=== PATIENT | male | born 1980 | race Caucasian/White ===

== ENCOUNTER → 2023-07-23 12:14 | Outpatient (REF) | payer OTHER, SELFPAY ==
[2023-07-23 12:35] VITALS: BP 117/71; BP_SYST 60
[2023-07-23 13:25] VITALS: BP 114/70
== END ==
LOC: RADI 12:14
PROVIDERS: ATTENDING PHYSICIAN Internal Medicine Hematology & Oncology; FAMILY PHYSICIAN Family Medicine
DX: Z45.2 Encounter for adjustment and management of vascular access device (principal); Z92.21 Personal history of antineoplastic chemotherapy; Z85.028 Personal history of other malignant neoplasm of stomach
CPT/HCPCS: 36590; 77001

== ENCOUNTER 2023-09-29 03:03 | Observation (INO) | payer SELFPAY ==
[2023-09-28 19:54] VITALS: BP 143/70
[2023-09-28 20:46] LABS: % Basophils 0.4 % (0-2); % Eosinophils 1.6 % (0-6); % Immature Granulocytes 0.3 % (0-0.5); % Lymphocytes 14.5 % (20.5-51.1); % Monocytes 6.6 % (1.7-9.3); % Neutrophils 76.6 % (42.2-75.2); Absolute Eosinophils 0.1 10^3/uL (0-0.7); Absolute Lymphocytes 1.1 10^3/uL (1.2-3.4); Absolute Monocytes 0.5 10^3/uL (0.1-0.6); Absolute Neutrophils 5.6 10^3/uL (1.4-6.5); Hematocrit 37.1 % (39.0-52.0); Hemoglobin 12.6 g/dL (13.0-18.0); Mean Corpuscular Hgb 29.2 pg (27.0-31.0); Mean Corpuscular Volume 85.9 fL (80.0-94.0); Mean Platelet Volume 9.5 fL (7.4-10.4); Nucleated Red Blood Cells % 0 % (-); Platelet Count 247 10^3/uL (130-400); Red Blood Cell Count 4.32 10^6/uL (4.70-6.10); Red Cell Dist. Width 14.4 % (11.5-14.5); White Blood Cell Count 7.3 10^3/uL (4.8-10.8)
[2023-09-28] MEDS: ZOFRAN 4 MG IV (20:46)
[2023-09-28 20:51] VITALS: BP 143/78
[2023-09-28 20:52] LABS: ALT (SGPT) 51 U/L (0-50); AST (SGOT) 46 U/L (17-59); Albumin 4.4 g/dl (3.5-5.0); Alkaline Phosphatase 144 U/L (38-126); Blood Urea Nitrogen 28 mg/dl (9-20); Calcium 9.7 mg/dl (8.4-10.2); Carbon Dioxide 24 mmol/L (22-30); Chloride 104 mmol/L (98-107); Glucose 115 mg/dl (70-99); Potassium 4.1 mmol/L (3.5-5.1); Sodium 138 mmol/L (135-145); Total Bilirubin 0.5 mg/dl (0.2-1.3); eGFR > 60.00
[2023-09-28 21:00] VITALS: BP 124/51
[2023-09-28 21:00] LABS: INR 1.01; PT 13.1 Sec (11.4-14.6)
[2023-09-28 21:01] LABS: APTT 26.8 Sec (23.4-35.0)
[2023-09-28 21:02] LABS: Alcohol None Detected; Lactic Acid 1.5 mmol/L (0.7-2.0); Lipase 67 U/L (23-300)
[2023-09-28] MEDS: NSS 1000 IV (21:12)
--- NOTE | 2023-09-28 21:50 | ED.GENMED ---
History of Present Illness
General
Chief Complaint: Abdominal Symptoms
Source: patient
Exam Limitations: none
Time Seen by Provider: 09/28/23 20:23
Nursing documentation reviewed up to this point in time: agreed with
History of Present Illness
History of Present Illness:
Pleasant 43-year-old male who presents with epigastric abdominal pain. Patient has had a history of esophageal cancer and had a gastrectomy 2 years ago. Patient states that he has had this pain intermittently, especially after drinking. He states
that tonight he had the pain without drinking. Symptoms began approximate 1 hour prior to arrival. Patient does have a history of gastroenteritis and GI bleed. He has had a port in his right upper chest which she states was removed recently.
Past History
Past History
ED Past Medical History: Cancer (Distal esophagus and gastric with partial esophagectomy and gastrectomy in March 2021) and Other (gastritis)
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
Social History
Tobacco: Former smoker
Alcohol: Occasional
Personal: Single
Living: with family
Employment: Employed
Review of Systems
Review of Systems
Allergies reviewed?: Yes
All Other Systems: ROS reviewed and negative except as documented in HPI and ROS
Constitutional: Reports no symptoms
EENT: Reports no symptoms
Respiratory: Reports no symptoms
Cardiac: Reports no symptoms
ABD/GI: Reports abdominal pain and nausea
: Reports no symptoms
Musculoskeletal: Reports no symptoms
Skin: Reports no symptoms
Neurological: Reports no symptoms
Endocrine: Reports no symptoms
Hematologic/Lymphatic: Reports no symptoms
Psychiatric: Reports no symptoms
Phy Exam
General Physical Exam
General Presentation: well appearing and no apparent distress
General Skin: warm and dry
General Habitus: normal
General Mental: alert
General Hydration: appears well hydrated
ENT Exam
ENT Exam: EOMI, pharynx normal, neck supple and normocephalic
Eye Exam
Eye Exam: PERRL, cornea clear and conjunctiva normal
Cardiovascular Exam
Cardiovascular Exam: regular rate/rhythm, no edema, no murmur and normal peripheral pulses
Pulmonary Exam
Pulmonary Exam: lungs clear, no respiratory distress, no rales, no crackles, no rhonchi, no stridor, no wheezing and no cough
Gastrointestinal Exam
Gastrointestinal Exam: normal bowel sounds, soft, non distended and guarding
Palpation: generalized: Mild tenderness
Neurological Exam
Neurological Exam: alert, oriented x3, no motor deficits and speech normal
Musculoskeletal Exam
Musculoskeletal Exam: full ROM and no edema
Skin Exam
Skin Exam: normal color, warm/dry, no rash and no petechia
Psychiatric Exam
Psychiatric Exam: normal mood/affect
Course
Orders/Labs/Results
Orders:
Orders
09/28/23 20:32
Electrocardiogram (*1) Urgent
Reason for Study: Bradycardia / Tachycardia
09/28/23 20:33
EKG- Treatment ONCE
09/28/23 20:34
Complete Blood Count/With Diff Urgent
Comprehensive Metabolic Panel Urgent
09/28/23 20:37
Urinalysis Reflex To Culture Urgent
Date Specimen was Collected: 09/29/23
Time Specimen was Collected: 00:06
09/28/23 20:40
Alcohol Urgent
Lactic Acid Urgent
Lipase Urgent
PTT Urgent
Prothrombin Time Urgent
09/28/23 20:44
Ondansetron Injectable [Zofran] 4 mg .ROUTE .[facility]
09/28/23 20:45
Ondansetron Injectable [Zofran] 4 mg IV NOW STA
09/28/23 21:11
0.9% Sodium Chloride 1000 ml [Nss] 1,000 ml IV BOLUS
09/28/23 21:36
Iohexol [Omnipaque] See Protocol PO NOW STA
09/28/23 21:55
Pantoprazole [Protonix IV] 80 mg IV NOW STA
09/28/23 23:25
CT Abd/Pel (IV only)-DH only Urgent
Comment:
Reason For Exam: abd pain, unable to tolerate po
09/29/23 00:04
HYDROmorphone [Dilaudid] 0.5 mg .ROUTE .[facility]
09/29/23 00:07
HYDROmorphone [Dilaudid] 0.5 mg IV NOW STA
09/29/23 00:43
US Abdomen Complete/Upper Urgent
Comment:
Reason For Exam: epigastric and RUQ pain
09/29/23 02:47
Admit/Transfer Patient As Directed
Co-Sign Provider:
Level of Care: Observation services
Assign to:: Medical/Surgical
Physician / Group: Derik
Diagnosis: Abd Pain / Hemangioma
Code Status As Directed
Resuscitation Status: Full Code
09/29/23 03:53
Acetaminophen [Tylenol] 650 mg PO Q4HPRN PRN
HYDROmorphone [Dilaudid] 0.5 mg IV Q4HPRN PRN
Ketorolac [Toradol] 15 mg IV Q6HPRN PRN
Lactated Ringers [Lr] 1,000 ml IV 100 mls/hr
Ondansetron Injectable [Zofran] 4 mg IV Q6HPRN PRN
Polyethylene Glycol Powder [Miralax] 17 grams PO DAILYPRN PRN
09/29/23 03:53
Consult Notification Routine
Specialty to Notify: Surgical
SURGICAL CONSULT Routine
Consulting Provider: Aldair Estrada
Was physician already notified: No
Reason for consult: RUQ Pain
Activity As Directed
Activity Level: Ambulate
Bladder Scan As Directed
Follow Bladder Retention/Intermittent Cath Algorithm?: Yes
PRN if no void in __ hours: 6
Frequency: Per Retention Algorithm
If Bladder Scan Result >: 400
then:: Straight cath
I/O [Intake/ Output] As Directed
Frequency: Per unit guidelines
Pneumatic Compression Sleeves As Directed
Type: Knee high
Straight Cath As Directed
Frequency: Per Retention Algorithm
Additional Instructions: straight cath as needed per acute urinary retention algorithm for 24 hrs
Additional Instructions: for bladder scan greater than 400 mL
Vital Signs As Directed
Frequency: Per unit guidelines
Oxygen Therapy [O2 Therapy] [RESP] Routine
Titrate/Wean O2 to maintain O2 sat greater than (%): 94
DX Deep Vein Thrombosis Video Routine
09/29/23 05:42
Complete Blood Count/No Diff IN AM
09/29/23 Breakfast
NPO
Allow oral meds: Yes
Allow clear liquids: Sips of Clears
Hida Scan [NM Hepatobiliary (hida)] IN AM
Comment:
Reason For Exam: Cholecystitis
09/29/23 08:00
Pantoprazole [Protonix IV] 40 mg IV DAILY
Abnormal Lab Results
09/28/23 09/29/23
20:34 00:07
RBC 4.32 L 10^6/uL
(4.70-6.10)
Hgb 12.6 L g/dL
(13.0-18.0)
Hct 37.1 L %
(39.0-52.0)
Absolute Lymphs (auto) 1.1 L 10^3/uL
(1.2-3.4)
Neutrophils % 76.6 H %
(42.2-75.2)
Lymphocytes % 14.5 L %
(20.5-51.1)
BUN 28 H mg/dl
(9-20)
Glucose 115 H mg/dl
(70-99)
ALT 51 H U/L
(0-50)
Alkaline Phosphatase 144 H U/L
(38-126)
Urine Ketones 1+ A
(Negative)
09/28/23 20:34
09/28/23 20:34
Vital Signs
Initial and Last Documented VS:
Initial Vital Signs
Temp Pulse Resp BP Pulse Ox
98.1 F 50 18 143/70 99
09/28/23 19:54 09/28/23 19:54 09/28/23 19:54 09/28/23 19:54 09/28/23 19:54
Last Documented Vital Signs
Temp Pulse Resp BP Pulse Ox
99.5 F 59 16 121/55 94
09/29/23 18:12 09/29/23 15:58 09/29/23 15:58 09/29/23 15:58 09/29/23 15:58
*Pulse Oximetry
Patient hypoxic: no
*Critical Care Note
Total Time (30-74mins, 75-104mins- exclusive of procedures): Not Applicable
Update Note
Update Note:
09/28/2023 2232 PM: Patient attempted to drink oral contrast but he cannot keep it down. Despite Zofran he is still unable to drink the oral contrast. CT scan will be switched to IV only.
IMPRESSION:
No acute intra-abdominal pathology
No bowel obstruction, inflammatory process, or perforation
Stable postsurgical changes post esophagectomy with colonic interposition
Massive hiatal hernia containing fat, small and large bowel loops, and portion of pancreas
No signs of acute complication
3.8 x 3.7 cm heterogeneous low-attenuation lesion in the segment VIII
Suggestive of metastasis
2 cm low attenuation lesion with peripheral enhancement in the posterior right lobe of liver(segment VII)
Indeterminate
No radiodense gallstones
Gallbladder wall is thickened measuring 4-5 mm
No appreciable pericholecystic inflammatory changes
Correlate for any right upper quadrant pain/tenderness. If concern for acute gallbladder disease, consider right upper quadrant ultrasound for further evaluation
Colonic diverticulosis without signs of diverticulitis
ED Attending Note
-
Portions of this chart may have been created with voice recognition software.� Occasional wrong word or��sound alike� substitutions may have occurred due to the inherent limitations of voice recognition software.
Discharge Plan
Departure
Patient Disposition: Admit
Date of Disposition: 09/29/23
Time of Disposition: 01:21
Admit to: Med/Surg
Presentation/result/management discussed w/ accepting MD/DO: Hospitalist
Discharge Problem:
Intractable abdominal pain, History of gastrectomy
Interventions
Interventions:
*Risk Screen - Suicide Last Done: 09/28/23 19:55
*General Assessment Last Done: 09/28/23 19:55
*Neglect/Abuse Screening Last Done: 09/28/23 19:55
ED- Fall Risk Assessment Last Done: 09/28/23 23:00
*ED COVID-19 Vaccine History Last Done: 09/28/23 20:50
*Nursing Disposition Last Done: 09/29/23 03:45
MS-Tjgbmn-Nkbvnyifqv Assessment Last Done: 09/28/23 20:15
Discharge Date and Time
Discharge Date/Time: 09/29/23 03:45
[2023-09-28] MEDS: OMNIPAQUE 50 ML PO (21:54)
[2023-09-28] MEDS: PROTONIX IV 80 MG IV (22:21)
[2023-09-28 22:23] VITALS: BP 119/59
[2023-09-28 23:00] VITALS: BP 127/78
[2023-09-29] VITALS (8 sets, daily range): BP systolic 103–143; BP diastolic 53–79; BMI 28.2; BMI 28.1
[2023-09-29] MEDS: DILAUDID 0.5 MG IV ×2 (00:07→17:07)
[2023-09-29 00:26] LABS: Urine Albumin Negative (Neg - Trace); Urine Bilirubin Negative (Negative); Urine Character Clear (Clear); Urine Color Yellow; Urine Glucose Negative (Negative); Urine Ketone 1+ (Negative); Urine Leukocyte Negative (Negative); Urine Nitrite Negative (Negative); Urine Occult Blood Negative (Negative); Urine Urobilinogen Negative (Neg - 1+)
--- NOTE | 2023-09-29 02:53 | HPS.HSE ---
Family Physician
-
Family Physician: Kane Casper
Chief Complaint
-
Abd Pain
History of Present Illness
Patient is a 43y M with PMH significant for esophageal cancer s/p esophagectomy / gastrectomy and chemotherapy who presents to ED complaining of abdominal pain. Patient states that he was feeling well until sudden onset of epigastric / RUQ
abdominal pain this evening. Pain was associated with nausea and several episodes of 'dry heaves'. He denies any fevers / chills. Had a normal appearing BM this AM. No other recent complaints / concerns.
Patient underwent surgery for his esophageal cancer in March 2021. He is no longer on any active therapy and - in fact - had his port removed in June 2023.
Patient has had similar symptoms in the past which have been attributed to gallbladder disease. He has been seen by Surgery who recommended avoiding fatty / fried meals.
Patient denies any recent high fat foods. He drinks socially, but had no alcohol at all this past weekend.
Medical History
Past Medical History
Past Medical History: Reports Other
Additional Past Medical History:
Esophageal Cancer
Hiatal Hernia
Hepatic Hemangiomas
Past Surgical History: Reports Other
Additional Past Surgical History:
Distal Esophagectomy
Gastrectomy
Social History
Tobacco: Former Smoker (Quit smoking in 2021.)
Alcohol: Occasional (Social alcohol use. )
Drug: None
Family History
Family History: Other (Grandmother: Breast Cancer)
Allergies / Home Medications
Allergies reflects when Allergies were last updated in [facility],.
Home Medications with original date entered in [facility],
Allergy/Medication List:
Allergies
Allergy/AdvReac Type Severity Reaction Status Date / Time
No Known Allergies Allergy Verified 09/29/23 02:14
Home Medications
No Meds [No Current Medications] 03/08/23
Review of Systems
-
History Source: Patient
A 12 point ROS was completed and negative except as noted: Yes
Constitutional: Denies Fever or Chills
Respiratory: Denies Cough or Trouble Breathing
Cardiac: Denies Chest Pain or Palpitations
Abdomen/GI: Reports Abdominal Pain, Nausea and Vomiting; Denies Diarrhea, Constipated, Bloody Stools or Black Stools
: Denies Dysuria, Frequency or Flank Pain
Neurological: Denies Dizzy or Headache
Psych: Denies Depression or Anxiety
Physical Exam
Vital Signs
Vital Signs
Temp Pulse Resp BP Pulse Ox
98.1 F 49 19 121/63 94
09/28/23 19:54 09/29/23 02:30 09/29/23 02:30 09/29/23 02:12 09/29/23 02:30
Physical Exam
General: Other (43y M in moderate distress due to pain.)
HEENT: Moist mucous membranes and PERRLA
Respiratory: Clear; No Wheezes, Rales or Rhonchi
Cardiac: S1/S2, Regular Rhythm and Bradycardia; No Murmur
GI: Soft, Non Distended, Normal Bowel Sounds and Other (Pos marked epigastric and RUQ tenderness. Pos guarding. No evident rebound. No skin changes / ecchymoses.)
Musculoskeletal: No Clubbing, No Cyanosis and No Edema
Neuro: AO x 3
Laboratory Results
-
09/28/23 20:34
09/28/23 20:34
Laboratory Results
PT 13.1 Sec (11.4-14.6) 09/28/23 20:40
INR 1.01 09/28/23 20:40
APTT 26.8 Sec (23.4-35.0) 09/28/23 20:40
Lactic Acid 1.5 mmol/L (0.7-2.0) 09/28/23 20:40
Total Bilirubin 0.5 mg/dl (0.2-1.3) 09/28/23 20:34
AST 46 U/L (17-59) 09/28/23 20:34
ALT 51 U/L (0-50) H 09/28/23 20:34
Alkaline Phosphatase 144 U/L (38-126) H 09/28/23 20:34
Lipase 67 U/L (23-300) 09/28/23 20:40
Impression/Plan
-
A/P: Patient is a 43y M with PMH significant for esophageal cancer s/p major surgery who presents to ED complaining of abdominal pain, N/V that started this evening.
N/V
Abdominal Pain
Liver Lesion
History of Esophageal Cancer s/p Esophagectomy / Gastrectomy
Large Hiatal Hernia secondary to the above
- Observe overnight for further evaluation and treatment.
- CT and US done in the ED this evening.
- Both show hepatic lesion measuring 3.7cm in size that is suspicious for new metastatic lesion.
- On CT, it appears that this lesion is separate from the known 2cm hemangioma that patient is aware of.
- Inflammatory changes are also appreciated in / around the gallbladder wall. No stones.
- NPO, IVF support, pain control.
- Surgery evaluation.
- HIDA in the AM to further evaluate for possible cholecystectomy.
- ? biopsy of this apparent new liver lesion to exclude metastasis / recurrent malignancy.
- Will ask Oncology to evaluate / comment.
- Follow for any new / worsening symptoms.
DVT Prophylaxis: SCDs
Code Status: Full
[2023-09-29] MEDS: TORADOL 15 MG IV (04:17)
[2023-09-29] MEDS: LR 1000 IV ×2 (04:18→17:06)
--- NOTE | 2023-09-29 04:42 | PTCARENOTE ---
Pt walked from stretcher to bed w/ steady gait. Pt c/o 5/10 pain in RUQ. PRN IV toradol given as ordered (see MAR). Pt stated he has been drinking socially the last 4 weekends and last drink was a week ago. Pt states he smokes cigarettes when
drinking. Pt states he has not been following his recommended high protein/low fat diet. Pt oriented to room, call nye within reach, and plan of care ongoing.
[2023-09-29 06:16] LABS: Hematocrit 35.4 % (39.0-52.0); Hemoglobin 11.7 g/dL (13.0-18.0); Mean Corp Hgb Conc. 33.1 g/dL (33.0-37.0); Mean Corpuscular Hgb 28.5 pg (27.0-31.0); Mean Corpuscular Volume 86.1 fL (80.0-94.0); Mean Platelet Volume 9.7 fL (7.4-10.4); Platelet Count 228 10^3/uL (130-400); Red Blood Cell Count 4.11 10^6/uL (4.70-6.10); Red Cell Dist. Width 14.4 % (11.5-14.5); White Blood Cell Count 8.6 10^3/uL (4.8-10.8)
[2023-09-29 06:37] LABS: ALT (SGPT) 44 U/L (0-50); AST (SGOT) 43 U/L (17-59); Albumin 3.9 g/dl (3.5-5.0); Alkaline Phosphatase 124 U/L (38-126); Blood Urea Nitrogen 22 mg/dl (9-20); Calcium 9.4 mg/dl (8.4-10.2); Carbon Dioxide 25 mmol/L (22-30); Chloride 103 mmol/L (98-107); Direct Bilirubin 0.2 mg/dl (0.0-0.4); Estimated Creatinine Clearance > 125 ml/min; Glucose 122 mg/dl (70-99); Potassium 4.4 mmol/L (3.5-5.1); Sodium 137 mmol/L (135-145); Total Bilirubin 0.6 mg/dl (0.2-1.3); Total Protein 6.3 g/dl (6.3-8.2); eGFR > 60.00
[2023-09-29] MEDS: NSS (PRESERVATIVE FREE) 10 ML IV (08:47)
[2023-09-29] MEDS: PROTONIX IV 40 MG IV (08:48)
--- NOTE | 2023-09-29 10:43 | CON.GS ---
Addendum entered and electronically signed by Aldair Estrada MD 09/29/23 15:55:
HIDA scan with nonvisualization of the gallbladder. Concerning for possible cholecystitis; differential includes hepatic metastasis with liver stretch. Increased size of hepatic mass which was previously concerning for metastatic cancer. Awaiting
input from Oncology. If any concern for a metastatic hepatic mass, then would consider transfer to a tertiary care center ([facility]) where he has had all his prior care.
Original Note:
Medical History
-
Chief Complaint: Abdominal pain
History of Present Illness:
Patient is a 43 yo M with a PMH notable for distal esophageal cancer s/p neoadjuvant radiation, open distal esophagectomy and total gastrectomy with EJ reconstruction and adjuvant chemotherapy at [facility]. Mr. Calvo presents with RUQ abdominal
discomfort. He states that he has had persistent discomfort over the past 2 weeks with waxing and waning episodes. No clear association with oral intake. No fevers or chills. Nausea, but no episodes of vomiting (only dry heaves). He denies any
jaundice, pale stools, or tea colored urine.
Past Medical History
Past Medical History: Cancer (Distal esophageal cancer, neoadjuvant radiation, adjuvant chemotherapy)
Past Surgical History: Other (Open distal esophagectomy, total gastrectomy, EJ recon)
Social History
Tobacco: Smoker (Social when drinking)
Alcohol: Binge Drinker
Drug: None
Personal:
Living: With Family
Employment: Employed
Family History
Family History: Reviewed & Noncontributory
Allergies / Home Medications
Allergy/AdvReac Type Severity Reaction Status Date / Time
No Known Allergies Allergy Verified 09/29/23 02:14
�Medication �Instructions �Recorded �Confirmed �Type
No Meds [No Current Medications] 03/08/23 09/29/23 History
Review of Systems
-
A 10 point review of systems was completed, and was negative except as per HPI.
Physical Exam
Vital Signs
Temp Pulse Resp BP Pulse Ox
98.5 F 59 16 110/53 96
09/29/23 08:00 09/29/23 08:00 09/29/23 08:00 09/29/23 08:00 09/29/23 08:00
09/28/23 09/29/23 09/30/23
06:59 06:59 06:59
Actual Weight 88.961 kg
Body Mass Index (BMI) 28.1
Lab Results
09/29/23 05:42
09/29/23 05:42
WBC 8.6 10^3/uL (4.8-10.8) 09/29/23 05:42
Hgb 11.7 g/dL (13.0-18.0) L 09/29/23 05:42
Hct 35.4 % (39.0-52.0) L 09/29/23 05:42
Plt Count 228 10^3/uL (130-400) 09/29/23 05:42
Abs Immat Gran (auto) 0.0 10^3/uL (0-0.05) 09/28/23 20:34
Neutrophils % 76.6 % (42.2-75.2) H 09/28/23 20:34
Physical Exam
General: Well Developed, Well Nourished and No Apparent Distress
HEENT: Normocephalic and Anicteric
Respiratory: Non Labored Respirations
Cardiac: Regular Rhythm
GI: Soft, Non Distended, Tender (RUQ), Incisions (LEFT subcostal well healed) and Other (Non-peritoneal)
Musculoskeletal: No Edema
Skin: Warm and Dry
Neuro: Nonfocal/Grossly Intact
Data Reviewed
-
CT Scan: Image Personally Visualized and interpreted and Report Reviewed by me
Ultrasound: Image Personally Visualized and interpreted and Report Reviewed by me
Labs: Labs Reviewed by me
Assessment / Plan
-
Patient is a 43 yo M p/w RUQ abdominal pain
Difficult to tell the exact cause of his symptoms. Cholecystitis is certainly in the differential especially given the location of his pain as well as CT scan and ultrasound findings. Interestingly he has no stones demonstrated on repeat
ultrasounds, which leads I to question a diagnosis of cholecystitis. Normal WBC, bilirubin, LFTs, ALP, and lipase. Differential also includes gastritis, or ulcerative disease, and underlying liver dysfunction; especially given that his episodes of
pain seem to be exacerbated by episodes of binge drinking. The natural history and pathophysiology of biliary and stone disease was briefly discussed. Order for HIDA scan has already been placed, will follow-up on results of imaging and next
steps. All questions answered.
-- HIDA scan
-- NPO, IVF
--- NOTE | 2023-09-29 13:10 | PTCARENOTE ---
IRAD note: Nuclear med requested Morphine IV during HIDA scan. patient AAO x3, pt identified. Allergy confirmed. RAC PIV flushed and patent. pre med VS: BP 121/70 HR 51 RR 18 SPO2 94%RA. Morphine 2 mg IV given per order. tolerated well. post med VS:
BP 130/70 HR 52 RR 20 SPO2 94% RA.
--- NOTE | 2023-09-29 15:47 | CON.ONC ---
Impression
Impression
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 Completed preoperative FOLFOX 2018 and was variable with postoperative Xeloda compliance and discontinued,
however, had continued trastuzumab since 2021 with last dose June 2022.
Liver lesion of unclear etiology
Acute cholecystitis
abdominal pain related to acute bob
Plan
Plan
acute bob -management per surgery
MRI abdomen to further evaluate liver lesion
Patient History
History of Present Illness
43yo M with PMH locally advanced GE junction adenocarcinoma s/p left thoracoabdominal esophagogastrectomy with Alber-en-Y esophagojejunostomy 04/18/2021. He completed preoperative FOLFOX 2018 and was variable with postoperative Xeloda compliance and
discontinued, however, had continued trastuzumab since 2021 with last dose June 2022. He now presents with acute onset abdominal pain. He reports that abdominal pain onset was approximately 5pm yesterday. He did not like side effects of
dilaudid. He reports that his abdominal pain is tolerable with Toradol. Denies fever, nausea, vomiting, changes in bowels, changes in appetite, or weight loss. He reports intermittent chills over the past month and a swollen/painful right knee x [address] ab/pelvis showed gallbladder is mildly dilated, with adjacent inflammatory change. No radiopaque stones are seen. Findings may be related to acute cholecystitis and a 4.4 cm mass within the superior portion of the liver, new/increased in size
compared to prior study, possible hepatic metastasis. His HIDA scan showed Nonvisualization of the gallbladder suggesting cystic duct obstruction and possible acute cholecystitis.
Past-Medical/Surgical History
PMH: [place], locally advanced GE junction adenocarcinoma, H.pylori
PSH:distal�esophagectomy/gastrectomy 2021
Social: smokes 1 pack/month, drinks several beers and shots of ETOH/week, denies recreational drugs. Lives alone. Employed as [employer]
family: grandmother breast cancer, father brain cancer
Patient Medication
�Medication �Instructions �Recorded �Confirmed �Last Taken �Type
No Meds [No Current Medications] 03/08/23 09/29/23 Unknown History
Active Medications
Generic Name Dose Route Start Last Admin
Trade Name Freq PRN Reason Stop Dose Admin
Acetaminophen 650 mg 09/29/23 03:53
Acetaminophen 325 Mg Tablet PO 10/27/23 03:52
Q4HPRN PRN
Mild Pain / Temp > 101
Hydromorphone HCl 0.5 mg 09/29/23 03:53
Hydromorphone 0.5 Mg/0.5 Ml Syringe IV 10/13/23 03:52
Q4HPRN PRN
Severe Pain
Lactated Ringer's 1,000 mls @ 100 mls/hr 09/29/23 03:53 09/29/23 04:18
Lr IV 1,000 mls
.Q10H EFRAÍN Administration
Ketorolac Tromethamine 15 mg 09/29/23 03:53 09/29/23 04:17
Ketorolac 15 Mg/Ml Injection IV 10/04/23 03:52 15 mg
Q6HPRN PRN Administration
Moderate Pain
Ondansetron HCl 4 mg 09/29/23 03:53
Ondansetron 4 Mg/2 Ml Vial IV 10/27/23 03:52
Q6HPRN PRN
nausea and vomiting
Pantoprazole Sodium 40 mg 09/29/23 08:00 09/29/23 08:48
Pantoprazole Sodium 40 Mg/10 Ml Vial IV 10/27/23 07:59 40 mg
DAILY EFRAÍN Administration
Polyethylene Glycol 17 grams 09/29/23 03:53
Polyethylene Glycol Powder 17 Grams Packet PO 10/27/23 03:52
DAILYPRN PRN
Constipation
Sodium Chloride 0 flush 09/29/23 05:00
Sodium Chloride 0.9% (Flush) Syringe IV 10/27/23 04:59
PER PROTOCOL EFRAÍN
Sodium Chloride 10 ml 09/29/23 08:00 09/29/23 08:47
Sodium Chloride 0.9% (Preservative Free) 10 Ml Vial IV 10/27/23 07:59 10 ml
DAILY EFRAÍN Administration
Review of Systems
-
Review of systems notable for HPI, otherwise negative
Physical Exam
-
General: Well Developed and Well Nourished
HEENT: Negative Jaundice
Cardiology: Normal Sinus Rhythm
Pulmonary: Clear
GI: Soft and Other (TTP)
Musculoskeletal: Other (right knee with edema)
Extremities: Pulses Present; Negative Phlebitic Signs or Edema
Neurology: Non Focal and Other (speech clear)
Skin: Warm and Dry
Psych: Calm
Labs
Lab Results
WBC 8.6 10^3/uL (4.8-10.8) 09/29/23 05:42
RBC 4.11 10^6/uL (4.70-6.10) L 09/29/23 05:42
Hgb 11.7 g/dL (13.0-18.0) L 09/29/23 05:42
Hct 35.4 % (39.0-52.0) L 09/29/23 05:42
MCV 86.1 fL (80.0-94.0) 09/29/23 05:42
MCH 28.5 pg (27.0-31.0) 09/29/23 05:42
MCHC 33.1 g/dL (33.0-37.0) 09/29/23 05:42
RDW 14.4 % (11.5-14.5) 09/29/23 05:42
Plt Count 228 10^3/uL (130-400) 09/29/23 05:42
MPV 9.7 fL (7.4-10.4) 09/29/23 05:42
Abs Immat Gran (auto) 0.0 10^3/uL (0-0.05) 09/28/23 20:34
Absolute Neuts (auto) 5.6 10^3/uL (1.4-6.5) 09/28/23 20:34
Absolute Lymphs (auto) 1.1 10^3/uL (1.2-3.4) L 09/28/23 20:34
Absolute Monos (auto) 0.5 10^3/uL (0.1-0.6) 09/28/23 20:34
Absolute Eos (auto) 0.1 10^3/uL (0-0.7) 09/28/23 20:34
Absolute Basos (auto) 0.0 10^3/uL (0-0.2) 09/28/23 20:34
Immature Gran % 0.3 % (0-0.5) 09/28/23 20:34
Neutrophils % 76.6 % (42.2-75.2) H 09/28/23 20:34
Lymphocytes % 14.5 % (20.5-51.1) L 09/28/23 20:34
Monocytes % 6.6 % (1.7-9.3) 09/28/23 20:34
Eosinophils % 1.6 % (0-6) 09/28/23 20:34
Basophils % 0.4 % (0-2) 09/28/23 20:34
Creatinine 0.7 mg/dL (0.7-1.3) 09/29/23 05:42
Vital Signs
Vital Signs
Temp Pulse Resp BP Pulse Ox
98.5 F 59 16 110/53 96
09/29/23 08:00 09/29/23 08:00 09/29/23 08:00 09/29/23 08:00 09/29/23 08:00
--- NOTE | 2023-09-29 15:51 | W.PN.HOSP.TC ---
Today's Communication/Plan
-
See plan
Assessment / Plan
Assessment / Plan
Impression:
Patient is a 43y M with PMH significant for esophageal cancer s/p major surgery who presents to ED complaining of abdominal pain, N/V that started this evening.
Right upper quadrant abdominal pain
Concern for acalculous cholecystitis
Liver lesion with concern for metastatic disease
History of esophageal carcinoma status post esophagectomy/gastrectomy
Large hiatal hernia secondary to above
Plan:
Persistent right upper quadrant pain
Exam with right upper quadrant tenderness
Normal LFTs and lipase.
Afebrile with normal WBC
Imaging:
CT scan of the abdomen
1. Gallbladder is mildly dilated, with adjacent inflammatory change. No radiopaque stones are seen. Findings may be related to acute cholecystitis, consider abdominal ultrasound and/or HIDA scan.
2. 4.4 cm mass within the superior portion of the liver, new/increased in size compared to prior study, consistent with hepatic metastasis.
Ultrasound of the abdomen
1. Gallbladder is distended, with gallbladder wall thickening and pericholecystic fluid. Positive Grullon's sign. No stones were demonstrated. Findings are suggestive of acute acalculus cholecystitis in the correct clinical setting.
2. No biliary ductal dilation.
3. Isoechoic lesion with near the hepatic dome, likely corresponding to hepatic metastasis is seen on recent prior CT.
HIDA scan
Patent common bile duct.\\
Nonvisualization of the gallbladder suggesting cystic duct obstruction and possible acute cholecystitis.
With concern for acute acalculous cholecystitis as well as liver lesion traced back on prior imaging including PET scan need oncology evaluation.
Given above, clinical concern for metastatic disease
Discussed with surgery
Keep n.p.o. with
IV fluids
Monitor LFTs
Analgesia
PPI
Anticipated Discharge: > 48 hours
Subjective/Interval History
-
Date of Service: September 29, 2023
Objective Data
-
Labs:
Laboratory Results
09/29/23
05:42
WBC 8.6
Hgb 11.7 L
Hct 35.4 L
Plt Count 228
Sodium 137
Potassium 4.4
Chloride 103
Carbon Dioxide 25
BUN 22 H
Creatinine 0.7
Glucose 122 H
Calcium 9.4
Total Bilirubin 0.6
AST 43
ALT 44
Alkaline Phosphatase 124
Vital Signs:
Vital Signs
Temp Pulse Resp BP Pulse Ox
98.5 F 59 16 110/53 96
09/29/23 08:00 09/29/23 08:00 09/29/23 08:00 09/29/23 08:00 09/29/23 08:00
Physical Exam
-
General: Well Developed and No Apparent Distress
HEENT: Normocephalic, Atraumatic and Moist Mucous Membranes
Respiratory: Clear to Auscultation
Cardiac: Regular Rhythm and S1/S2; Negative Murmur, Rub or Gallop
GI: Soft, Nondistended, Normal Bowel Sounds and Tender (Right upper quadrant tenderness); Negative Organomegaly
Rectal: Deferred by Provider
Musculoskeletal: No Clubbing, No Cyanosis and No Edema
Skin: Negative Rash
Neuro: Awake, Alert, Oriented and Nonfocal/Grossly Intact
--- NOTE | 2023-09-29 16:03 | CM ---
Addendum entered by Jesusita Smith 09/29/23 16:08:
Question regarding insurance eligibility - spoke with Adrian[facility] in [facility] - she reports she will check into insurance and meet with pt if needed
Original Note:
Met with pt at bedside
Pt reports he lives alone in an apartment. 2 steps to enter
Independent, reports he works FT doing [employer] work, drives, does own meal prep
Has ride at d/c
DME - none
SNF - denies past hx
HH - had VN in past, unsure of agency
PCP - Dr Theodore Casper
Pharm - [facility]
CM will follow for d/c needs
Plan - anticipate home no needs
[2023-09-29] MEDS: ZOSYN 50 IV ×2 (18:20→23:12)
[2023-09-29] MEDS: ZOFRAN 4 MG IV (23:20)
[2023-09-30] VITALS (12 sets, daily range): BP systolic 101–133; BP diastolic 49–78
[2023-09-30] MEDS: LR 1000 IV ×2 (04:47→12:24)
[2023-09-30] MEDS: TYLENOL 650 MG PO (04:55)
[2023-09-30] MEDS: ZOSYN 50 IV ×3 (05:42→18:37)
[2023-09-30 06:28] LABS: Hematocrit 34.6 % (39.0-52.0); Hemoglobin 11.7 g/dL (13.0-18.0); Mean Corp Hgb Conc. 33.8 g/dL (33.0-37.0); Mean Corpuscular Hgb 28.7 pg (27.0-31.0); Mean Corpuscular Volume 84.8 fL (80.0-94.0); Mean Platelet Volume 10.4 fL (7.4-10.4); Platelet Count 192 10^3/uL (130-400); Red Blood Cell Count 4.08 10^6/uL (4.70-6.10); Red Cell Dist. Width 14.6 % (11.5-14.5); White Blood Cell Count 7.9 10^3/uL (4.8-10.8)
[2023-09-30 06:54] LABS: ALT (SGPT) 525 U/L (0-50); AST (SGOT) 605 U/L (17-59); Albumin 3.4 g/dl (3.5-5.0); Alkaline Phosphatase 232 U/L (38-126); Blood Urea Nitrogen 14 mg/dl (9-20); Calcium 8.7 mg/dl (8.4-10.2); Carbon Dioxide 23 mmol/L (22-30); Chloride 103 mmol/L (98-107); Estimated Creatinine Clearance > 125 ml/min; Glucose 122 mg/dl (70-99); Potassium 3.8 mmol/L (3.5-5.1); Sodium 134 mmol/L (135-145); Total Bilirubin 3.1 mg/dl (0.2-1.3); Total Protein 5.7 g/dl (6.3-8.2); eGFR > 60.00
[2023-09-30 08:14] LABS: Absolute Neutrophils -Man Diff 7.4 10^3/uL (1.4-6.5); Band Neutrophils 22 % (0-3); Lymphocytes 3 % (20-51); Metamyelocytes 2 % (-); Monocytes 1 % (2-9); Platelets Checked Yes; Segmented Neutrophils 72 % (42-75)
[2023-09-30 08:15] LABS: Normal RBC Morphology Yes; Total Cells Counted 100
[2023-09-30] MEDS: NSS (PRESERVATIVE FREE) 10 ML IV (09:00)
[2023-09-30] MEDS: PROTONIX IV 40 MG IV (09:00)
--- NOTE | 2023-09-30 10:10 | W.PN.GS2 ---
Today's Communication / Plan
-
Plan for laparoscopic cholecystectomy and intraoperative cholangiogram this afternoon.
Assessment / Plan
-
Mr. Calvo is a 43M with a past medical history of esophageal cancer and is s/p distal esophagectomy, total gastrectomy, neoadjuvant radiation therapy, and adjuvant chemotherapy 2 years ago, c/o RUQ discomfort for 2 weeks. HIDA Scan yesterday showed
nonvisualization of the gallbladder suggesting possible cystic duct obstruction and acute cholecystitis. In addition, the patients liver chemistries are markedly elevated today when compared to yesterday. It is possible that the patient has a stone
or biliary sludge that was in the cystic duct and has now entered the CBD. Plan is to perform a laparoscopic cholecystectomy today with intraoperative cholangiogram to visualize any stones. Had a lengthy discussion with the patient regarding the
procedure and the possibility of cancer metastasis in the area, which would necessitate a different therapeutic modality.
1. Acute Cholecystitis
a. Continue NPO and IVF
b. Continue Zosyn
c. Continue pain control, antiemetic, and Miralax as needed.
d. Patient will be scheduled for laparoscopic cholecystectomy with intraoperative cholangiogram this afternoon.
2. Potential Metastasis of Previous Cancer
a. Follow up with Oncology
Time Spent
Total Time Spent with Patient (in minutes): 15
Subjective Data
-
Date of Service: September 30, 2023
Mr Calvo is a 43 M with a PMHx of alcohol use disorder and esophageal cancer s/p neoadjuvant radiation, distal esophagectomy and total gastrectomy with EJ reconstruction admitted 2 days ago for RUQ discomfort. Today, the patient notes mild discomfort
improving from yesterday after pain medication administration.
Objective Data
-
Intake and Output
09/29/23 09/30/23 10/01/23
06:59 06:59 06:59
Intake Total 1200 / 1200
Balance 1200 / 1200
Intake:
IV fluids (Total) 1200 / 1200
Other:
Number of approximated MODERATE 10
amounts of urine
Number of approximated LARGE 1
amounts of urine
Vital Signs
Temp Pulse Resp BP Pulse Ox
98.6 F 52 16 121/67 96
09/30/23 07:00 09/30/23 07:00 09/30/23 07:00 09/30/23 07:00 09/30/23 07:00
Lab Results
09/30/23 05:37
09/30/23 05:37
Calcium 8.7 mg/dl (8.4-10.2) 09/30/23 05:37
Total Bilirubin 3.1 mg/dl (0.2-1.3) H D 09/30/23 05:37
Direct Bilirubin 0.2 mg/dl (0.0-0.4) 09/29/23 05:42
AST 605 U/L (17-59) H* 09/30/23 05:37
ALT 525 U/L (0-50) H* 09/30/23 05:37
Alkaline Phosphatase 232 U/L (38-126) H 09/30/23 05:37
Total Protein 5.7 g/dl (6.3-8.2) L 09/30/23 05:37
Albumin 3.4 g/dl (3.5-5.0) L 09/30/23 05:37
HIDA Scan
Impression: Patent common bile duct.
Nonvisualization of the gallbladder suggesting cystic duct obstruction and possible acute cholecystitis.
Physical Exam
-
Constitutional: Well developed and well nourished male in no acute distress.
HEENT: Normocephalic and anicteric.
Respiratory: Normal work of breathing.
GI: Soft, nondistended abdomen with mild to moderate tenderness in the RUQ. There are old incisions which are intact, well healed, non-erythematous and nontender.
Skin: Warm and dry.
--- NOTE | 2023-09-30 10:29 | W.SUR.PREOP ---
Pre-Operative Surgical Note
-
I have examined this patient prior to the performance of the scheduled procedure.
The patient's condition is unchanged from the time of the current History and
Physical and the patient is able to undergo the scheduled procedure.
--- NOTE | 2023-09-30 12:26 | W.PN.ONC ---
Today's Communication / Plan
-
Apparent cholecystectomy today. Hopefully that is what is responsible for the dramatic bump in his liver enzymes compared to yesterday. Unable to tolerate MRI. We can always do a PET scan as an outpatient to further evaluate.
Impression
Impression
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 Completed preoperative FOLFOX 2018 and was variable with postoperative Xeloda compliance and discontinued,
however, had continued trastuzumab since 2021 with last dose June 2022.
Liver lesion of unclear etiology
Acute cholecystitis
abdominal pain related to acute bob
Plan
Plan
acute bob -management per surgery
MRI abdomen to further evaluate liver lesion
Subjective/Objective
Subjective/Objective
He had a panic attack as the MRI began. He is otherwise feeling well. He has minimal pain. Examination is unchanged.
Vital Signs:
Vital Signs
Temp Pulse Resp BP Pulse Ox
98.6 F 52 16 121/67 96
09/30/23 07:00 09/30/23 07:00 09/30/23 07:00 09/30/23 07:00 09/30/23 07:00
Lab Results:
Laboratory Data
WBC 7.9 10^3/uL (4.8-10.8) 09/30/23 05:37
Hgb 11.7 g/dL (13.0-18.0) L 09/30/23 05:37
Plt Count 192 10^3/uL (130-400) 09/30/23 05:37
PT 13.1 Sec (11.4-14.6) 09/28/23 20:40
INR 1.01 09/28/23 20:40
APTT 26.8 Sec (23.4-35.0) 09/28/23 20:40
eGFR > 60.00 09/30/23 05:37
--- NOTE | 2023-09-30 13:03 | W.PN.GS2 ---
Today's Communication / Plan
-
-- Laparoscopic cholecystectomy with possible cholangiogram
Assessment / Plan
-
Patient is a 43 yo M p/w RUQ abdominal pain
Symptoms most likely biliary in origin. His bump in bilirubin and LFT's further supports this. Less likely to be liver stretch related to his liver lesion and possible metastatic cancer. Patient unable to tolerate MRI. Endoscopic interventions
of his biliary tree are limited given his surgical anatomy. Given his persistence and symptoms recommend cholecystectomy. He is at increased risk for operative complications given his prior surgical history, radiation, active alcohol use,
potential cancer within his liver, and a delayed presentation. Limited other options. Patient medical acknowledges understanding and wishes to proceed.
Plan for a laparoscopic, possible open, cholecystectomy with intraoperative cholangiogram. The procedure itself, as well as the risks, benefits, and alternatives was discussed. Specifically, we discussed the risks of bleeding, infection, injury to
surrounding structures (bowel, bile ducts), CBD injury, need for open procedure. As noted above he is at increased risk for operative complications. Typical post procedure recovery including pain management and the 10 to 20% risk of fluctuations
in GI function was discussed. All questions answered. Consents
-- Laparoscopic cholecystectomy with possible cholangiogram
-- NPO, IVF
-- Antibiotics: Zosyn
Subjective Data
-
Date of Service: September 30, 2023
Improved though persistent RUQ abdominal pain. No nausea or vomiting. Low-grade fever to 100.1.
Objective Data
-
Intake and Output
09/29/23 09/30/23 10/01/23
06:59 06:59 06:59
Intake Total 1200 / 1200
Balance 1200 / 1200
Intake:
IV fluids (Total) 1200 / 1200
Other:
Number of approximated MODERATE 10
amounts of urine
Number of approximated LARGE 1
amounts of urine
Vital Signs
Temp Pulse Resp BP Pulse Ox
98.6 F 52 16 121/67 96
09/30/23 07:00 09/30/23 07:00 09/30/23 07:00 09/30/23 07:00 09/30/23 07:00
Lab Results
09/30/23 05:37
09/30/23 05:37
Calcium 8.7 mg/dl (8.4-10.2) 09/30/23 05:37
Total Bilirubin 3.1 mg/dl (0.2-1.3) H D 09/30/23 05:37
Direct Bilirubin 0.2 mg/dl (0.0-0.4) 09/29/23 05:42
AST 605 U/L (17-59) H* 09/30/23 05:37
ALT 525 U/L (0-50) H* 09/30/23 05:37
Alkaline Phosphatase 232 U/L (38-126) H 09/30/23 05:37
Total Protein 5.7 g/dl (6.3-8.2) L 09/30/23 05:37
Albumin 3.4 g/dl (3.5-5.0) L 09/30/23 05:37
Physical Exam
-
Gen: NAD
Abd: soft, tender in RUQ, ND, non-peritoneal, prior incision well healed
--- NOTE | 2023-09-30 16:50 | W.IMMPOSTOP ---
Addendum entered and electronically signed by Aldair Estrada MD 10/08/23 14:23:
Dic# [id number]
Original Note:
Surgical Immed Post Op Note
-
Primary Surgeon: Natalie
Assisting Surgeon: CHANDRIKA Sood
Pre-op Diagnosis: Cholecystitis
Post-op Diagnosis: Choledocholithiasis
Procedure Performed: Laparoscopic cholecystectomy with IOC and LCBDE
Anesthesia Type: General
Specimen / Cultures:
1. Gallbladder
Estimated Blood Loss: 11 cc
Complications: None
Operative Findings:
1. Severely inflamed and gangrenous GB, patchy necrosis, decompression needle used
2. Critical view of safety
3. IOC with distal filling defect, Glucagon admin, wire passed, catheter passes, eventual sphincteroplasty dilation using 8 mm [employer] Rolling [employer] Operator balloon, final cholangiogram with passage of contrast into duodenum
4. Artery taken with clip, duct with stapler
5. 19 Fr Arie drain into operative field
Plan:
-- Repeat CMP and lipase in AM
-- Continue abx for 4 days post-op
-- Can remove AIDA drain if clear in POD#2
[2023-09-30] MEDS: INDOCIN 100 MG RECTAL (17:48)
[2023-09-30] MEDS: NORMOSOL-R 1000 IV (17:50)
--- NOTE | 2023-09-30 17:57 | W.PN.HOSP.TC ---
Today's Communication/Plan
-
IV antibiotics
OR for laparoscopic cholecystectomy.
Assessment / Plan
Assessment / Plan
Impression:
Patient is a 43y M with PMH significant for esophageal cancer s/p major surgery who presents to ED complaining of abdominal pain, N/V that started this evening.
Right upper quadrant abdominal pain
Concern for acalculous cholecystitis
Liver lesion with concern for metastatic disease
History of esophageal carcinoma status post esophagectomy/gastrectomy
Large hiatal hernia secondary to above
Plan:
Persistent right upper quadrant pain
Exam with right upper quadrant tenderness
Normal LFTs and lipase.
Afebrile with normal WBC
Imaging:
CT scan of the abdomen
1. Gallbladder is mildly dilated, with adjacent inflammatory change. No radiopaque stones are seen. Findings may be related to acute cholecystitis, consider abdominal ultrasound and/or HIDA scan.
2. 4.4 cm mass within the superior portion of the liver, new/increased in size compared to prior study, consistent with hepatic metastasis.
Ultrasound of the abdomen
1. Gallbladder is distended, with gallbladder wall thickening and pericholecystic fluid. Positive Grullon's sign. No stones were demonstrated. Findings are suggestive of acute acalculus cholecystitis in the correct clinical setting.
2. No biliary ductal dilation.
3. Isoechoic lesion with near the hepatic dome, likely corresponding to hepatic metastasis is seen on recent prior CT.
HIDA scan
Patent common bile duct.\\
Nonvisualization of the gallbladder suggesting cystic duct obstruction and possible acute cholecystitis.
Noted bump in LFTs and most likely consistent with acute cholecystitis.
Plan is for laparoscopic cholecystectomy with possible intraoperative cholangiogram.
Liver mass with concern for metastatic disease.
Patient was not able to tolerate MRI.
Plan is for outpatient follow-up including PET scan.
Anticipated Discharge: 24 - 48 hours
Subjective/Interval History
-
Date of Service: September 30, 2023
Objective Data
-
Labs:
Laboratory Results
09/30/23
05:37
WBC 7.9
Hgb 11.7 L
Hct 34.6 L
Plt Count 192
Sodium 134 L
Potassium 3.8
Chloride 103
Carbon Dioxide 23
BUN 14
Creatinine 0.7
Glucose 122 H
Calcium 8.7
Total Bilirubin 3.1 H D
AST 605 H*
ALT 525 H*
Alkaline Phosphatase 232 H
Vital Signs:
Vital Signs
Temp Pulse Resp BP Pulse Ox
97.7 F 68 16 105/54 91
09/30/23 17:06 09/30/23 17:45 09/30/23 17:45 09/30/23 17:45 09/30/23 17:45
I&O
09/29/23 09/30/23 10/01/23
06:59 06:59 06:59
Intake Total 1200 / 1200
Balance 1200 / 1200
Physical Exam
-
General: Well Developed and No Apparent Distress
HEENT: Normocephalic, Atraumatic and Moist Mucous Membranes
Respiratory: Clear to Auscultation
Cardiac: Regular Rhythm and S1/S2; Negative Murmur, Rub or Gallop
GI: Soft, Nontender, Nondistended and Normal Bowel Sounds; Negative Organomegaly
Rectal: Deferred by Provider
Musculoskeletal: No Clubbing, No Cyanosis and No Edema
Skin: Negative Rash
Neuro: Nonfocal/Grossly Intact
[2023-09-30] MEDS: ROXICODONE 5 MG PO (21:31)
[2023-10-01] MEDS: ZOSYN 50 IV ×4 (00:54→18:30)
[2023-10-01 02:50] VITALS: BP 112/63
[2023-10-01] MEDS: NORMOSOL-R 1000 IV ×3 (02:52→22:18)
[2023-10-01] MEDS: TYLENOL 650 MG PO (05:14)
[2023-10-01 06:18] LABS: Hematocrit 33.1 % (39.0-52.0); Mean Corp Hgb Conc. 33.2 g/dL (33.0-37.0); Mean Corpuscular Hgb 28.9 pg (27.0-31.0); Mean Corpuscular Volume 87.1 fL (80.0-94.0); Mean Platelet Volume 10.1 fL (7.4-10.4); Platelet Count 152 10^3/uL (130-400); Red Cell Dist. Width 14.6 % (11.5-14.5); White Blood Cell Count 6.2 10^3/uL (4.8-10.8)
[2023-10-01 06:56] LABS: ALT (SGPT) 590 U/L (0-50); AST (SGOT) 571 U/L (17-59); Albumin 3.1 g/dl (3.5-5.0); Alkaline Phosphatase 211 U/L (38-126); Blood Urea Nitrogen 12 mg/dl (9-20); Calcium 8.6 mg/dl (8.4-10.2); Carbon Dioxide 27 mmol/L (22-30); Chloride 101 mmol/L (98-107); Estimated Creatinine Clearance > 125 ml/min; Glucose 120 mg/dl (70-99); Lipase 32 U/L (23-300); Potassium 4.1 mmol/L (3.5-5.1); Sodium 135 mmol/L (135-145); Total Protein 5.5 g/dl (6.3-8.2); eGFR > 60.00
[2023-10-01 07:00] VITALS: BP 114/65
--- NOTE | 2023-10-01 07:26 | PTCARENOTE ---
notified Dr Villarreal of critical AST and ALT
[2023-10-01] MEDS: PROTONIX IV 40 MG IV (08:06)
[2023-10-01] MEDS: NSS (PRESERVATIVE FREE) 10 ML IV (08:07)
[2023-10-01 11:00] VITALS: BP 121/66
--- NOTE | 2023-10-01 13:01 | W.PN.GS2 ---
Today's Communication / Plan
-
IV abx
Adv diet
Monitor drain
Trend Tbili
Assessment / Plan
-
Patient is a 43 yo M p/w RUQ abdominal pain POD1 s/p lap CCY with IOC and LCBDE with sphincter dilation
Clinically improving
Drain output likely represents washout material and reactive fluid
Tbili trended up today
-- Cont IV abx
-- ADAT to LFD
-- Monitor drain outputs through tomorrow, OK to DC if non bilious
-- Trend CMP
-- PRN pain meds/antiemetics
-- Ambulate
-- DVT ppx
Subjective Data
-
Date of Service: October 01, 2023
Clnically improving, pain improved, erick PO, no complaints
Objective Data
-
Intake and Output
09/30/23 10/01/23 10/02/23
06:59 06:59 06:59
Intake Total 1200 / 1200 960 / 960
Output Total 100 / 100
Balance 1200 / 1200 860 / 860
Intake:
Oral fluids 960 / 960
IV fluids (Total) 1200 / 1200 0 / 0
IV piggybacks 0 / 0
Output:
Drain Output (Total) 100 / 100
Right Lower Abdomen Abilio- 100 / 100
[place]
Other:
Number of approximated MODERATE 10 3
amounts of urine
Number of approximated LARGE 1
amounts of urine
Vital Signs
Temp Pulse Resp BP Pulse Ox
98.4 F 51 18 114/65 100
10/01/23 07:00 10/01/23 07:00 10/01/23 07:00 10/01/23 07:00 10/01/23 07:00
Lab Results
10/01/23 05:42
07/03/24 05:42
Calcium 8.6 mg/dl (8.4-10.2) 10/01/23 05:42
Total Bilirubin 4.0 mg/dl (0.2-1.3) H 10/01/23 05:42
Direct Bilirubin 0.2 mg/dl (0.0-0.4) 09/29/23 05:42
AST 571 U/L (17-59) H* 10/01/23 05:42
ALT 590 U/L (0-50) H* 10/01/23 05:42
Alkaline Phosphatase 211 U/L (38-126) H 10/01/23 05:42
Total Protein 5.5 g/dl (6.3-8.2) L 10/01/23 05:42
Albumin 3.1 g/dl (3.5-5.0) L 10/01/23 05:42
Physical Exam
-
Gen: NAD
Abd: soft, approp ttp, incisions cdi, drain with turbid tomlinson fluid
[2023-10-01] MEDS: ROXICODONE 5 MG PO (15:09)
--- NOTE | 2023-10-01 15:10 | CM ---
Case management following for d/c planning
Chart reviewed
s/p laparoscopic cholecystomy - POD 1
Remains on antibiotics
Monitor drain output
CM will follow for d/c needs
Plan - anticipate home no needs vs with VN
[2023-10-01] MEDS: LOVENOX 40 MG SC (18:28)
--- NOTE | 2023-10-01 18:50 | W.PN.HOSP.TC ---
Today's Communication/Plan
-
Status post laparoscopic cholecystectomy with intraoperative cholangiogram on 09/29
Gangrenous cholecystitis
AIDA drain in place
IV antibiotics
Regular diet.
Trend LFTs
Assessment / Plan
Assessment / Plan
Impression:
Patient is a 43y M with PMH significant for esophageal cancer s/p major surgery who presents to ED complaining of abdominal pain, N/V that started this evening.
Right upper quadrant abdominal pain
Concern for acalculous cholecystitis
Liver lesion with concern for metastatic disease
History of esophageal carcinoma status post esophagectomy/gastrectomy
Large hiatal hernia secondary to above
Plan:
Persistent right upper quadrant pain
Exam with right upper quadrant tenderness
Normal LFTs and lipase.
Afebrile with normal WBC
Imaging:
CT scan of the abdomen
1. Gallbladder is mildly dilated, with adjacent inflammatory change. No radiopaque stones are seen. Findings may be related to acute cholecystitis, consider abdominal ultrasound and/or HIDA scan.
2. 4.4 cm mass within the superior portion of the liver, new/increased in size compared to prior study, consistent with hepatic metastasis.
Ultrasound of the abdomen
1. Gallbladder is distended, with gallbladder wall thickening and pericholecystic fluid. Positive Grullon's sign. No stones were demonstrated. Findings are suggestive of acute acalculus cholecystitis in the correct clinical setting.
2. No biliary ductal dilation.
3. Isoechoic lesion with near the hepatic dome, likely corresponding to hepatic metastasis is seen on recent prior CT.
HIDA scan
Patent common bile duct.\\
Nonvisualization of the gallbladder suggesting cystic duct obstruction and possible acute cholecystitis.
Noted bump in LFTs and most likely consistent with acute cholecystitis.
Status post laparoscopic cholecystectomy with intraoperative cholangiogram on 09/[address]
Given findings of gangrene was cholecystitis will continue IV antibiotics
Diet has been advanced to regular
Liver mass with concern for metastatic disease.
Patient was not able to tolerate MRI.
Plan is for outpatient follow-up including PET scan.
Anticipated Discharge: 24 - 48 hours
Subjective/Interval History
-
Date of Service: October 01, 2023
Objective Data
-
Labs:
Laboratory Results
10/01/23
05:42
Sodium 135
Potassium 4.1
Chloride 101
Carbon Dioxide 27
BUN 12
Creatinine 0.7
Glucose 120 H
Calcium 8.6
Total Bilirubin 4.0 H
AST 571 H*
ALT 590 H*
Alkaline Phosphatase 211 H
Vital Signs:
Vital Signs
Temp Pulse Resp BP Pulse Ox
98.5 F 70 16 121/66 93
10/01/23 11:00 10/01/23 11:00 10/01/23 11:00 10/01/23 11:00 10/01/23 11:00
I&O
09/30/23 10/01/23 10/02/23
06:59 06:59 06:59
Intake Total 1200 / 1200 960 / 960 600 / 600
Output Total 100 / 100
Balance 1200 / 1200 860 / 860 600 / 600
Physical Exam
-
General: Well Developed and No Apparent Distress
HEENT: Normocephalic, Atraumatic and Moist Mucous Membranes
Respiratory: Clear to Auscultation
Cardiac: Regular Rhythm and S1/S2; Negative Murmur, Rub or Gallop
GI: Soft, Nontender, Nondistended, Normal Bowel Sounds and Other (Right upper quadrant drain in place); Negative Organomegaly
Rectal: Deferred by Provider
Musculoskeletal: No Clubbing, No Cyanosis and No Edema
Skin: Negative Rash
Neuro: Nonfocal/Grossly Intact
[2023-10-01 23:24] VITALS: BP 121/74
[2023-10-02] MEDS: ZOSYN 50 IV ×2 (00:14→05:55)
[2023-10-02] MEDS: DILAUDID 0.5 MG IV (00:42)
[2023-10-02 05:57] LABS: % Basophils 0.4 % (0-2); % Eosinophils 2.1 % (0-6); % Immature Granulocytes 0.6 % (0-0.5); % Lymphocytes 12.2 % (20.5-51.1); % Neutrophils 75.7 % (42.2-75.2); Absolute Eosinophils 0.1 10^3/uL (0-0.7); Absolute Lymphocytes 0.6 10^3/uL (1.2-3.4); Absolute Monocytes 0.5 10^3/uL (0.1-0.6); Hemoglobin 11.1 g/dL (13.0-18.0); Mean Corp Hgb Conc. 34.7 g/dL (33.0-37.0); Mean Corpuscular Volume 83.6 fL (80.0-94.0); Mean Platelet Volume 10.2 fL (7.4-10.4); Nucleated Red Blood Cells % 0 % (-); Platelet Count 168 10^3/uL (130-400); Red Blood Cell Count 3.83 10^6/uL (4.70-6.10); Red Cell Dist. Width 14.7 % (11.5-14.5); White Blood Cell Count 5.2 10^3/uL (4.8-10.8)
[2023-10-02 06:06] LABS: ALT (SGPT) 464 U/L (0-50); AST (SGOT) 281 U/L (17-59); Alkaline Phosphatase 219 U/L (38-126); Blood Urea Nitrogen 13 mg/dl (9-20); Calcium 8.4 mg/dl (8.4-10.2); Carbon Dioxide 28 mmol/L (22-30); Chloride 100 mmol/L (98-107); Estimated Creatinine Clearance > 125 ml/min; Glucose 96 mg/dl (70-99); Potassium 3.8 mmol/L (3.5-5.1); Sodium 132 mmol/L (135-145); Total Bilirubin 2.8 mg/dl (0.2-1.3); Total Protein 5.5 g/dl (6.3-8.2); eGFR > 60.00
[2023-10-02 07:00] VITALS: BP 127/85
[2023-10-02] MEDS: PROTONIX IV 40 MG IV (08:14)
[2023-10-02] MEDS: NSS (PRESERVATIVE FREE) 10 ML IV (08:15)
--- NOTE | 2023-10-02 10:54 | W.PN.GS2 ---
Addendum entered and electronically signed by Xiang Foley MD 10/02/23 11:27:
pt seen and examined with resident
agree with documented progress note
pt erick low fat diet
post op pain controlled, no nausea
+flatus
AFVSS
ABD: soft, mild incisional tenderness, AIDA with nonbilious light SSF
post op LFTs improving
A/P: POD#2
stable for d/c home
AIDA removed and dressing applied
d/c home on 4 day additional course of Augmentin given severity of cholecystitis
outpt follow up with dr high
Original Note:
Today's Communication / Plan
-
Patient is clinically improving, liver chemistries are trending in the right direction, and AIDA drain was removed.
Assessment / Plan
-
Patient is a 43M who presented with RUQ abdominal pain and is POD2 s/p laparospcopic cholecystectomy with IOC and LCBDE with sphincter dilation.
1. Postoperative Day 2 s/p Lap Adrienne with IOC and LCBDE
-Clinically improving
-AIDA drain was removed.
-Total Bilirubin, AST, ALT all trending down today.
-Patient is okay to be discharged from a surgical standpoint.
Time Spent
Total Time Spent with Patient (in minutes): 15
Subjective Data
-
Date of Service: October 02, 2023
Mr Calvo is a 43M with a PMHx of esophageal cancer s/p distal esophagectomy, total gastrectomy and radiation/chemotherapy who presented 3 days ago for RUQ pain. He is post-op day 2 for cholecystectomy with IOC.
Today the patient reports feeling better from a pain standpoint, only experiencing pain with movement and lying on his right side. He reports the pain is well managed with medications. He denies nausea, vomiting and fevers. He is passing flatus and
voiding urine without difficulty. He states that he has been ambulatory 3x around the unit. In addition, after diet advancement to solid foods, he was able to eat grilled chicken last night without issue.
Objective Data
-
Intake and Output
10/01/23 10/02/23 10/03/23
06:59 06:59 06:59
Intake Total 960 / 960 600 / 600
Output Total 100 / 100 20 / 20
Balance 860 / 860 580 / 580
Intake:
Oral fluids 960 / 960 600 / 600
IV fluids (Total) 0 / 0
IV piggybacks 0 / 0
Output:
Drain Output (Total) 100 / 100 20 /
Right Lower Abdomen Abilio- 100 / 100
[place]
Other:
Number of approximated MODERATE 3 1
amounts of urine
Vital Signs
Temp Pulse Resp BP Pulse Ox
98.0 F 60 16 127/85 95
10/02/23 07:00 10/02/23 07:00 10/02/23 07:00 10/02/23 07:00 10/02/23 07:00
Lab Results
10/02/23 05:23
10/02/23 05:23
Calcium 8.4 mg/dl (8.4-10.2) 10/02/23 05:23
Total Bilirubin 2.8 mg/dl (0.2-1.3) H 10/02/23 05:23
Direct Bilirubin 2.0 mg/dl (0.0-0.4) H 10/02/23 05:23
AST 281 U/L (17-59) H 10/02/23 05:23
ALT 464 U/L (0-50) H 10/02/23 05:23
Alkaline Phosphatase 219 U/L (38-126) H 10/02/23 05:23
Total Protein 5.5 g/dl (6.3-8.2) L 10/02/23 05:23
Albumin 3.0 g/dl (3.5-5.0) L 10/02/23 05:23
Physical Exam
-
Vital signs reviewed.
Constitutional: Patient appears comfortable, speaks full sentences without difficulty. Afebrile.
Respiratory: No increased work of breathing.
CV: Regular rate and rhythm.
Abdomen: Mild tenderness in the RUQ. AIDA drain is in place and draining small amount of serous fluid.
Skin: Skin is warm. Surgical incisions are clean and intact.
--- NOTE | 2023-10-02 11:20 | W.PN.HOSP.TC ---
Today's Communication/Plan
-
dc home
OP PET scan/ONC input
po abx on dc
Assessment / Plan
Assessment / Plan
Impression:
Patient is a 43y M with PMH significant for esophageal cancer s/p major surgery who presents to ED complaining of abdominal pain, N/V that started this evening.
Right upper quadrant abdominal pain
Concern for acalculous cholecystitis
Liver lesion with concern for metastatic disease
History of esophageal carcinoma status post esophagectomy/gastrectomy
Large hiatal hernia secondary to above
Plan:
Persistent right upper quadrant pain
Exam with right upper quadrant tenderness
Normal LFTs and lipase.
Afebrile with normal WBC
Imaging:
CT scan of the abdomen
1. Gallbladder is mildly dilated, with adjacent inflammatory change. No radiopaque stones are seen. Findings may be related to acute cholecystitis, consider abdominal ultrasound and/or HIDA scan.
2. 4.4 cm mass within the superior portion of the liver, new/increased in size compared to prior study, consistent with hepatic metastasis.
Ultrasound of the abdomen
1. Gallbladder is distended, with gallbladder wall thickening and pericholecystic fluid. Positive Grullon's sign. No stones were demonstrated. Findings are suggestive of acute acalculus cholecystitis in the correct clinical setting.
2. No biliary ductal dilation.
3. Isoechoic lesion with near the hepatic dome, likely corresponding to hepatic metastasis is seen on recent prior CT.
HIDA scan
Patent common bile duct.\\
Nonvisualization of the gallbladder suggesting cystic duct obstruction and possible acute cholecystitis.
Noted bump in LFTs and most likely consistent with acute cholecystitis.
Status post laparoscopic cholecystectomy with intraoperative cholangiogram on 09/29
[address] drain in place status post removal earlier today
Given findings of gangrene was cholecystitis will continue IV antibiotics. Transition to p.o. antibiotics on discharge.
Diet has been advanced to regular
Liver mass with concern for metastatic disease.
Patient was not able to tolerate MRI.
Plan is for outpatient follow-up including PET scan.
Outpatient evaluation with PET scan and LFTs
More than 30 minutes spent in discharge including
Final examination of the patient
Summarizing hospital stay
Instructions for continuing care to all relevant caregivers
Preparation of discharge records, prescriptions, and referral forms
Total time spent (in minutes): 52
Anticipated Discharge: Today
Subjective/Interval History
-
Date of Service: October 02, 2023
Denies abdominal pain nausea or vomiting
Tolerating diet
AIDA drain removed
Remains afebrile
Objective Data
-
Labs:
Laboratory Results
10/02/23
05:23
WBC 5.2
Hgb 11.1 L
Hct 32.0 L
Plt Count 168
Sodium 132 L
Potassium 3.8
Chloride 100
Carbon Dioxide 28
BUN 13
Creatinine 0.6 L
Glucose 96
Calcium 8.4
Total Bilirubin 2.8 H
AST 281 H
ALT 464 H
Alkaline Phosphatase 219 H
Vital Signs:
Vital Signs
Temp Pulse Resp BP Pulse Ox
98.0 F 60 16 127/85 95
10/02/23 07:00 10/02/23 07:00 10/02/23 07:00 10/02/23 07:00 10/02/23 07:00
I&O
10/01/23 10/02/23 10/03/23
06:59 06:59 06:59
Intake Total 960 / 960 600 / 600
Output Total 100 / 100 20 / 20
Balance 860 / 860 580 / 580
Physical Exam
-
General: Well Developed and No Apparent Distress
HEENT: Normocephalic, Atraumatic and Moist Mucous Membranes
Respiratory: Clear to Auscultation
Cardiac: Regular Rhythm and S1/S2; Negative Murmur, Rub or Gallop
GI: Soft, Nontender, Nondistended, Normal Bowel Sounds and Other (Surgical incision without any erythema or drainage. AIDA drain removed and at bedside noted); Negative Organomegaly
Rectal: Deferred by Provider
Musculoskeletal: No Clubbing, No Cyanosis and No Edema
Skin: Negative Rash
Neuro: Awake, AO x 3, No Motor Deficits and Nonfocal/Grossly Intact
Psych: Calm
--- NOTE | 2023-10-02 11:24 | W.DCSUMMARY ---
Discharge Summary
Discharge Data
Date of Admission: 09/29/23
Date of Discharge: 10/02/23
-
Pending Results: No
Hospital Course
42 male past medical history of esophageal cancer status post surgery who was presented with nausea vomiting and abdominal pain. Patient underwent ultrasound of the abdomen showed gallbladder is distended with gallbladder wall thickening and
pericholecystic fluid. Positive Grullon sign. No stones were demonstrated. Findings are suggestive of acute acalculous cholecystitis. No biliary ductal dilatation. Patient underwent CT abdomen pelvis which showed Gallbladder is mildly dilated,
with adjacent inflammatory change. No radiopaque stones are seen. Findings may be related to acute cholecystitis, consider abdominal ultrasound and/or HIDA scan.4.4 cm mass within the superior portion of the liver, new/increased in size compared to
prior study, consistent with hepatic metastasis. HIDA scan with Nonvisualization of the gallbladder suggesting cystic duct obstruction and possible acute cholecystitis. Noted bump in LFTs and most likely consistent with acute cholecystitis. General
surgery evaluated patient and patient underwent laparoscopic cholecystectomy with intraoperative cholangiogram on 09/29. Operative finding of gangrenous cholecystitis. IV Zosyn was continued and transition to p.o. Augmentin on discharge. IADA drain
was placed and subsequently was removed on day of discharge. Patient was tolerating diet. LFTs down trended. Liver mass was noted and recommended outpatient evaluation with oncology with PET/CT scan. Patient agreed and verbalized understanding.
Patient will follow-up outpatient with oncology and general surgery.
Discharge Plan
-
Patient Disposition: Home (Routine Discharge)
Discharge Diagnosis/Procedures: Acalculus cholecystitis status post laparoscopic cholecystectomy status post intraoperative cholangiogram and laparoscopic common bile duct exploration
Liver lesion
Transaminitis
Condition: Fair
Diet: Regular
Additional Diets: If issues with bloating and diarrhea follow a low fat diet
Activity: No strenuous activity
Additional Activity: No heavy lifting (>20 lbs) for 2 weeks post-operatively
Driving Restrictions: No driving if too sore or taking narcotics
Bathing Restrictions: OK to Shower
Wound Care: Keep incisions clean and dry. Glue will flake off in 2-3 weeks. Stitches will dissolve. Use ice to the abdomen for 48-72 hrs post-op.
Activity Restrictions/Additional Instructions:
Call for fevers (>100.5), nausea or vomiting, worsening abdominal pain
CT abdomen/pelvis with 4.4 cm mass within the superior portion of the liver, new/increased in size compared to prior study, consistent with hepatic metastasis. Recommend follow up with your oncologist for PET/CT or MRI abdomen.
Referrals:
Aldair Estrada MD [Active] - in two to four weeks
Kane Casper MD [Family Provider] - in less than 1 week
Prescriptions:
New
amoxicillin-pot clavulanate 875-125 mg tablet
1 tab PO Q12 Qty: 8 0RF
acetaminophen 325 mg Tablet
650 mg PO Q4HPRN PRN (Reason: Mild Pain / Temp > 101) 7 Days Qty: 15 0RF
Discharge Orders:
Discharge Patient (As Directed); Ordered 10/02/23
Ordered By: German Schwarz
Discharge Date and Time
Discharge Date/Time: 10/02/23 12:20
Print Language: TURKISH
== END 2023-10-02 12:20 | disposition home or self-care (01) ==
LOC: 3 WEST ACU 03:03
PROVIDERS: Internal Medicine; ADMITTING PHYSICIAN Hospitalist; ATTENDING PHYSICIAN Hospitalist; CONSULT PHYSICIAN Internal Medicine Hematology & Oncology; CONSULT PHYSICIAN Surgery; EMERGENCY PHYSICIAN Student in an Organized Health Care Education/Training Program; FAMILY PHYSICIAN Family Medicine
DX: K80.00 Calculus of gallbladder with acute cholecystitis without obstruction (principal); K82.A1 Gangrene of gallbladder in cholecystitis; R11.2 Nausea with vomiting, unspecified; R10.9 Unspecified abdominal pain; K76.9 Liver disease, unspecified; K44.9 Diaphragmatic hernia without obstruction or gangrene; F17.200 Nicotine dependence, unspecified, uncomplicated; Z92.3 Personal history of irradiation; K82.8 Other specified diseases of gallbladder; Z80.3 Family history of malignant neoplasm of breast; Z80.8 Family history of malignant neoplasm of other organs or systems; Z85.01 Personal history of malignant neoplasm of esophagus; Z90.49 Acquired absence of other specified parts of digestive tract
CPT/HCPCS: 47564; 74300; 88304; 74177; 76000; 76700; 78226; 80053; 81003; 82077; 82248; 83605; 83690; 85025; 85027; 85610; 85730; 88341; 88342; 93005; 96374; 96375; 99285; A9537; J1610; Q9967

== ENCOUNTER 2024-02-02 09:24 | Emergency (ER) | payer SELFPAY ==
[2024-02-02 09:29] VITALS: BP 127/84
--- NOTE | 2024-02-02 09:41 | ED.GENMED ---
History of Present Illness
General
Chief Complaint: Musculo-Skeletal Complaint
Time Seen by Provider: 02/02/24 09:38
History of Present Illness
History of Present Illness:
TIME OF INITIAL ENCOUNTER: 9:40 AM
HPI: Patient presents with abrupt onset right sided pain along the mid axillary line of the lower chest. The pain worsens with a deep breath. He has a history of stomach cancer and states he has had a gastrectomy. In September 2023, he had a
gangrenous gallbladder/cholecystectomy.
EXAM:
GENERAL: Well appearing but in mild to moderate intermittent distress
HEENT: Moist oral mucosa
CARDIOVASCULAR: No murmurs, normal heart rate, regular rhythm, point chest wall tenderness in the lower right mid axillary line
PULMONARY: No respiratory distress, breath sounds are clear and equal
ABDOMEN: Soft with no peritoneal signs, no tenderness
NEUROLOGIC: Excellent strength all extremities, no coordination deficits
PSYCHIATRIC: Appropriate mental status, normal insight and judgement
EXTREMITIES: Nontender, no edema, moves all extremities equally
SKIN: No rash, no lesions
NUMBER AND COMPLEXITY OF PROBLEMS ADDRESSED AT THE ENCOUNTER
� Chronic conditions affecting care: Cancer of stomach/esophagus status post gastrectomy and partial esophagectomy
� Acute Exacerbation and/or Progression of Chronic Illness: This is an acute problem
� Differential Diagnosis includes: Musculoskeletal chest wall pain, pleurisy, chest wall strain, postop complication less likely as there is no significant right upper quadrant tenderness, PE, pneumothorax
AMOUNT AND/OR COMPLEXITY OF DATA TO BE REVIEWED AND ANALYZED
� I performed an independent evaluation of and my interpretation is:
EKG:
CT: Although there is no evidence for PE, large lesions are noted in the liver that appear worse compared to prior study of August 2023
X-rays:
Laboratory Studies: White blood cell count and hemoglobin are normal, transaminases continue to improve, chronic elevation of alk phos
Other:
� Review of other/old records: I reviewed operative report by Dr. Estrada from this past September
� Clinical information was obtained by an independent historian: I spoke to his guardian at bedside
� Prescriptions/Medications Considered but not given:
� Further testing considered but not performed:
RISK OF COMPLICATIONS AND/OR MORBIDITY OR MORTALITY OF PATIENT MANAGEMENT
� Social determinants of health affecting care: Lives at home, guardian is at place
� Discussion with other providers: Discussed case with radiologist as CT is abnormal
� Escalation of care including admission/observation vs risk of discharge considered: Patient has abrupt onset pleuritic pain. He does have somewhat of a complex medical history. Will try Toradol.
ANY OTHER UPDATES:
12 PM: The patient was given Toradol earlier. D-dimer is elevated. Will CTA chest. The pain appears to be more into the chest as opposed abdomen. Alk phos is chronically elevated.
2:30 PM: I reassessed the patient. There has been some improvement after Toradol was given.
2:45 PM: Given the abnormality seen on the liver, I sent message to oncology, Dr. Weiss to help arrange close outpatient follow-up.
Past History
Past History
ED Past Medical History: Cancer (Distal esophagus and gastric with partial esophagectomy and gastrectomy in March 2021) and Other (gastritis)
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
Social History
Tobacco: Former smoker
Alcohol: Occasional
Personal: Single
Living: with family
Employment: Employed
Phy Exam
Physical Exam
Physical Exam:
See HPI
Course
Orders/Labs/Results
Orders:
Orders
02/02/24 09:50
Ketorolac [Toradol] 15 mg IV NOW STA
CR Chest - 2 Views Urgent
Comment:
Reason For Exam: pleuritic R CP
02/02/24 09:58
Complete Blood Count/With Diff Urgent
Comprehensive Metabolic Panel Urgent
D-Dimer Urgent
02/02/24 12:03
CT Chest Pe Study Urgent
Comment:
Reason For Exam: R pleuritic pain; high ddimer
Abnormal Lab Results
02/02/24
09:58
RBC 4.31 L 10^6/uL
(4.70-6.10)
Hgb 12.3 L g/dL
(13.0-18.0)
Hct 36.6 L %
(39.0-52.0)
RDW 14.7 H %
(11.5-14.5)
Absolute Lymphs (auto) 0.8 L 10^3/uL
(1.2-3.4)
Immature Gran % 0.6 H %
(0-0.5)
Neutrophils % 79.4 H %
(42.2-75.2)
Lymphocytes % 11.7 L %
(20.5-51.1)
D-Dimer 1.12 H ug/mlFEU
(0.00-0.50)
Chloride 96 L mmol/L
(98-107)
Creatinine 0.6 L mg/dL
(0.7-1.3)
Glucose 123 H mg/dl
(70-99)
AST 115 H U/L
(17-59)
ALT 67 H U/L
(0-50)
Alkaline Phosphatase 237 H U/L
(38-126)
02/02/24 09:58
02/02/24 09:58
Vital Signs
Initial and Last Documented VS:
Initial Vital Signs
Temp Pulse Resp BP Pulse Ox
97.6 F 77 16 127/84 100
02/02/24 09:29 02/02/24 09:29 02/02/24 09:29 02/02/24 09:29 02/02/24 09:29
Last Documented Vital Signs
Temp Pulse Resp BP Pulse Ox
97.6 F 50 18 129/83 99
02/02/24 09:29 02/02/24 12:51 02/02/24 12:51 02/02/24 11:00 02/02/24 12:51
*Critical Care Note
Total Time (30-74mins, 75-104mins- exclusive of procedures): Not Applicable
ED Attending Note
-
Portions of this chart may have been created with voice recognition software.� Occasional wrong word or��sound alike� substitutions may have occurred due to the inherent limitations of voice recognition software.
Discharge Plan
Departure
Prescriptions:
No Action
amoxicillin-pot clavulanate 875-125 mg tablet
1 tab PO Q12 Qty: 8 0RF
acetaminophen 325 mg Tablet
650 mg PO Q4HPRN PRN (Reason: Mild Pain / Temp > 101) 7 Days Qty: 15 0RF
Referrals:
Kane Casper MD [Family Provider] -
Interventions
Interventions:
*Risk Screen - Suicide Last Done: 02/02/24 09:33
*General Assessment Last Done: 02/02/24 10:01
*Neglect/Abuse Screening Last Done: 02/02/24 09:33
ED- Fall Risk Assessment Last Done: 02/02/24 10:01
*ED COVID-19 Vaccine History Last Done: 02/02/24 10:01
ED-Musculoskeletal Assessment Last Done: 02/02/24 10:01
Discharge Date and Time
Print Language: BOTSWANAN
[2024-02-02 09:54] VITALS: BMI 27.1
[2024-02-02] MEDS: TORADOL 15 MG IV (09:58)
[2024-02-02 10:08] LABS: % Basophils 0.4 % (0-2); % Eosinophils 1.3 % (0-6); % Immature Granulocytes 0.6 % (0-0.5); % Lymphocytes 11.7 % (20.5-51.1); % Monocytes 6.6 % (1.7-9.3); % Neutrophils 79.4 % (42.2-75.2); Absolute Eosinophils 0.1 10^3/uL (0-0.7); Absolute Lymphocytes 0.8 10^3/uL (1.2-3.4); Absolute Monocytes 0.5 10^3/uL (0.1-0.6); Absolute Neutrophils 5.6 10^3/uL (1.4-6.5); Hematocrit 36.6 % (39.0-52.0); Hemoglobin 12.3 g/dL (13.0-18.0); Mean Corp Hgb Conc. 33.6 g/dL (33.0-37.0); Mean Corpuscular Hgb 28.5 pg (27.0-31.0); Mean Corpuscular Volume 84.9 fL (80.0-94.0); Mean Platelet Volume 9.5 fL (7.4-10.4); Nucleated Red Blood Cells % 0 % (-); Platelet Count 314 10^3/uL (130-400); Red Blood Cell Count 4.31 10^6/uL (4.70-6.10); Red Cell Dist. Width 14.7 % (11.5-14.5)
[2024-02-02 10:20] LABS: ALT (SGPT) 67 U/L (0-50); AST (SGOT) 115 U/L (17-59); Albumin 3.9 g/dl (3.5-5.0); Alkaline Phosphatase 237 U/L (38-126); Blood Urea Nitrogen 12 mg/dl (9-20); Calcium 9.5 mg/dl (8.4-10.2); Carbon Dioxide 30 mmol/L (22-30); Chloride 96 mmol/L (98-107); Estimated Creatinine Clearance > 125 ml/min; Glucose 123 mg/dl (70-99); Potassium 4.3 mmol/L (3.5-5.1); Sodium 137 mmol/L (135-145); Total Bilirubin 0.6 mg/dl (0.2-1.3); Total Protein 6.5 g/dl (6.3-8.2); eGFR > 60.00
[2024-02-02 10:27] LABS: D-Dimer 1.12 ug/mlFEU (0.00-0.50)
[2024-02-02 11:00] VITALS: BP 129/83
[2024-02-02 12:50] VITALS: BP 110/75
[2024-02-02 13:00] VITALS: BP 113/79
[2024-02-02 15:01] VITALS: BP 118/78
== END 2024-02-02 15:02 | disposition home or self-care (01) ==
LOC: EMR 09:24
PROVIDERS: EMERGENCY PHYSICIAN Emergency Medicine; FAMILY PHYSICIAN Family Medicine
DX: R07.89 Other chest pain (principal); R79.1 Abnormal coagulation profile; Z85.028 Personal history of other malignant neoplasm of stomach; Z87.19 Personal history of other diseases of the digestive system; Z90.3 Acquired absence of stomach [part of]; Z87.891 Personal history of nicotine dependence
CPT/HCPCS: 96374; 99284; 71046; 71275; 80053; 85025; 85379; Q9967

== ENCOUNTER 2024-02-23 09:14 | Emergency (ER) | payer OTHER, SELFPAY ==
[2024-02-23 09:16] VITALS: BP 113/80
--- NOTE | 2024-02-23 10:30 | ED.GENMED ---
History of Present Illness
General
Chief Complaint: Weakness
Source: patient
Exam Limitations: none
Time Seen by Provider: 02/23/24 10:13
History of Present Illness
History of Present Illness:
44-year-old male with history of esophageal cancer requiring partial esophagectomy with total gastrectomy and reanastomosis presents with complaints of general fatigue shortness of breath and now loss of voice. He was here 3 weeks ago for shortness
of breath. He had a CT angio of his at that time which was negative for PE but did demonstrate enlarging lesions of the liver. He has been touch with his oncologist, Dr. Reeder. He has a plan for an MRI PET scan and potential port placement if it
warrants chemotherapy. He is waiting for these items to happen as an outpatient but notes worsening fatigue and dysphagia. He is having trouble swallowing foods because of this.
Past History
Past History
ED Past Medical History: Cancer (Distal esophagus and gastric with partial esophagectomy and gastrectomy in March 2021) and Other (gastritis)
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
Social History
Tobacco: Former smoker
Alcohol: Occasional
Personal: Single
Living: with family
Employment: Employed
Phy Exam
Physical Exam
Physical Exam:
General: Well-appearing male no acute respiratory distress
HEENT: Normocephalic atraumatic posterior pharynx without erythema neck is supple no stridor trismus or drooling
Heart: Regular rate and rhythm
Lungs: Clear no wheeze
Abdomen is soft nontender nondistended no guarding rebound normal bowel sounds
Extremities: No cyanosis
Course
Orders/Labs/Results
Orders:
Orders
02/23/24 10:27
CT Neck With Iv Contrast Urgent
Comment:
Reason For Exam: dyspagia, loss of voice, history of CA
0.9% Sodium Chloride 1000 ml [Nss] 1,000 ml IV BOLUS
02/23/24 10:33
Complete Blood Count/With Diff Urgent
Comprehensive Metabolic Panel Urgent
Lipase Urgent
Abnormal Lab Results
02/23/24
10:33
RBC 4.38 L 10^6/uL
(4.70-6.10)
Hgb 12.0 L g/dL
(13.0-18.0)
Hct 37.3 L %
(39.0-52.0)
MCHC 32.2 L g/dL
(33.0-37.0)
RDW 14.6 H %
(11.5-14.5)
Absolute Lymphs (auto) 0.8 L 10^3/uL
(1.2-3.4)
Neutrophils % 78.7 H %
(42.2-75.2)
Lymphocytes % 12.5 L %
(20.5-51.1)
Chloride 95 L mmol/L
(98-107)
AST 112 H U/L
(17-59)
ALT 93 H U/L
(0-50)
Alkaline Phosphatase 509 H U/L
(38-126)
02/23/24 10:33
02/23/24 10:33
Vital Signs
Initial and Last Documented VS:
Initial Vital Signs
Temp Pulse Resp BP Pulse Ox
97.9 F 92 16 113/80 98
02/23/24 09:16 02/23/24 09:16 02/23/24 09:16 02/23/24 09:16 02/23/24 09:16
Last Documented Vital Signs
Temp Pulse Resp BP Pulse Ox
97.9 F 92 16 118/82 97
02/23/24 09:16 02/23/24 09:16 02/23/24 09:16 02/23/24 13:00 02/23/24 13:31
MDM/Problems Addressed
Differential Diagnosis Includes:
Difficulty swallowing and breathing with fatigue and known history of esophageal cancer. Reviewed records from 3 weeks ago which demonstrated a PE study was negative for PE but demonstrated enlarging liver lesions. Concern for involvement of the
pharynx. Patient does have a loss of voice on exam. Will check labs hydrate and do CT of the neck with IV contrast.
*Critical Care Note
Total Time (30-74mins, 75-104mins- exclusive of procedures): Not Applicable
Update Note
Update Note:
CT of neck demonstrates 16 mm soft tissue lesion within the superior mediastinum which abuts and is inseparable from the proximal esophagus likely ilana metastasis. It may exert some mass effect on the esophagus. I suspect patient's symptoms may
be related to this and worsening neoplastic process. He is tolerating oral fluids. He is able to eat soft foods. No electrolyte abnormalities on workup. Vital signs are stable. No indication for admission but will recommend close follow-up with
his oncologist.
ED Attending Note
-
Portions of this chart may have been created with voice recognition software.� Occasional wrong word or��sound alike� substitutions may have occurred due to the inherent limitations of voice recognition software.
Discharge Plan
Departure
Patient Disposition: Home (Routine Discharge)
Date of Disposition: 02/23/24
Time of Disposition: 13:47
Patient with high blood pressure during this ER visit?: No
Discharge Problem:
Dysphagia
Instructions: Generalized Weakness (DC)
Prescriptions:
No Action
amoxicillin-pot clavulanate 875-125 mg tablet
1 tab PO Q12 Qty: 8 0RF
acetaminophen 325 mg Tablet
650 mg PO Q4HPRN PRN (Reason: Mild Pain / Temp > 101) 7 Days Qty: 15 0RF
Referrals:
Kane Casper MD [Family Provider] -
Activity Restrictions/Additional Instructions:
Please follow-up as soon as possible with your oncology team. Continue drinking plenty clear liquids and soft foods. Return if needed otherwise
Interventions
Interventions:
*Risk Screen - Suicide Last Done: 02/23/24 09:16
*Neglect/Abuse Screening Last Done: 02/23/24 09:16
ED- Fall Risk Assessment Last Done: 02/23/24 10:35
*ED COVID-19 Vaccine History Last Done: 02/23/24 10:35
ED- Cardiac Assessment Last Done: 02/23/24 10:35
ED- Neurological Assessment Last Done: 02/23/24 10:35
ED- Pulmonary Assessment Last Done: 02/23/24 10:35
Discharge Date and Time
Print Language: SWISS
[2024-02-23] MEDS: NSS 1000 IV (10:38)
[2024-02-23 10:39] LABS: % Basophils 0.3 % (0-2); % Eosinophils 0.6 % (0-6); % Immature Granulocytes 0.5 % (0-0.5); % Lymphocytes 12.5 % (20.5-51.1); % Monocytes 7.4 % (1.7-9.3); % Neutrophils 78.7 % (42.2-75.2); Absolute Lymphocytes 0.8 10^3/uL (1.2-3.4); Absolute Monocytes 0.5 10^3/uL (0.1-0.6); Absolute Neutrophils 5.1 10^3/uL (1.4-6.5); Hematocrit 37.3 % (39.0-52.0); Mean Corp Hgb Conc. 32.2 g/dL (33.0-37.0); Mean Corpuscular Hgb 27.4 pg (27.0-31.0); Mean Corpuscular Volume 85.2 fL (80.0-94.0); Mean Platelet Volume 9.4 fL (7.4-10.4); Nucleated Red Blood Cells % 0 % (-); Platelet Count 346 10^3/uL (130-400); Red Blood Cell Count 4.38 10^6/uL (4.70-6.10); Red Cell Dist. Width 14.6 % (11.5-14.5); White Blood Cell Count 6.5 10^3/uL (4.8-10.8)
[2024-02-23 10:54] VITALS: BP 112/72
[2024-02-23 11:00] VITALS: BP 120/76
[2024-02-23 11:02] LABS: ALT (SGPT) 93 U/L (0-50); AST (SGOT) 112 U/L (17-59); Albumin 4.2 g/dl (3.5-5.0); Alkaline Phosphatase 509 U/L (38-126); Blood Urea Nitrogen 18 mg/dl (9-20); Calcium 9.7 mg/dl (8.4-10.2); Carbon Dioxide 24 mmol/L (22-30); Chloride 95 mmol/L (98-107); Glucose 88 mg/dl (70-99); Lipase 34 U/L (23-300); Potassium 4.6 mmol/L (3.5-5.1); Sodium 135 mmol/L (135-145); Total Bilirubin 1.1 mg/dl (0.2-1.3); Total Protein 6.9 g/dl (6.3-8.2); eGFR > 60.00
[2024-02-23 12:31] VITALS: BP 123/79
[2024-02-23 13:00] VITALS: BP 118/82
== END 2024-02-23 14:17 | disposition home or self-care (01) ==
LOC: EMR 09:14
PROVIDERS: Physician Assistant; EMERGENCY PHYSICIAN Emergency Medicine; FAMILY PHYSICIAN Family Medicine
DX: R13.10 Dysphagia, unspecified (principal); Z87.891 Personal history of nicotine dependence; Z85.01 Personal history of malignant neoplasm of esophagus
CPT/HCPCS: 99285; 96360; 70491; 80053; 83690; 85025; Q9967

== ENCOUNTER → 2024-03-05 09:44 | Outpatient (REF) | payer MEDICAID, SELFPAY | LOC: RCS 09:44 | PROVIDERS: ATTENDING PHYSICIAN Internal Medicine Hematology & Oncology; FAMILY PHYSICIAN Family Medicine | DX: C15.5 Malignant neoplasm of lower third of esophagus (principal); C78.7 Secondary malignant neoplasm of liver and intrahepatic bile duct; D50.9 Iron deficiency anemia, unspecified | CPT/HCPCS: 93306; 93356 ==

== ENCOUNTER → 2024-03-09 15:59 | Outpatient (REF) | payer MEDICAID, SELFPAY ==
[2024-03-09 11:29] LABS: % Basophils 0.3 % (0-2); % Eosinophils 1.9 % (0-6); % Immature Granulocytes 0.3 % (0-0.5); % Lymphocytes 13.2 % (20.5-51.1); % Monocytes 6.9 % (1.7-9.3); % Neutrophils 77.4 % (42.2-75.2); Absolute Eosinophils 0.1 10^3/uL (0-0.7); Absolute Lymphocytes 0.8 10^3/uL (1.2-3.4); Absolute Monocytes 0.4 10^3/uL (0.1-0.6); Absolute Neutrophils 4.5 10^3/uL (1.4-6.5); Hematocrit 36.9 % (39.0-52.0); Hemoglobin 11.9 g/dL (13.0-18.0); Mean Corp Hgb Conc. 32.2 g/dL (33.0-37.0); Mean Corpuscular Hgb 28.3 pg (27.0-31.0); Mean Corpuscular Volume 87.9 fL (80.0-94.0); Mean Platelet Volume 9.4 fL (7.4-10.4); Platelet Count 421 10^3/uL (130-400); White Blood Cell Count 5.8 10^3/uL (4.8-10.8)
[2024-03-09 13:26] LABS: ALT (SGPT) 72 U/L (0-50); AST (SGOT) 115 U/L (17-59); Alkaline Phosphatase 518 U/L (38-126); Blood Urea Nitrogen 16 mg/dl (9-20); Calcium 9.7 mg/dl (8.4-10.2); Carbon Dioxide 23 mmol/L (22-30); Chloride 101 mmol/L (98-107); Glucose 240 mg/dl (70-99); Sodium 139 mmol/L (135-145); Total Bilirubin 0.7 mg/dl (0.2-1.3); Total Protein 6.6 g/dl (6.3-8.2); eGFR > 60.00
== END ==
LOC: OIDL 15:59
PROVIDERS: ATTENDING PHYSICIAN Internal Medicine Hematology & Oncology
DX: C15.5 Malignant neoplasm of lower third of esophagus (principal)
CPT/HCPCS: 80053; 85025

== ENCOUNTER → 2024-03-25 15:06 | Outpatient (REF) | payer OTHER, SELFPAY ==
[2024-03-25 16:02] LABS: ALT (SGPT) 49 U/L (0-50); AST (SGOT) 85 U/L (17-59); Albumin 4.1 g/dl (3.5-5.0); Alkaline Phosphatase 313 U/L (38-126); Blood Urea Nitrogen 12 mg/dl (9-20); Calcium 9.5 mg/dl (8.4-10.2); Carbon Dioxide 24 mmol/L (22-30); Chloride 98 mmol/L (98-107); Glucose 302 mg/dl (70-99); Potassium 4.9 mmol/L (3.5-5.1); Sodium 134 mmol/L (135-145); Total Bilirubin 0.5 mg/dl (0.2-1.3); Total Protein 6.8 g/dl (6.3-8.2); eGFR > 60.00
[2024-03-25 16:18] LABS: Absolute Neutrophils -Man Diff 0.3 10^3/uL (1.4-6.5); Band Neutrophils 1 % (0-3); Hematocrit 36.3 % (39.0-52.0); Hemoglobin 11.6 g/dL (13.0-18.0); Mean Corpuscular Hgb 28.4 pg (27.0-31.0); Mean Corpuscular Volume 88.8 fL (80.0-94.0); Platelet Count 584 10^3/uL (130-400); Red Blood Cell Count 4.09 10^6/uL (4.70-6.10); Red Cell Dist. Width 16.4 % (11.5-14.5); Segmented Neutrophils 19 % (42-75); White Blood Cell Count 1.7 10^3/uL (4.8-10.8)
[2024-03-25 16:19] LABS: Eosinophils 8 % (0-6); Lymphocytes 48 % (20-51); Monocytes 24 % (2-9); Normal RBC Morphology Yes; Platelets Checked Yes; Total Cells Counted 100
== END ==
LOC: REG 15:06
PROVIDERS: ATTENDING PHYSICIAN Internal Medicine Hematology & Oncology; FAMILY PHYSICIAN Family Medicine
DX: C15.5 Malignant neoplasm of lower third of esophagus (principal); C78.7 Secondary malignant neoplasm of liver and intrahepatic bile duct; D50.9 Iron deficiency anemia, unspecified
CPT/HCPCS: 36415; 80053; 85025

== ENCOUNTER → 2024-03-29 13:26 | Outpatient (REF) | payer OTHER, SELFPAY ==
[2024-03-29 09:15] LABS: % Basophils 0.2 % (0-2); % Eosinophils 1.2 % (0-6); % Immature Granulocytes 0.6 % (0-0.5); % Lymphocytes 12.7 % (20.5-51.1); % Monocytes 11.9 % (1.7-9.3); % Neutrophils 73.4 % (42.2-75.2); Absolute Eosinophils 0.1 10^3/uL (0-0.7); Absolute Lymphocytes 0.6 10^3/uL (1.2-3.4); Absolute Monocytes 0.6 10^3/uL (0.1-0.6); Absolute Neutrophils 3.7 10^3/uL (1.4-6.5); Hematocrit 31.3 % (39.0-52.0); Hemoglobin 10.3 g/dL (13.0-18.0); Mean Corp Hgb Conc. 32.9 g/dL (33.0-37.0); Mean Corpuscular Hgb 28.5 pg (27.0-31.0); Mean Corpuscular Volume 86.5 fL (80.0-94.0); Platelet Count 619 10^3/uL (130-400); Red Blood Cell Count 3.62 10^6/uL (4.70-6.10); Red Cell Dist. Width 16.1 % (11.5-14.5)
[2024-03-29 10:13] LABS: ALT (SGPT) 41 U/L (0-50); AST (SGOT) 71 U/L (17-59); Albumin 3.7 g/dl (3.5-5.0); Alkaline Phosphatase 277 U/L (38-126); Blood Urea Nitrogen 16 mg/dl (9-20); Calcium 9.2 mg/dl (8.4-10.2); Carbon Dioxide 23 mmol/L (22-30); Chloride 94 mmol/L (98-107); Glucose 358 mg/dl (70-99); Potassium 4.9 mmol/L (3.5-5.1); Sodium 132 mmol/L (135-145); Total Bilirubin 0.6 mg/dl (0.2-1.3); Total Protein 6.5 g/dl (6.3-8.2); eGFR > 60.00
== END ==
LOC: OIDL 13:26
PROVIDERS: ATTENDING PHYSICIAN Internal Medicine Hematology & Oncology
DX: C15.5 Malignant neoplasm of lower third of esophagus (principal)
CPT/HCPCS: 80053; 85025

== ENCOUNTER → 2024-04-16 09:04 | Outpatient (REF) | payer MEDICAID, SELFPAY ==
[2024-04-16 09:41] LABS: % Basophils 1.2 % (0-2); % Eosinophils 3.6 % (0-6); % Lymphocytes 10.3 % (20.5-51.1); % Monocytes 7.9 % (1.7-9.3); Absolute Basophils 0.1 10^3/uL (0-0.2); Absolute Eosinophils 0.4 10^3/uL (0-0.7); Absolute Immature Granulocytes 0.4 10^3/uL (0-0.05); Absolute Monocytes 0.8 10^3/uL (0.1-0.6); Absolute Neutrophils 7.4 10^3/uL (1.4-6.5); Hematocrit 32.1 % (39.0-52.0); Hemoglobin 10.2 g/dL (13.0-18.0); Mean Corp Hgb Conc. 31.8 g/dL (33.0-37.0); Mean Corpuscular Hgb 28.7 pg (27.0-31.0); Mean Corpuscular Volume 90.4 fL (80.0-94.0); Mean Platelet Volume 9.3 fL (7.4-10.4); Nucleated Red Blood Cells % 0 % (-); Platelet Count 533 10^3/uL (130-400); Red Blood Cell Count 3.55 10^6/uL (4.70-6.10); Red Cell Dist. Width 19.3 % (11.5-14.5); White Blood Cell Count 10.1 10^3/uL (4.8-10.8)
[2024-04-16 10:04] LABS: ALT (SGPT) 32 U/L (0-50); AST (SGOT) 48 U/L (17-59); Albumin 3.8 g/dl (3.5-5.0); Alkaline Phosphatase 245 U/L (38-126); Blood Urea Nitrogen 16 mg/dl (9-20); Calcium 9.6 mg/dl (8.4-10.2); Carbon Dioxide 31 mmol/L (22-30); Chloride 97 mmol/L (98-107); Glucose 85 mg/dl (70-99); Potassium 5.1 mmol/L (3.5-5.1); Sodium 135 mmol/L (135-145); Total Bilirubin 0.4 mg/dl (0.2-1.3); Total Protein 6.4 g/dl (6.3-8.2); eGFR > 60.00
[2024-04-16 10:10] VITALS: BP 104/67; BP_SYST 66
== END ==
LOC: RADI 09:04
PROVIDERS: ATTENDING PHYSICIAN Internal Medicine Hematology & Oncology; FAMILY PHYSICIAN Family Medicine
DX: C15.5 Malignant neoplasm of lower third of esophagus (principal)
CPT/HCPCS: 36415; 36561; 76937; 77001; 80053; 85025; 99152; 99153; C1788

== ENCOUNTER → 2024-04-23 16:01 | Outpatient (REF) | payer OTHER, SELFPAY | LOC: RAD 16:01 | PROVIDERS: ATTENDING PHYSICIAN Nurse Practitioner Adult Health; PRIMARYCARE PHYSICIAN Family Medicine | DX: C15.5 Malignant neoplasm of lower third of esophagus (principal) | CPT/HCPCS: 71260; 74177; Q9967 ==

== ENCOUNTER → 2024-04-26 08:31 | Outpatient (REF) | payer OTHER, SELFPAY | LOC: RAD 08:31 | PROVIDERS: ATTENDING PHYSICIAN Nurse Practitioner Adult Health; FAMILY PHYSICIAN Family Medicine; OTHER PHYSICIAN Internal Medicine Hematology & Oncology | DX: C15.5 Malignant neoplasm of lower third of esophagus (principal); C78.7 Secondary malignant neoplasm of liver and intrahepatic bile duct; D50.9 Iron deficiency anemia, unspecified; D70.1 Agranulocytosis secondary to cancer chemotherapy | CPT/HCPCS: 78306; A9503 ==

== ENCOUNTER → 2024-05-04 08:52 | Outpatient (REF) | payer OTHER, SELFPAY ==
[2024-05-04 09:25] LABS: % Basophils 1.2 % (0-2); % Eosinophils 4.6 % (0-6); % Lymphocytes 10.2 % (20.5-51.1); % Monocytes 6.5 % (1.7-9.3); % Neutrophils 75.5 % (42.2-75.2); Absolute Basophils 0.1 10^3/uL (0-0.2); Absolute Eosinophils 0.4 10^3/uL (0-0.7); Absolute Immature Granulocytes 0.2 10^3/uL (0-0.05); Absolute Monocytes 0.6 10^3/uL (0.1-0.6); Absolute Neutrophils 7.3 10^3/uL (1.4-6.5); Hematocrit 29.8 % (39.0-52.0); Hemoglobin 9.7 g/dL (13.0-18.0); Mean Corp Hgb Conc. 32.6 g/dL (33.0-37.0); Mean Corpuscular Hgb 29.1 pg (27.0-31.0); Mean Corpuscular Volume 89.5 fL (80.0-94.0); Mean Platelet Volume 9.7 fL (7.4-10.4); Nucleated Red Blood Cells % 0.3 % (-); Platelet Count 434 10^3/uL (130-400); Red Blood Cell Count 3.33 10^6/uL (4.70-6.10); Red Cell Dist. Width 21.1 % (11.5-14.5); White Blood Cell Count 9.6 10^3/uL (4.8-10.8)
[2024-05-04 10:26] LABS: ALT (SGPT) 28 U/L (0-50); AST (SGOT) 34 U/L (17-59); Albumin 4.3 g/dl (3.5-5.0); Alkaline Phosphatase 192 U/L (38-126); Blood Urea Nitrogen 10 mg/dl (9-20); Calcium 9.1 mg/dl (8.4-10.2); Carbon Dioxide 24 mmol/L (22-30); Chloride 103 mmol/L (98-107); Glucose 70 mg/dl (70-99); Potassium 5.3 mmol/L (3.5-5.1); Sodium 139 mmol/L (135-145); Total Bilirubin 0.4 mg/dl (0.2-1.3); Total Protein 6.8 g/dl (6.3-8.2); eGFR > 60.00
[2024-05-04 10:53] LABS: TSH 2.51 uIU/ml (0.47-4.68)
== END ==
LOC: REG 08:52
PROVIDERS: ATTENDING PHYSICIAN Internal Medicine Hematology & Oncology; FAMILY PHYSICIAN Family Medicine
DX: C15.5 Malignant neoplasm of lower third of esophagus (principal); C78.7 Secondary malignant neoplasm of liver and intrahepatic bile duct; D50.9 Iron deficiency anemia, unspecified; D70.1 Agranulocytosis secondary to cancer chemotherapy
CPT/HCPCS: 36415; 80053; 82533; 84443; 85025

== ENCOUNTER 2024-05-06 06:18 | Day surgery (SDC) | payer OTHER, SELFPAY | END 2024-05-06 15:14 | disposition home or self-care (01) | LOC: GI 06:18 | PROVIDERS: ATTENDING PHYSICIAN Internal Medicine Gastroenterology; FAMILY PHYSICIAN Family Medicine | DX: R13.10 Dysphagia, unspecified (principal); C15.5 Malignant neoplasm of lower third of esophagus; R63.4 Abnormal weight loss; K63.89 Other specified diseases of intestine; Z98.890 Other specified postprocedural states; D49.0 Neoplasm of unspecified behavior of digestive system; Z90.49 Acquired absence of other specified parts of digestive tract | CPT/HCPCS: 43239; 88305; 88341; 88342; 88360 ==

== ENCOUNTER → 2024-05-10 13:18 | Outpatient (REF) | payer OTHER, SELFPAY ==
[2024-05-10 13:23] LABS: % Basophils 0.4 % (0-2); % Eosinophils 2.3 % (0-6); % Immature Granulocytes 0.5 % (0-0.5); % Lymphocytes 7.6 % (20.5-51.1); % Monocytes 6.5 % (1.7-9.3); % Neutrophils 82.7 % (42.2-75.2); Absolute Basophils 0.1 10^3/uL (0-0.2); Absolute Eosinophils 0.3 10^3/uL (0-0.7); Absolute Immature Granulocytes 0.1 10^3/uL (0-0.05); Absolute Monocytes 0.8 10^3/uL (0.1-0.6); Absolute Neutrophils 10.8 10^3/uL (1.4-6.5); Hematocrit 32.3 % (39.0-52.0); Hemoglobin 10.2 g/dL (13.0-18.0); Mean Corp Hgb Conc. 31.6 g/dL (33.0-37.0); Mean Corpuscular Hgb 29.1 pg (27.0-31.0); Mean Corpuscular Volume 92.3 fL (80.0-94.0); Mean Platelet Volume 8.8 fL (7.4-10.4); Platelet Count 399 10^3/uL (130-400); Red Cell Dist. Width 20.2 % (11.5-14.5)
[2024-05-10 13:51] LABS: ALT (SGPT) 25 U/L (0-50); AST (SGOT) 43 U/L (17-59); Albumin 4.2 g/dl (3.5-5.0); Alkaline Phosphatase 180 U/L (38-126); Blood Urea Nitrogen 20 mg/dl (9-20); Carbon Dioxide 25 mmol/L (22-30); Chloride 100 mmol/L (98-107); Glucose 150 mg/dl (70-99); Potassium 4.5 mmol/L (3.5-5.1); Sodium 135 mmol/L (135-145); Total Bilirubin 0.8 mg/dl (0.2-1.3); Total Protein 6.5 g/dl (6.3-8.2); eGFR > 60.00
[2024-05-11 12:43] LABS: Magnesium 1.8 mg/dl (1.6-2.3)
== END ==
LOC: OIDL 13:18
PROVIDERS: ATTENDING PHYSICIAN Internal Medicine Hematology & Oncology
DX: C15.5 Malignant neoplasm of lower third of esophagus (principal); C78.7 Secondary malignant neoplasm of liver and intrahepatic bile duct; D50.9 Iron deficiency anemia, unspecified
CPT/HCPCS: 80053; 83735; 85025

== ENCOUNTER → 2024-05-27 08:11 | Outpatient (REF) | payer OTHER, SELFPAY ==
[2024-05-27 09:33] LABS: % Basophils 0.6 % (0-2); % Eosinophils 3.1 % (0-6); % Immature Granulocytes 0.9 % (0-0.5); % Lymphocytes 9.8 % (20.5-51.1); % Monocytes 6.9 % (1.7-9.3); % Neutrophils 78.7 % (42.2-75.2); Absolute Basophils 0.1 10^3/uL (0-0.2); Absolute Eosinophils 0.3 10^3/uL (0-0.7); Absolute Immature Granulocytes 0.1 10^3/uL (0-0.05); Absolute Lymphocytes 0.8 10^3/uL (1.2-3.4); Absolute Monocytes 0.6 10^3/uL (0.1-0.6); Absolute Neutrophils 6.3 10^3/uL (1.4-6.5); Hematocrit 30.8 % (39.0-52.0); Hemoglobin 9.7 g/dL (13.0-18.0); Mean Corp Hgb Conc. 31.5 g/dL (33.0-37.0); Mean Corpuscular Hgb 29.9 pg (27.0-31.0); Mean Corpuscular Volume 95.1 fL (80.0-94.0); Mean Platelet Volume 9.6 fL (7.4-10.4); Nucleated Red Blood Cells % 0 % (-); Platelet Count 433 10^3/uL (130-400); Red Blood Cell Count 3.24 10^6/uL (4.70-6.10); Red Cell Dist. Width 20.8 % (11.5-14.5)
[2024-05-27 10:59] LABS: ALT (SGPT) 41 U/L (0-50); AST (SGOT) 35 U/L (17-59); Albumin 3.5 g/dl (3.5-5.0); Alkaline Phosphatase 161 U/L (38-126); Blood Urea Nitrogen 10 mg/dl (9-20); Calcium 8.9 mg/dl (8.4-10.2); Carbon Dioxide 23 mmol/L (22-30); Chloride 106 mmol/L (98-107); Glucose 74 mg/dl (70-99); Potassium 4.1 mmol/L (3.5-5.1); Sodium 136 mmol/L (135-145); Total Bilirubin 0.6 mg/dl (0.2-1.3); Total Protein 5.8 g/dl (6.3-8.2); eGFR > 60.00
== END ==
LOC: REG 08:11
PROVIDERS: ATTENDING PHYSICIAN Internal Medicine Hematology & Oncology; FAMILY PHYSICIAN Family Medicine
DX: C15.5 Malignant neoplasm of lower third of esophagus (principal); C78.7 Secondary malignant neoplasm of liver and intrahepatic bile duct; D50.9 Iron deficiency anemia, unspecified
CPT/HCPCS: 36415; 80053; 85025

== ENCOUNTER → 2024-06-16 15:55 | Outpatient (REF) | payer OTHER, SELFPAY | LOC: RCS 15:55 | PROVIDERS: ATTENDING PHYSICIAN Nurse Practitioner Adult Health; FAMILY PHYSICIAN Family Medicine | DX: C15.5 Malignant neoplasm of lower third of esophagus (principal); C78.7 Secondary malignant neoplasm of liver and intrahepatic bile duct; D50.9 Iron deficiency anemia, unspecified; D70.1 Agranulocytosis secondary to cancer chemotherapy | CPT/HCPCS: 93306 ==

== ENCOUNTER → 2024-06-18 16:35 | Outpatient (REF) | payer OTHER, SELFPAY ==
[2024-06-18 18:07] LABS: ALT (SGPT) 40 U/L (0-50); AST (SGOT) 36 U/L (17-59); Albumin 3.8 g/dl (3.5-5.0); Alkaline Phosphatase 154 U/L (38-126); Blood Urea Nitrogen 9 mg/dl (9-20); Calcium 8.8 mg/dl (8.4-10.2); Carbon Dioxide 26 mmol/L (22-30); Chloride 103 mmol/L (98-107); Glucose 70 mg/dl (70-99); Potassium 4.3 mmol/L (3.5-5.1); Sodium 135 mmol/L (135-145); Total Bilirubin 0.4 mg/dl (0.2-1.3); Total Protein 5.8 g/dl (6.3-8.2); eGFR > 60.00
[2024-06-18 18:08] LABS: % Basophils 0.8 % (0-2); % Eosinophils 3.8 % (0-6); % Immature Granulocytes 0.6 % (0-0.5); % Monocytes 6.4 % (1.7-9.3); % Neutrophils 74.4 % (42.2-75.2); Absolute Basophils 0.1 10^3/uL (0-0.2); Absolute Eosinophils 0.3 10^3/uL (0-0.7); Absolute Immature Granulocytes 0.1 10^3/uL (0-0.05); Absolute Lymphocytes 1.2 10^3/uL (1.2-3.4); Absolute Monocytes 0.5 10^3/uL (0.1-0.6); Absolute Neutrophils 6.1 10^3/uL (1.4-6.5); Hematocrit 28.3 % (39.0-52.0); Hemoglobin 9.2 g/dL (13.0-18.0); Mean Corp Hgb Conc. 32.5 g/dL (33.0-37.0); Mean Corpuscular Hgb 30.6 pg (27.0-31.0); Mean Platelet Volume 9.8 fL (7.4-10.4); Nucleated Red Blood Cells % 0 % (-); Platelet Count 372 10^3/uL (130-400); Red Blood Cell Count 3.01 10^6/uL (4.70-6.10); Red Cell Dist. Width 18.2 % (11.5-14.5); White Blood Cell Count 8.3 10^3/uL (4.8-10.8)
== END ==
LOC: REG 16:35
PROVIDERS: ATTENDING PHYSICIAN Internal Medicine Hematology & Oncology; FAMILY PHYSICIAN Family Medicine
DX: C15.5 Malignant neoplasm of lower third of esophagus (principal); C78.7 Secondary malignant neoplasm of liver and intrahepatic bile duct; D50.9 Iron deficiency anemia, unspecified
CPT/HCPCS: 36415; 80053; 85025

== ENCOUNTER 2024-06-22 22:56 | Emergency (ER) | payer OTHER, SELFPAY ==
[2024-06-22 23:11] VITALS: BP 122/82
[2024-06-23] MEDS: ADACEL 0.5 ML IM (01:34)
--- NOTE | 2024-06-23 13:54 | ED.GENMED ---
History of Present Illness
General
Chief Complaint: Skin Surface Trauma
Source: patient
Exam Limitations: none
Time Seen by Provider: 06/23/24 00:02
Nursing documentation reviewed up to this point in time: agreed with
History of Present Illness
History of Present Illness:
This is a 44 y/o male with a pmh of esophageal cancer who presents to the ER today with concerns of a laceration to his right hand. Patient reports that he was cleaning his apartment and creating a new desk set up when he was using a clean knife to
cut an extension cord and accidentally cut the base of his right second finger. Patient reports that he had trouble controlling the bleeding. Currently, he is pain free. He denies any numbness or tingling in his fingers, denies difficulty moving his
fingers or his hand. He denies any other injuries.
He does not recall when his last tetanus vaccination was.
Past History
Past History
ED Past Medical History: Cancer (Distal esophagus and gastric with partial esophagectomy and gastrectomy in March 2021) and Other (gastritis)
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
Social History
Tobacco: Former smoker
Alcohol: Occasional
Personal: Single
Living: with family
Employment: Employed
Review of Systems
Review of Systems
All Other Systems: ROS reviewed and negative except as documented in HPI and ROS
Phy Exam
Physical Exam
Physical Exam:
General: Patient is well appearing and in no acute distress; non-toxic
Skin: Warm and dry, 2 cm superficial, well approximated laceration noted to dorsal base of right 2nd finger overlying MCP. NNo active bleeding. Brisk capillary refill.
Head: Normocephalic, atraumatic
Eyes: Sclera non-icteric. EOMs intact.
Cardiac: Regular rate
Pulm: Normal respiratory effort
Musculoskeletal: Full ROM of phalanges of right hand. No flexion or extension deformity.5/5 strength against resistance.
Neuro: CN II-XII intact, no focal neurologic deficits.
Psychiatric: Appropriate mood and affect.
Course
Orders/Labs/Results
Orders:
Orders
06/23/24 01:19
Tetanus/Diphth/Acelpertussis [Adacel] 0.5 ml IM .ONCE ONE
Vital Signs
Initial and Last Documented VS:
Initial Vital Signs
Temp Pulse Resp BP Pulse Ox
98.3 F 92 16 122/82 96
06/22/24 23:11 06/22/24 23:11 06/22/24 23:11 06/22/24 23:11 06/22/24 23:11
Last Documented Vital Signs
Temp Pulse Resp BP Pulse Ox
98.3 F 60 16 122/82 100
06/22/24 23:11 06/23/24 01:37 06/22/24 23:11 06/22/24 23:11 06/23/24 01:37
Procedures
Laceration Closure
right 2nd mcp:
Status of Wound: clean
Size of Wound in cm: 2
Description of Wound Edges: sharp
Preparation: cleaned with saline
Revision/Debridement: routine- no revision
Wound exploration: explored to base- no FB
Type of Closure: single layer closure and Dermabond-skin glue
MDM/Problems Addressed
Differential Diagnosis Includes:
abrasion, laceration, contusion
MDM/Problems Addressed:
44 y/o male presents with small superficial laceration over right 2nd mcp. Does not gape with movement of joint so dermabond was used for closure. Tetanus updated. He is neurovascularly intact. No tendon involvement. Pt stable for discharge
Chronic conditions affecting care:
esophageal cancer
*Pulse Oximetry
Patient hypoxic: no
*Critical Care Note
Total Time (30-74mins, 75-104mins- exclusive of procedures): Not Applicable
ED Attending Note
-
Portions of this chart may have been created with voice recognition software.� Occasional wrong word or��sound alike� substitutions may have occurred due to the inherent limitations of voice recognition software.
Discharge Plan
Departure
Patient Disposition: Home (Routine Discharge)
Date of Disposition: 06/23/24
Time of Disposition: 01:21
Patient with high blood pressure during this ER visit?: No
Condition: Good
Discharge Problem:
Finger laceration
Instructions: Laceration Repair With Glue (DC), Wound Care (DC)
Prescriptions:
No Action
ondansetron 8 mg Tablet,Disintegrating
8 mg PO Q12H PRN (Reason: nausea)
dexamethasone sodium phos (PF) 10 mg/mL Solution
10 mg PO DAILY
fosaprepitant 150 mg Recon Soln
150 mg IV ONCE
palonosetron 0.25 mg/5 mL Syringe
0.25 mg IV ONCE
Enhertu 100 mg Recon Soln
100 mg IV
Referrals:
Stefan Stafford DO [Family Provider] -
Activity Restrictions/Additional Instructions:
Your tetanus has been updated.
The glue will peel off on its own as the wound heals. Please keep the wound dry for 24 hours. After 24 hours, you can let warm soapy water run over the wound.
PLEASE RETURN EMERGENCY DEPARTMENT SHOULD YOU DEVELOP PURULENT DRAINAGE FROM THE WOUND, SURROUNDING REDNESS, FEVERS OR CHILLS, INCREASING PAIN, INABILITY TO MOVE YOUR HAND, PALLOR, CHEST PAIN, SHORTNESS OF BREATH, OR ANY OTHER SIGNS OR SYMPTOMS
WORRISOME TO YOU.
Interventions
Interventions:
*Risk Screen - Suicide Last Done: 06/22/24 23:11
*General Assessment Last Done: 06/23/24 01:37
*Neglect/Abuse Screening Last Done: 06/22/24 23:11
*ED- Fall Risk Assessment Last Done: 06/22/24 23:11
*ED COVID-19 Vaccine History Last Done: 06/22/24 23:11
*Nursing Disposition Last Done: 06/23/24 01:40
ED-Skin Assessment Last Done: 06/23/24 01:09
Discharge Date and Time
Discharge Date/Time: 06/23/24 01:41
Print Language: WOLOF
== END 2024-06-23 01:41 | disposition home or self-care (01) ==
LOC: EMR 22:56
PROVIDERS: EMERGENCY PHYSICIAN Student in an Organized Health Care Education/Training Program; FAMILY PHYSICIAN Family Medicine
DX: S61.411A Laceration without foreign body of right hand, initial encounter (principal); W26.0XXA Contact with knife, initial encounter; Z23 Encounter for immunization; C15.9 Malignant neoplasm of esophagus, unspecified; Z87.19 Personal history of other diseases of the digestive system; Z87.891 Personal history of nicotine dependence
CPT/HCPCS: 99282; 12001; 90471; 90715

== ENCOUNTER → 2024-07-16 15:49 | Outpatient (REF) | payer OTHER, SELFPAY ==
[2024-07-16 16:20] LABS: % Basophils 0.4 % (0-2); % Eosinophils 1.5 % (0-6); % Immature Granulocytes 0.3 % (0-0.5); % Monocytes 7.4 % (1.7-9.3); % Neutrophils 79.4 % (42.2-75.2); Absolute Eosinophils 0.1 10^3/uL (0-0.7); Absolute Monocytes 0.7 10^3/uL (0.1-0.6); Absolute Neutrophils 7.1 10^3/uL (1.4-6.5); Hematocrit 33.3 % (39.0-52.0); Hemoglobin 10.8 g/dL (13.0-18.0); Mean Corp Hgb Conc. 32.4 g/dL (33.0-37.0); Mean Corpuscular Hgb 29.8 pg (27.0-31.0); Mean Platelet Volume 9.4 fL (7.4-10.4); Nucleated Red Blood Cells % 0 % (-); Platelet Count 341 10^3/uL (130-400); Red Blood Cell Count 3.62 10^6/uL (4.70-6.10); Red Cell Dist. Width 15.4 % (11.5-14.5); White Blood Cell Count 8.9 10^3/uL (4.8-10.8)
[2024-07-16 16:41] LABS: ALT (SGPT) 32 U/L (0-50); AST (SGOT) 32 U/L (17-59); Albumin 3.9 g/dl (3.5-5.0); Alkaline Phosphatase 163 U/L (38-126); Blood Urea Nitrogen 19 mg/dl (9-20); Calcium 9.9 mg/dl (8.4-10.2); Carbon Dioxide 27 mmol/L (22-30); Chloride 103 mmol/L (98-107); Glucose 132 mg/dl (70-99); Potassium 4.7 mmol/L (3.5-5.1); Sodium 140 mmol/L (135-145); Total Bilirubin 0.5 mg/dl (0.2-1.3); Total Protein 6.6 g/dl (6.3-8.2); eGFR > 60.00
== END ==
LOC: REG 15:49
PROVIDERS: ATTENDING PHYSICIAN Internal Medicine Hematology & Oncology; FAMILY PHYSICIAN Family Medicine
DX: C15.5 Malignant neoplasm of lower third of esophagus (principal); C78.7 Secondary malignant neoplasm of liver and intrahepatic bile duct; D50.9 Iron deficiency anemia, unspecified
CPT/HCPCS: 36415; 80053; 85025

== ENCOUNTER → 2024-07-20 15:35 | Outpatient (REF) | payer OTHER, SELFPAY ==
[2024-07-20 13:45] LABS: % Basophils 0.2 % (0-2); % Eosinophils 2.1 % (0-6); % Immature Granulocytes 0.1 % (0-0.5); % Lymphocytes 11.4 % (20.5-51.1); % Monocytes 4.7 % (1.7-9.3); % Neutrophils 81.5 % (42.2-75.2); Absolute Eosinophils 0.2 10^3/uL (0-0.7); Absolute Lymphocytes 0.9 10^3/uL (1.2-3.4); Absolute Monocytes 0.4 10^3/uL (0.1-0.6); Absolute Neutrophils 6.7 10^3/uL (1.4-6.5); Hematocrit 31.7 % (39.0-52.0); Hemoglobin 10.1 g/dL (13.0-18.0); Mean Corp Hgb Conc. 31.9 g/dL (33.0-37.0); Mean Corpuscular Hgb 29.4 pg (27.0-31.0); Mean Corpuscular Volume 92.4 fL (80.0-94.0); Platelet Count 429 10^3/uL (130-400); Red Blood Cell Count 3.43 10^6/uL (4.70-6.10); White Blood Cell Count 8.2 10^3/uL (4.8-10.8)
== END ==
LOC: OIDL 15:35
PROVIDERS: ATTENDING PHYSICIAN Internal Medicine Hematology & Oncology
DX: C15.5 Malignant neoplasm of lower third of esophagus (principal); C78.7 Secondary malignant neoplasm of liver and intrahepatic bile duct
CPT/HCPCS: 85025

== ENCOUNTER → 2024-07-28 17:35 | Outpatient (REF) | payer OTHER, SELFPAY | LOC: RAD 17:35 | PROVIDERS: ATTENDING PHYSICIAN Internal Medicine Hematology & Oncology; FAMILY PHYSICIAN Family Medicine | DX: C15.5 Malignant neoplasm of lower third of esophagus (principal); C78.7 Secondary malignant neoplasm of liver and intrahepatic bile duct; D50.9 Iron deficiency anemia, unspecified; D70.1 Agranulocytosis secondary to cancer chemotherapy | CPT/HCPCS: 71260; 74177; Q9967 ==

== ENCOUNTER → 2024-08-06 11:41 | Outpatient (REF) | payer OTHER, SELFPAY ==
[2024-08-06 12:22] LABS: % Basophils 0.8 % (0-2); % Eosinophils 3.4 % (0-6); % Immature Granulocytes 0.6 % (0-0.5); % Lymphocytes 11.1 % (20.5-51.1); % Monocytes 8.4 % (1.7-9.3); % Neutrophils 75.7 % (42.2-75.2); Absolute Basophils 0.1 10^3/uL (0-0.2); Absolute Eosinophils 0.3 10^3/uL (0-0.7); Absolute Immature Granulocytes 0.1 10^3/uL (0-0.05); Absolute Lymphocytes 1.1 10^3/uL (1.2-3.4); Absolute Monocytes 0.8 10^3/uL (0.1-0.6); Absolute Neutrophils 7.3 10^3/uL (1.4-6.5); Hematocrit 32.1 % (39.0-52.0); Hemoglobin 10.3 g/dL (13.0-18.0); Mean Corp Hgb Conc. 32.1 g/dL (33.0-37.0); Mean Corpuscular Hgb 29.3 pg (27.0-31.0); Mean Corpuscular Volume 91.2 fL (80.0-94.0); Mean Platelet Volume 9.4 fL (7.4-10.4); Nucleated Red Blood Cells % 0 % (-); Platelet Count 341 10^3/uL (130-400); Red Blood Cell Count 3.52 10^6/uL (4.70-6.10); Red Cell Dist. Width 16.6 % (11.5-14.5); White Blood Cell Count 9.6 10^3/uL (4.8-10.8)
[2024-08-06 13:22] LABS: ALT (SGPT) 42 U/L (0-50); AST (SGOT) 31 U/L (17-59); Albumin 3.3 g/dl (3.5-5.0); Alkaline Phosphatase 135 U/L (38-126); Blood Urea Nitrogen 17 mg/dl (9-20); Calcium 8.8 mg/dl (8.4-10.2); Carbon Dioxide 24 mmol/L (22-30); Chloride 108 mmol/L (98-107); Glucose 72 mg/dl (70-99); Potassium 4.2 mmol/L (3.5-5.1); Sodium 138 mmol/L (135-145); Total Bilirubin 0.3 mg/dl (0.2-1.3); Total Protein 5.5 g/dl (6.3-8.2); eGFR > 60.00
== END ==
LOC: REG 11:41
PROVIDERS: ATTENDING PHYSICIAN Internal Medicine Hematology & Oncology; FAMILY PHYSICIAN Family Medicine
DX: C15.5 Malignant neoplasm of lower third of esophagus (principal); C78.7 Secondary malignant neoplasm of liver and intrahepatic bile duct; D50.9 Iron deficiency anemia, unspecified
CPT/HCPCS: 36415; 80053; 85025

== ENCOUNTER → 2024-08-27 15:17 | Outpatient (REF) | payer OTHER, SELFPAY ==
[2024-08-27 16:23] LABS: % Basophils 0.7 % (0-2); % Eosinophils 1.4 % (0-6); % Immature Granulocytes 0.6 % (0-0.5); % Lymphocytes 10.4 % (20.5-51.1); % Monocytes 6.1 % (1.7-9.3); % Neutrophils 80.8 % (42.2-75.2); Absolute Basophils 0.1 10^3/uL (0-0.2); Absolute Eosinophils 0.2 10^3/uL (0-0.7); Absolute Immature Granulocytes 0.1 10^3/uL (0-0.05); Absolute Lymphocytes 1.3 10^3/uL (1.2-3.4); Absolute Monocytes 0.7 10^3/uL (0.1-0.6); Absolute Neutrophils 9.8 10^3/uL (1.4-6.5); Hematocrit 32.8 % (39.0-52.0); Hemoglobin 10.6 g/dL (13.0-18.0); Mean Corp Hgb Conc. 32.3 g/dL (33.0-37.0); Mean Corpuscular Volume 89.6 fL (80.0-94.0); Mean Platelet Volume 9.8 fL (7.4-10.4); Nucleated Red Blood Cells % 0 % (-); Platelet Count 369 10^3/uL (130-400); Red Blood Cell Count 3.66 10^6/uL (4.70-6.10); Red Cell Dist. Width 16.7 % (11.5-14.5); White Blood Cell Count 12.2 10^3/uL (4.8-10.8)
[2024-08-27 16:37] LABS: ALT (SGPT) 59 U/L (0-50); AST (SGOT) 39 U/L (17-59); Alkaline Phosphatase 141 U/L (38-126); Blood Urea Nitrogen 14 mg/dl (9-20); Calcium 9.2 mg/dl (8.4-10.2); Carbon Dioxide 28 mmol/L (22-30); Chloride 105 mmol/L (98-107); Glucose 69 mg/dl (70-99); Potassium 4.6 mmol/L (3.5-5.1); Sodium 138 mmol/L (135-145); Total Bilirubin 0.5 mg/dl (0.2-1.3); Total Protein 6.3 g/dl (6.3-8.2); eGFR > 60.00
== END ==
LOC: REG 15:17
PROVIDERS: ATTENDING PHYSICIAN Internal Medicine Hematology & Oncology; FAMILY PHYSICIAN Family Medicine
DX: C15.5 Malignant neoplasm of lower third of esophagus (principal); C78.7 Secondary malignant neoplasm of liver and intrahepatic bile duct; D50.9 Iron deficiency anemia, unspecified
CPT/HCPCS: 36415; 80053; 85025

== ENCOUNTER → 2024-09-20 07:53 | Outpatient (REF) | payer OTHER, SELFPAY ==
[2024-09-20 08:41] LABS: % Basophils 0.8 % (0-2); % Eosinophils 2.9 % (0-6); % Immature Granulocytes 0.6 % (0-0.5); % Lymphocytes 9.9 % (20.5-51.1); % Monocytes 6.9 % (1.7-9.3); % Neutrophils 78.9 % (42.2-75.2); Absolute Basophils 0.1 10^3/uL (0-0.2); Absolute Eosinophils 0.3 10^3/uL (0-0.7); Absolute Immature Granulocytes 0.1 10^3/uL (0-0.05); Absolute Lymphocytes 0.9 10^3/uL (1.2-3.4); Absolute Monocytes 0.6 10^3/uL (0.1-0.6); Absolute Neutrophils 6.9 10^3/uL (1.4-6.5); Hemoglobin 11.4 g/dL (13.0-18.0); Mean Corp Hgb Conc. 32.6 g/dL (33.0-37.0); Mean Corpuscular Hgb 28.6 pg (27.0-31.0); Mean Corpuscular Volume 87.9 fL (80.0-94.0); Mean Platelet Volume 9.3 fL (7.4-10.4); Nucleated Red Blood Cells % 0 % (-); Platelet Count 339 10^3/uL (130-400); Red Blood Cell Count 3.98 10^6/uL (4.70-6.10); White Blood Cell Count 8.8 10^3/uL (4.8-10.8)
[2024-09-20 10:03] LABS: ALT (SGPT) 32 U/L (0-50); AST (SGOT) 31 U/L (17-59); Albumin 3.9 g/dl (3.5-5.0); Alkaline Phosphatase 126 U/L (38-126); Blood Urea Nitrogen 10 mg/dl (9-20); Calcium 9.2 mg/dl (8.4-10.2); Carbon Dioxide 27 mmol/L (22-30); Chloride 107 mmol/L (98-107); Glucose 82 mg/dl (70-99); Potassium 4.4 mmol/L (3.5-5.1); Sodium 140 mmol/L (135-145); Total Bilirubin 0.6 mg/dl (0.2-1.3); eGFR > 60.00
== END ==
LOC: REG 07:53
PROVIDERS: ATTENDING PHYSICIAN Internal Medicine Hematology & Oncology; FAMILY PHYSICIAN Family Medicine
DX: C15.5 Malignant neoplasm of lower third of esophagus (principal); C78.7 Secondary malignant neoplasm of liver and intrahepatic bile duct; D50.9 Iron deficiency anemia, unspecified
CPT/HCPCS: 36415; 80053; 85025

== ENCOUNTER → 2024-09-21 11:25 | Outpatient (REF) | payer OTHER, SELFPAY | LOC: HWRCS 11:25 | PROVIDERS: ATTENDING PHYSICIAN Internal Medicine Hematology & Oncology | DX: C15.5 Malignant neoplasm of lower third of esophagus (principal) | CPT/HCPCS: 93306 ==

== ENCOUNTER → 2024-10-07 16:09 | Outpatient (REF) | payer OTHER, SELFPAY ==
[2024-10-07 16:51] LABS: Hematocrit 32.2 % (39.0-52.0); Hemoglobin 10.5 g/dL (13.0-18.0); Mean Corp Hgb Conc. 32.6 g/dL (33.0-37.0); Mean Corpuscular Volume 91.0 fL (80.0-94.0); Nucleated Red Blood Cells % 0 % (-); Platelet Count 389 10^3/uL (130-400); Red Cell Dist. Width 19.0 % (11.5-14.5)
[2024-10-07 17:14] LABS: ALT (SGPT) 27 U/L (0-50); AST (SGOT) 27 U/L (17-59); Albumin 3.9 g/dl (3.5-5.0); Alkaline Phosphatase 147 U/L (38-126); Blood Urea Nitrogen 20 mg/dl (9-20); Calcium 9.2 mg/dl (8.4-10.2); Carbon Dioxide 22 mmol/L (22-30); Chloride 108 mmol/L (98-107); Glucose 185 mg/dl (70-99); Potassium 4.4 mmol/L (3.5-5.1); Sodium 137 mmol/L (135-145); Total Protein 6.1 g/dl (6.3-8.2); eGFR > 60.00
== END ==
LOC: REG 16:09
PROVIDERS: ATTENDING PHYSICIAN Internal Medicine Hematology & Oncology; FAMILY PHYSICIAN Family Medicine
DX: C15.5 Malignant neoplasm of lower third of esophagus (principal); C78.7 Secondary malignant neoplasm of liver and intrahepatic bile duct; D50.9 Iron deficiency anemia, unspecified
CPT/HCPCS: 36415; 80053; 85025

== ENCOUNTER 2024-10-14 06:28 | Day surgery (SDC) | payer OTHER, SELFPAY ==
--- NOTE | 2024-09-28 14:50 | CM ---
Addendum entered by Karin Adames RN 09/28/24 14:59:
CM confirmed that [facility]. CM sent preliminary referral via [facility].
Original Note:
Cm reviewed medical records. CM was updated that patient is planned for a J tube on 09/30. At this time, patient does not have tube feeding recommendations as per surgery. CM will sent preliminary referral to [facility].
Rosi from [facility] is aware.
--- NOTE | 2024-09-29 10:31 | VNURNOTE ---
Chart reviewed. Rec'ed update from surgeon Dr Pan and staff combat information center officer Zunilda Ortiz that patient's surgery rescheduled to 10/14. [facility] Intake dept updated. This author reached out to Dr Reeder's office. Rec'ed confirmation from Maureen that Dr
Varinder will sign for VN and follow tube feed orders post J tube placement.
Referral placed in [facility]. [facility] will [facility] to follow.
--- NOTE | 2024-10-05 16:34 | VNURNOTE ---
Call placed to patient. He confirms that he has had a J tube in the past with pump. Explained that he will need HOB elevated > 30-40 degrees to prevent aspiration. He declines a hospital bed, stating he will obtain wedge pillows. Patient stated
he was told by that he would stay overnight after J tube procedure. He stated his boss, slajrb-oa-sia or brother could pick him up once cleared for DC. Patient planning on returning to work within a week post procedure. Pt stated Dr Stafford
is technically his PCP, however, he has never seen him. He last saw Dr Casper in 2019. Pt confirmed he sees Dr Reeder Q3 weeks. Per previous note, ON[facility] agreed to sign for VN.
Surg coordinator arranging TF equip, formula/ [facility].
Requesting pt be DC in AM so VN can make a same day afternoon visit. Patient aware and in agreement. He confirms he is tolerating soft foods and drinks. [facility] Intake aware. Referral accepted.
--- NOTE | 2024-10-11 10:30 | CM ---
Addendum entered by Karin Adames RN 10/15/24 07:54:
CM faxed operative report to [facility].
VN is following.
Addendum entered by Karin Adames RN 10/14/24 13:57:
JAZLYN confirmed that patient will be staying over night. Johana at [facility] is requesting additional clinical information. CM will forward to [facility]. [facility] has script.
Addendum entered by Karin Adames RN 10/12/24 15:49:
JAZLYN requested enteral feeding script from surgical team. CM will await script.
Original Note:
JAZLYN spoke with Johana from [facility]. CM will send script for tube feeding when available.
[2024-10-14] VITALS (17 sets, daily range): BP systolic 72–108; BP diastolic 35–74; BMI 23.4
[2024-10-14] MEDS: TYLENOL 1000 MG PO (09:43)
[2024-10-14] MEDS: NORMOSOL-R/PLASMALYTE-A 1000 IV (10:10)
--- NOTE | 2024-10-14 14:55 | W.IMMPOSTOP ---
Surgical Immed Post Op Note
-
Primary Surgeon: Renato Pan MD
Assisting Surgeon: None
Pilot Steam Yacht: REJI Garcia
Pre-op Diagnosis: Esophageal cancer, malnutrition
Post-op Diagnosis: Same
Procedure Performed: Laparoscopic J-tube
Anesthesia Type: General
Specimen / Cultures: None
Estimated Blood Loss: 1 cc
Complications: None
Operative Findings: Old J-tube site identified, already tacked to the abdominal wall proximally and distally. Bowel run distally to confirm correct orientation. Proximally the JJ was identified. Hari 0 silk sutures were then placed medially and
laterally and tacked up to the abdominal wall using a Pedro Bonilla device. Using a 5 mm port an enterotomy was made and the bowel was entered. A 16 Vietnamese balloon tipped J-tube was cut to size and advanced through the abdominal wall into the
enterotomy and passed distally ensuring that no kinking of the bowel occurred. The balloon was inflated with 2 cc of sterile water and pulled just taut to the abdominal wall.
POST OP PLAN:
Imaging: None
Labs: Routine AM
Diet: Okay for clears. Nutrition consult to start trickle tube feeds and advance to goal tomorrow
Analgesia: Tylenol 650mg q6 Jan, Dilaudid 0.5mg q2h PRN
Neuro/vascular checks: Per unit
AC/AP: Hold Therapeutic AC, Ok for DVT PPx
Activity: Ad Fernanda
Wound/Incisions/Drains: Routine. Okay for tube feeds and liquid medications followed by flushes via the J-tube. No crushed meds via J-tube.
Abx: None
Dispo: RNF, anticipate discharge home or once home nutrition set up and teaching completed.
[2024-10-14] MEDS: TORADOL 10 MG IV ×2 (15:20→19:53)
[2024-10-14] MEDS: TYLENOL 650 MG PO ×2 (17:37→19:54)
--- NOTE | 2024-10-14 22:48 | W.PN.UPDATE ---
Update Note
Progress Note Update
Asked by RN to talk with patient regarding code status. Conversation with patient regarding code status, explained Full code vs DNR (no CPR and no intubation). Patient verbalized understanding. He is competent to make his own medication decisions.
Patient wishes code status to be changed to DNR. Code status updated in medical records/computer.
[2024-10-15] MEDS: TYLENOL PO (01:48)
--- NOTE | 2024-10-15 01:53 | PTCARENOTE ---
Pt informed this RN that he would like to be a DNR and that he has an advanced directive that states that. SAMPLE TAKER OPERATOR up to floor to confirm pt's wishes. DNR code status order placed. Plan of care ongoing.
[2024-10-15] MEDS: TORADOL 10 MG IV ×2 (02:56→07:24)
[2024-10-15] MEDS: TYLENOL 650 MG PO ×3 (02:58→11:16)
[2024-10-15 05:46] LABS: Hematocrit 30.2 % (39.0-52.0); Hemoglobin 9.8 g/dL (13.0-18.0); Mean Corp Hgb Conc. 32.5 g/dL (33.0-37.0); Mean Corpuscular Volume 91.5 fL (80.0-94.0); Platelet Count 270 10^3/uL (130-400); Red Cell Dist. Width 19.0 % (11.5-14.5)
[2024-10-15 05:54] LABS: Blood Urea Nitrogen 14 mg/dl (9-20); Calcium 8.8 mg/dl (8.4-10.2); Carbon Dioxide 26 mmol/L (22-30); Chloride 105 mmol/L (98-107); Estimated Creatinine Clearance > 125 ml/min; Glucose 90 mg/dl (70-99); Potassium 4.3 mmol/L (3.5-5.1); Sodium 136 mmol/L (135-145); eGFR > 60.00
[2024-10-15 06:26] LABS: Absolute Neutrophils -Man Diff 49.5 10^3/uL (1.4-6.5); Macrocytosis 2+; Normal RBC Morphology No; Platelets Checked Yes; Total Cells Counted 100
[2024-10-15] MEDS: PROTONIX 40 MG PO (07:24)
[2024-10-15 08:00] VITALS: BP 103/62
--- NOTE | 2024-10-15 09:07 | W.PN.GS2 ---
Addendum entered and electronically signed by Renato Pan MD 10/15/24 16:10:
I saw and examined the patient independently.
The resident's documentation was reviewed and I agree with the note, assessment and plan except where noted below.
Comment: This is a 44-year-old male postoperative day 1 from a laparoscopic J-tube placement for feeding access in the setting of recurrent esophageal cancer with known metastasis and worsening dysphagia.
Okay to begin trickle tube feeds, advance to goal nutrition following.
Okay for DC home once nutrition recommendations set up.
Original Note:
Today's Communication / Plan
-
Plan reviewed with attending.
Assessment / Plan
-
44yoM with recurrent esophageal cancer with metastases, dysphagia, FTT POD #1 for j tube placement to establish feeding access.
Vitals at baseline for him. Afebrile, incisions clean, dry, and intact. No concern for elevated WBC after discussion with heme/onc since pt recently received GCSF injection and clinically looks well. We discussed proper management of j tube with pt
in regards to best ways to prevent pulling, clogging, and leaking of the tube especially for his upcoming skydiving plans.
Plan:
Begin with trickle feeds. Diet plan coordinated with nutrition.
Pt is stable for discharge. Encouraged to reach out with any questions or concerns.
Subjective Data
-
Date of Service: October 15, 2024
44yoM with recurrent esophageal cancer with metastases, dysphagia, FTT POD #1 for j tube placement to estbalish feeding access. Pt reports controlled pain surrounding tube site. Denies nausea, vomiting, fever, chills. He is drinking gatorade this
morning. He in unable to consume solid foods PO due to tumor progression. Pt described increasing dysphagia but tolerates PO liquids right now.
Objective Data
-
Intake and Output
10/14/24 10/15/24 10/16/24
06:59 06:59 06:59
Intake Total 940 / 940
Output Total 450 / 450
Balance 490 / 490
Intake:
Oral fluids 640 / 640
IV fluids (Total) 300 / 300
normosol 300 / 300
Output:
Urine, Voided 450 / 450
Other:
How many times incontinent 2
MODERATE amount urine
Vital Signs
Temp Pulse Resp BP Pulse Ox
98.3 F 44 16 103/62 98
10/15/24 08:00 10/15/24 08:00 10/15/24 08:00 10/15/24 08:00 10/15/24 08:00
Lab Results
10/15/24 04:55
10/15/24 04:56
Calcium 8.8 mg/dl (8.4-10.2) 10/15/24 04:56
Physical Exam
-
Vital signs reviewed.
Constitutional: Patient appears comfortable, speaks full sentences without difficulty. Afebrile.
Respiratory: No increased work of breathing.
CV: Stable rate. Bradycardic.
Abdomen: Mild tenderness in the periumbilical area surrounding j tube. Tube clean and dry.
Skin: Skin is warm. Surgical incisions are clean and intact.
[2024-10-15 09:19] VITALS: BMI 23.4
--- NOTE | 2024-10-15 09:58 | W.DS.TRANS ---
DC Summary - Monitoring Manager
-
Discharge Instructions:
Sleep Apnea Risk Low
Discharge Diagnosis/Procedures Laparoscopic j-tube placement
Diet Other diet
Additional Diets TwoCal HN tube feeding at 20ml/hr over 12hours.
Increase by 20ml/hr every day until at goal of
90ml/hr. Set flush for 50ml/hr for 12 hours.
Activity No strenuous activity
Additional Activity Avoid lifting over 20lbs for the next 2 weeks.
Be careful not to dislodge your tube, please
call your surgeon immediately if this happens.
Driving Restrictions No driving for 24 hours
Bathing Restrictions OK to Shower
Other Services VN
Wound Care Allow the glue to flake off your incisions on
its own, avoid scrubbing or picking off.
Instructions:
Stand-Alone Forms:
Changes to Home Medications: No
Discharge Medications:
DC Medications w/original date entered in [facility]
fam-trastuzumab deruxtecn-nxki 100 mg intravenous solution (Enhertu) 100 mg IV Q3W 04/13/24
fosaprepitant 150 mg intravenous powder for solution 150 mg IV Q3W 04/13/24
ondansetron 8 mg disintegrating tablet 8 mg PO Q12H PRN nausea 04/13/24
palonosetron 0.25 mg/5 mL intravenous syringe 0.25 mg IV ONCE 04/13/24
fosaprepitant 150 mg intravenous powder for solution (Emend (fosaprepitant)) 150 mg IV ONCE 10/14/24
acetaminophen 325 mg tablet 650 mg (2 x 325 mg) PO Q4HPRN PRN mild pain #1 tab 10/15/24
tramadol 50 mg tablet 25 - 50 mg (0.5 - 1 x 50 mg) PO Q6HPRN PRN severe pain/breakthrough pain #5 tabs 10/15/24
Home Medication Changes
Pending Results: No
--- NOTE | 2024-10-15 11:18 | CM ---
Alert awake oriented patient who lives alone in a 2 story with one step to enter and lives on first floor. He is independent in all ADL.He has a J tube in past. Pt will have [facility] SOC today . Spoke with [facility] Johana formula changed to Nutren 2.0
MD and Manager Tax aware.
[facility] hx No SNF hx
Pharmacy [facility]
Dr Reeder will follow tube feeding ordered. PCP Dr Stafford
PLAN Home with tube feeding with supplies from [facility] and [facility]
[2024-10-15 11:20] VITALS: BP 94/58
--- NOTE | 2024-10-15 12:03 | PTCARENOTE ---
Pt discharged to home with VN. Reported familiar with J tube care because has had one in the past but foggy on flushing it. Demonstrated and then practiced flushing tube. Pt given bag with piston syringes and T square gauze. Reviewed care of tube
site, s/s infection to look out for. Verbalized understanding of all instructions. Pt left via [employer] at 1200.
--- NOTE | 2024-10-21 07:10 | OR.RPT ---
Operative Report
Operative Report
Patient Name: Art Calvo
: 1980
Date of Operation: 10/15/2019
Preoperative Diagnosis: Recurrent esophageal cancer, dysphagia
Postoperative Diagnosis: Same
Procedure(s):
1. Laparoscopic jejunostomy tube (Hari technique)
Surgeon(s):
Dr. Pan
Ferruler(s):
REJI Garcia
Anesthesia: General
Estimated Blood Loss: 1 cc
Urine Output: None
Drains/Lines/Implants: 16 Greek J-tube with 3 cc of sterile water
Specimens:
None
HPI/Surgical Indications:
This is a a 44-year-old male with a history of esophageal cancer status post partial esophagectomy and total gastrectomy with Alber-en-Y EJ reconstruction and previous J-tube placement via a left thoracoabdominal incision who unfortunately developed
recurrent esophageal cancer with metastasis to the lungs and liver. He presented to our office with some dysphagia and concern for progression. He was counseled on replacing his J-tube. Risks/Benefits/Alternatives were discussed at length, and
the patient agreed to proceed with surgery.
Operative Findings: Old J-tube site identified, already tacked to the abdominal wall proximally and distally. Bowel run distally to confirm correct orientation. Proximally the JJ was identified. Hari 0 silk sutures were then placed medially and
laterally and tacked up to the abdominal wall using a Pedro Bonilla device. Using a 5 mm port an enterotomy was made and the bowel was entered. A 16 Greek balloon tipped J-tube was cut to size and advanced through the abdominal wall into the
enterotomy and passed distally ensuring that no kinking of the bowel occurred. The balloon was inflated with 2 cc of sterile water and pulled just taut to the abdominal wall.
Procedure Description:
The patient was brought to the Operating Room and placed in the supine position with the right arm tucked. IV antibiotics were infused and Venodyne stockings placed. Following uneventful induction of general endotracheal anesthesia, an orogastric
tube were placed. The abdomen was prepped and draped in the usual sterile fashion. We entered the abdomen using an open Shakira technique. His prior J-tube site was readily apparent in the left upper quadrant, fairly close to our Shakira port. 2
more 5 mm ports were placed in the right upper and right lower quadrants. Further exploration of the abdomen did not show any sign of intra-abdominal metastases. Looking up in the left upper quadrant the JJ was identified and part of the colon was
noted to be extending cephalad into the hiatus. We then turned our attention back to the J tube site which was tethered longitudinally but there was a space between these tacking points which allowed us enough space to pass J-tube so medial and
lateral 2-0 silk sutures were passed through the bowel and then the abdominal wall was a Hari technique. Using a 5 mm port a tract was created through the abdominal wall at the site of his prior thoracicoabdominal incision. An enterotomy was made
and a 16 Greek balloon jejunostomy tube which had been cut to size was passed through the abdominal wall into the enterotomy and passed distally after we had already confirmed proper orientation of the bowel. The balloon was inflated to 3 cc of
sterile water in the stay sutures were tied down. The 5 mm ports were removed under direct visualization and pneumoperitoneum was then evacuated. The midline Shakira port was closed with an 0 PDS [id number] suture all ports were then closed
with 4-0 Monocryl followed by glue. The jejunostomy port site was dressed with a single drain sponge. An abdominal binder was placed to help protect the jejunostomy tube from inadvertent dislodgment. Overall, the patient tolerated the procedure
well and was taken to the Recovery Room postoperatively in stable condition.
Duglas was the attending physician and performed the procedure with assistance of the PA above. The assistance of REJI Garcia was required due to the complexity of the procedure. During the procedure Stephanie assisted with port placement, instrument
and needle exchanges, and closure of the wound. I was present for all portions of the case, excluding skin closure.
Renato Pan MD
--- NOTE | 2024-10-21 13:51 | OR.RPT ---
Operative Report
Operative Report
Patient Name: Art Calvo
: 01/23/1971
Date of Operation: 10/18/2024
Preoperative Diagnosis: Abdominal wall abscess
Postoperative Diagnosis: Same
Procedure(s):
Diagnostic Laparoscopy
Incision and drainage of an abdominal wall abscess
Surgeon(s):
Dr. Pan
Seam Closer(s):
None
Anesthesia: General
Estimated Blood Loss: 3 cc
Urine Output: None
Drains/Lines/Implants: Half inch iodoform packing
Specimens:
1. Abdominal wall fluid for culture
HPI/Surgical Indications:
This is a 44-year-old male postop day 4 from a laparoscopic J-tube placement who presents with abdominal pain, and pus from around his J-tube site concerning for possible leakage. His CT scan was concerning for an abdominal wall abscess but no
intra-abdominal pathology was identified. Risks/Benefits/Alternatives were discussed at length, and the patient agreed to proceed with surgery.
Operative Findings: While prepping the patient it was clear that his tube had been pulled back such that the balloon was in the abdominal wall. The balloon was deflated with leaking of succus around the tube. The J-tube was then readvanced and
reinflated, pulled back with subsequent cessation of the leakage. The abdomen was then prepped and draped in the usual fashion. His prior infraumbilical port site was reopened and safe entry was accomplished. The abdomen appeared pristine as did
the J-tube site, there is no evidence of intra-abdominal leakage. The balloon was deflated and then reinflated with 3.5 cc of saline and ensured to be seated properly. We then turned our attention to the abdominal wall. His prior thoracic
abdominal incision was opened about 2 inches lateral to the tube and dissected down into the abdominal wall to the level of the rectus sheath and passed and connected to towards the opening of the tube site. There was some murky appearing fluid
here which was cultured. This wound was packed with a half-inch iodoform packing strip
Procedure Description:
The patient was brought to the Operating Room and placed in the supine position with the arms tucked. IV antibiotics were infused and Venodyne stockings placed. Following uneventful induction of general endotracheal anesthesia the abdomen was
prepped and draped in the usual sterile fashion with Betadine. It was clear that the tube adductor been pulled back such that the balloon was in the abdominal wall and had dilated the tract around the J-tube causing the leakage of succus and and
pus. The J-tube was then readvanced and reinflated, pulled back with subsequent cessation of the leakage. His prior infraumbilical site was reincised and a 12 mm port was replaced into the abdomen. Pneumoperitoneum was established and we
confirmed that no injury occurred during our entry. A brief diagnostic laparoscopy was performed which confirmed no intra-abdominal spillage or leakage of contents and that the site was surprisingly well-healed just 4 days out from surgery. The
balloon was deflated and then reinflated with 3.5 cc sterile water to confirm that it was seated correctly. Pneumoperitoneum was evacuated and the incision was then closed with a [id number] 0 PDS suture. The skin was closed with a 4-0
Monocryl followed by glue. We then turned our attention to the abdominal wall. His prior thoracoabdominal incision was incised 2 inches lateral to the J-tube site and using curved hemostat we dissected the subcutaneous and fascial tissue to the
level of the J-tube site. We did encounter some purulent appearing fluid which was cultured. The wound was then packed with half inch iodoform packing strip and covered with gauze. Overall, the patient tolerated the procedure well and was taken to
the Recovery Room postoperatively in stable condition.
I was the attending physician and performed the procedure with no assistance. I was present for all portions of the case
Renato Pan MD
== END 2024-10-15 12:01 | disposition home or self-care (01) ==
LOC: SDS 06:28
PROVIDERS: ATTENDING PHYSICIAN Surgery
DX: L02.211 Cutaneous abscess of abdominal wall (principal); T85.528A Displacement of other gastrointestinal prosthetic devices, implants and grafts, initial encounter; Y83.1 Surgical operation with implant of artificial internal device as the cause of abnormal reaction of the patient, or of later complication, without mention of misadventure at the time of the procedure
CPT/HCPCS: 10060; 80048; 85025; C1776

== ENCOUNTER 2024-10-18 01:55 | Inpatient (IN) | payer OTHER, SELFPAY ==
[2024-10-17 20:24] VITALS: BP 108/79
[2024-10-17 21:03] LABS: Hematocrit 36.7 % (39.0-52.0); Hemoglobin 12.5 g/dL (13.0-18.0); Mean Corp Hgb Conc. 34.1 g/dL (33.0-37.0); Mean Corpuscular Volume 88.4 fL (80.0-94.0); Nucleated Red Blood Cells % 0 % (-); Platelet Count 252 10^3/uL (130-400); Red Cell Dist. Width 18.6 % (11.5-14.5)
[2024-10-17 21:04] LABS: Blood Urea Nitrogen 16 mg/dl (9-20); Calcium 9.5 mg/dl (8.4-10.2); Carbon Dioxide 23 mmol/L (22-30); Chloride 99 mmol/L (98-107); Glucose 133 mg/dl (70-99); Potassium 4.7 mmol/L (3.5-5.1); Sodium 129 mmol/L (135-145); eGFR > 60.00
[2024-10-17 21:55] VITALS: BMI 22.2
[2024-10-17 22:05] VITALS: BP 107/73
--- NOTE | 2024-10-17 22:55 | ED.GENMED ---
History of Present Illness
General
Chief Complaint: Catheter/Tube Problem
Source: patient and previous hospital records
Exam Limitations: none
Time Seen by Provider: 10/17/24 22:38
Nursing documentation reviewed up to this point in time: agreed with
History of Present Illness
History of Present Illness:
This is a 44-year-old gentleman with history of recurrent esophageal cancer with pulmonary as well as hepatic mets. Follows with Dr. Reeder, last chemotherapy infusion was Friday 5 days ago.
Due to worsening dysphagia with poor p.o. intake, failure to thrive a J-tube was placed October 14, discharged to home October 15. Since discharge home patient has had progressive pain at G-tube site. He was evaluated by home health nurse this morning
and was noted to have purulent foul-smelling drainage at G-tube site and some erythema around the G-tube. He did however tolerate G-tube feeding via pump that was set up by the home care nurse this morning. He has been intermittently nauseous but
has had no vomiting. He has had poor oral intake consuming small amount of soup yesterday.
Abdominal pain has worsened throughout the day today.
He denies fever nor chills. No cough no shortness of breath, no chest pain nor back pain. Admits to generalized weakness and increasing pain at G-tube site and generalized abdominal discomfort. He has been taking Tylenol every 4 hours as well as
tramadol with only minimal improvement in pain.
Last bowel movement 3 days ago.
Past History
Past History
ED Past Medical History: Cancer (Distal esophagus and gastric with partial esophagectomy and gastrectomy in March 2021. 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
Social History
Tobacco: Former smoker
Alcohol: Occasional
Personal: Single
Living: alone
Employment: Employed
Family History
Family History: Other (Noncontributory)
Phy Exam
Physical Exam
Physical Exam:
GENERAL: 44-year-old gentleman appears his stated age, awake and alert, appears in mild to moderate distress related to pain. Easily communicative. Borderline low-grade fever of 99.2 �F.
EYE: pupils equal and reactive. anicteric
NECK: Supple, nontender, no meningismus, no significant adenopathy.
ENT: Oral mucosa and lips are dry. No rhinorrhea.
CARDIAC: Regular rhythm. Mildly tachycardic. No murmur.
LUNGS: Clear breath sounds bilaterally, no acute respiratory distress, no wheezes/rales/rhonchi
ABDOMEN: J-tube right mid abdomen with yellowish-tomlinson foul-smelling exudate noted on 4 x 4 dressing. There is moderate abdominal wall erythema generalized to the anterior abdomen with exquisite tenderness to palpation. Abdominal wall is mildly warm
to touch. Normoactive bowel sounds.
NEUROLOGICAL: Alert and oriented x3, no focal neuro deficits.
SKIN: Warm and dry, normal color, skin intact. Abdominal wall erythema as above.
MUSCULOSKELETAL: No C/C/E. peripheral pulses are full and equal b/l. No palpable tenderness.
PSYCH: Normal and appropriate interaction.
Course
Orders/Labs/Results
Orders:
Orders
10/17/24 20:39
Basic Metabolic Panel Urgent
Complete Blood Count/With Diff Urgent
Lipase Urgent
Comment: ADD ON
Njlmz-Hnrz-Nxmkkhp Urgent
Comment: ADD ON
10/17/24 22:50
Add On- LAB Urgent
Tests Added?: LFT's, lipase
10/17/24 22:51
0.9% Sodium Chloride 1000 ml [Nss] 1,000 ml IV BOLUS
HYDROmorphone [Dilaudid] 1 mg IV NOW STA
10/17/24 22:52
Piperacillin/Tazo 4.5 Gram [Zosyn] 4.5 gram in 100 ml IV NOW
Vancomycin [Vancocin] 2,000 mg 0.9% Sodium Chloride 500 ml [Nss] 500 ml IV NOW
10/17/24 23:12
Ondansetron Injectable [Zofran] 4 mg IV NOW STA
10/17/24 23:16
Vancomycin [Vancocin] 2,000 mg 0.9% Sodium Chloride 500 ml [Nss] 500 ml IV NOW
10/17/24 23:28
Lactic Acid Urgent
Blood Culture Q30M
JUAN JOSÉ Source: Blood/Venous
Specimen Description:
Blood Culture Q30M
JUAN JOSÉ Source: Blood/Venous
Specimen Description:
10/18/24 00:00
CT Abd/pelvis W Iv Cont Urgent
Reason For Exam: J-tube place 10/14. pain, abd wall cellulitis
10/18/24 01:36
Admit/Transfer Patient As Directed
Co-Sign Provider:
Level of Care: Inpatient admission
Assign to:: Medical/Surgical
Physician / Group: yessica
Diagnosis: abdominal wall infection
Reason for Hospitalization: abdominal wall infection
Expected length of stay greater than two midnights?: Yes
ELOS- Estimated Length of Stay in days: 2
I certify the patient meets the requirements for IP care: Yes
PRN Pain Medication Management As Directed
May give lesser potent ordered pain med per pt: Yes
preference::
Protocol:: Medication orders for pain may be administered in a
manner that supports deferring to patient preference
when the pt is:
- Requesting an ordered lesser potent pain medication.
Least to most potent pain medications are defined
as: acetaminophen < NSAID < tramadol < opioids
(morphine, oxycodone, hydromorphone).
- Requesting a lesser dose of the same medication IF
ORDERED.
- Requesting a less intrusive route of administration
if both routes are prescribed by the provider (PO <
IV).
10/18/24 01:37
Code Status As Directed
Resuscitation Status: Full Code
Abnormal Lab Results
10/17/24
20:39
WBC 28.4 H 10^3/uL
(4.8-10.8)
RBC 4.15 L 10^6/uL
(4.70-6.10)
Hgb 12.5 L D g/dL
(13.0-18.0)
Hct 36.7 L %
(39.0-52.0)
RDW 18.6 H %
(11.5-14.5)
Abs Immat Gran (auto) 0.3 H 10^3/uL
(0-0.05)
Absolute Neuts (auto) 26.3 H 10^3/uL
(1.4-6.5)
Absolute Lymphs (auto) 0.9 L 10^3/uL
(1.2-3.4)
Absolute Monos (auto) 0.8 H 10^3/uL
(0.1-0.6)
Immature Gran % 1.1 H %
(0-0.5)
Neutrophils % 92.7 H %
(42.2-75.2)
Lymphocytes % 3.2 L %
(20.5-51.1)
Sodium 129 L mmol/L
(135-145)
Creatinine 0.6 L mg/dL
(0.7-1.3)
Glucose 133 H mg/dl
(70-99)
Alkaline Phosphatase 182 H U/L
(38-126)
10/17/24 20:39
10/17/24 20:39
Vital Signs
Temp: 99.2 F
Initial and Last Documented VS:
Initial Vital Signs
Temp Pulse Resp BP Pulse Ox
98.2 F 108 20 108/79 96
10/17/24 20:24 10/17/24 20:24 10/17/24 20:24 10/17/24 20:24 10/17/24 20:24
Last Documented Vital Signs
Temp Pulse Resp BP Pulse Ox
99.2 F 108 20 112/71 96
10/17/24 23:05 10/17/24 20:24 10/17/24 20:24 10/18/24 00:00 10/18/24 01:45
MDM/Problems Addressed
Differential Diagnosis Includes:
Significant concern for postop wound infection, abdominal wall cellulitis, concern for rapidly progressing cellulitis. Concern for potential subcutaneous abscess, intra-abdominal abscess.
Concern for progression of known esophageal carcinoma with metastasis.
Patient at risk for infection due to cancer, chemotherapy.
Concern for dehydration electrolyte abnormality as patient has had progressive dysphagia, poor oral intake, failure to thrive. He was unable to self initiate tube feedings October 16 due to pain at J-tube site/abdominal pain.
Labs thus far revealed moderately elevated white blood cell count of 28.4, this is in fact improved from 51.1 2 days ago.
Hemoglobin has trended up from 9.82 days ago to now 12.5. I suspect an element of dehydration/hemoconcentration.
Chemistry is notable for mild hyponatremia with sodium of 129. Normal BUN and creatinine.
Will check lactic acid. Will add LFTs and lipase. Due to low-grade fever, immunocompromise will add blood cultures.
Will initiate IV fluids, IV pain medication and initiate broad-spectrum antibiotics due to concern for rapidly progressive abdominal wall cellulitis.
Will check CT abdomen pelvis.
Due to rapid progression of abdominal wall cellulitis, severe pain, concern for sepsis patient at risk for rapid decompensation thus will require acute hospitalization.
Chronic conditions affecting care: Cancer
*Radiology
Radiology exam reviewed: radiology read reviewed
*Pulse Oximetry
SaO2: 95
Oxygen Mode of Delivery: Room air
Patient hypoxic: no
*Critical Care Note
Total Time (30-74mins, 75-104mins- exclusive of procedures): Not Applicable
Update Note
Update Note:
02:15
Lactic acid is normal.
CAT scan shows evidence of abdominal wall cellulitis. Concern for tiny abscess deep to the J-tube insertion site. There is also note of some free air in the abdomen and concern for for some free air left hemithorax concerning for pneumothorax but
could certainly be postoperative in nature. There is a large hiatal hernia that appears to be increasing in size compared to previous scans.
Patient continues to deny chest pain nor shortness of breath. Air within the left hemithorax is likely postoperative in nature.
ED Attending Note
-
Portions of this chart may have been created with voice recognition software.� Occasional wrong word or��sound alike� substitutions may have occurred due to the inherent limitations of voice recognition software.
Discharge Plan
Departure
Patient Disposition: Admit
Date of Disposition: 10/18/24
Time of Disposition: 01:00
Admit to: Med/Surg
Admit to doctor: Yessica
Presentation/result/management discussed w/ accepting MD/DO: Hospitalist
Condition: Serious
Discharge Problem:
Abdominal wall cellulitis, Postoperative J-tube insertion site infe
Interventions
Interventions:
*Risk Screen - Suicide Last Done: 10/17/24 20:24
*General Assessment Last Done: 10/17/24 20:24
*Neglect/Abuse Screening Last Done: 10/17/24 20:24
*ED- Fall Risk Assessment Last Done: 10/17/24 21:55
*ED COVID-19 Vaccine History Last Done: 10/17/24 21:55
PM-Ztltkk-Rzjnksmizi Assessment Last Done: 10/17/24 21:55
ED-Male Genitourinary Assessment Last Done: 10/17/24 21:55
[2024-10-17 23:00] VITALS: BP 111/72
[2024-10-17] MEDS: ZOFRAN 4 MG IV (23:57)
[2024-10-17] MEDS: ZOSYN 100 IV (23:58)
[2024-10-18] VITALS (17 sets, daily range): BP systolic 97–121; BP diastolic 52–77; BMI 22.1
[2024-10-18] MEDS: NSS 1000 IV ×4 (00:06→23:37)
[2024-10-18] MEDS: VANCOCIN 540 MG IV (00:06)
[2024-10-18 00:18] LABS: ALT (SGPT) 21 U/L (0-50); AST (SGOT) 23 U/L (17-59); Albumin 4.1 g/dl (3.5-5.0); Alkaline Phosphatase 182 U/L (38-126); Lipase 30 U/L (23-300); Total Protein 6.9 g/dl (6.3-8.2)
--- NOTE | 2024-10-18 01:11 | HPS.HSE ---
Family Physician
-
Family Physician: Stefan Stafford
Chief Complaint
-
Abdominal pain
History of Present Illness
This is a 44-year-old with past medical history significant for esophageal cancer status post treatment and recurrence was currently on chemotherapy infusions and is status post J-tube placement on October 14 now coming to the emergency department with
pain around the G-tube site.
He reports 2 days of abdominal pain, worse with any movement. Associated with nausea but no vomiting. Denies chills. Denies humberto fevers. Patient had a G-tube placed October 14 in preparation for more aggressive chemotherapy given recurrence of his
esophageal cancer. He still tolerates p.o. by mouth. Patient was seen at home by the health nurse yesterday morning and was found to have purulent foul-smelling drainage at the G-tube site. There is surrounding erythema. He was able to tolerate
G-tube feeding via the pump today. He still continues to have poor oral intake (reason for which the G-tube was placed). Abdominal pain was throughout the day today. Reports generalized weakness. Denies any flank pain dysuria or hematuria. He
has been taking Tylenol as well as tramadol regularly for the pain and was taking about 4 hours prior to coming to the ED. Last bowel movement was 3 days ago.
In the emergency department patient had a temp of 99.2, blood pressure was 112/71 with a pulse of 100 and was satting 93% on room air.
CBC shows a white count of 28, normal platelets and hemoglobin. Electrolytes were normal, BUN was normal creatinine was normal. Glucose was normal. Lactic acid was 1.
Medical History
Past Medical History
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
Past Surgical History: Reports Cholecystectomy and Other
Additional Past Surgical History:
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
Social History
Tobacco: Former Smoker
Alcohol: None
Drug: None
Family History
Family History: Not pertinent
Allergies / Home Medications
Allergies reflects when Allergies were last updated in [employer]
Home Medications with original date entered in [employer]
Allergy/Medication List:
Allergies
Allergy/AdvReac Type Severity Reaction Status Date / Time
No Known Allergies Allergy Verified 10/14/24 09:36
Home Medications
fam-trastuzumab deruxtecn-nxki 100 mg intravenous solution (Enhertu) 100 mg IV Q3W 04/13/24
fosaprepitant 150 mg intravenous powder for solution 150 mg IV Q3W 04/13/24
ondansetron 8 mg disintegrating tablet 8 mg PO Q12H PRN nausea 04/13/24
palonosetron 0.25 mg/5 mL intravenous syringe 0.25 mg IV ONCE 04/13/24
fosaprepitant 150 mg intravenous powder for solution (Emend (fosaprepitant)) 150 mg IV ONCE 10/14/24
acetaminophen 325 mg tablet 650 mg (2 x 325 mg) PO Q4HPRN PRN mild pain #1 tab 10/15/24
tramadol 50 mg tablet 25 - 50 mg (0.5 - 1 x 50 mg) PO Q6HPRN PRN severe pain/breakthrough pain #5 tabs 10/15/24
Review of Systems
-
History Source: Patient
A 12 point ROS was completed and negative except as noted: Yes
Constitutional: Denies Fever or Chills
Respiratory: Denies Cough or Trouble Breathing
Cardiac: Denies Chest Pain or Palpitations
Abdomen/GI: Reports Abdominal Pain; Denies Nausea, Vomiting, Diarrhea, Constipated, Bloody Stools or Black Stools
: Denies Dysuria, Frequency or Flank Pain
Musculoskeletal: Reports No Symptoms
Skin: Reports No Symptoms
Neurological: Denies Dizzy or Headache
Psych: Denies Depression or Anxiety
Physical Exam
Vital Signs
Vital Signs
Temp Pulse Resp BP Pulse Ox
99.2 F 108 20 112/71 93
10/17/24 23:05 10/17/24 20:24 10/17/24 20:24 10/18/24 00:00 10/18/24 00:30
Physical Exam
General: Pain
HEENT: NormoCephalic, Anicteric and Moist mucous membranes
Respiratory: Clear and Other (Right ij Port-A-Cath); No Wheezes, Rales, Rhonchi or Crackles
Cardiac: S1/S2 and Regular Rhythm
Breast: Deferred by me
GI: Tender (no rebound or guarding ) and Peg Tube (Foul-smelling drainage around the PEG tube insertion, local erythema and tenderness to palpation)
Rectal: Deferred by Provider
Genito-urinary: Deferred by me
Musculoskeletal: No Clubbing, No Cyanosis and No Edema
Skin: Warm
Neuro: AO x 3 and Nonfocal/grossly intact
Psych: Calm
Laboratory Results
-
10/17/24 20:39
10/17/24 20:39
Laboratory Results
Lactic Acid 1.0 mmol/L (0.7-2.0) 10/17/24 23:28
Total Bilirubin 0.7 mg/dl (0.2-1.3) 10/17/24 20:39
AST 23 U/L (17-59) 10/17/24 20:39
ALT 21 U/L (0-50) 10/17/24 20:39
Alkaline Phosphatase 182 U/L (38-126) H 10/17/24 20:39
Lipase 30 U/L (23-300) 10/17/24 20:39
Data Reviewed
-
CT Scan: Report Reviewed by me
Lab Data: Labs Reviewed by me
Old Records: Reviewed
Impression/Plan
-
IMPRESSION:
44-year-old with history of esophageal cancer status post treatment and now with recurrence of metastatic disease with mets to the liver and lungs pending aggressive chemo and status post elective J-tube placement will presents to the emergency
department with abdominal pain appears to be peritonitic with worsening with movement and there is drainage around the G-tube site and surrounding abdominal skin cellulitis. Sensitivity/tenderness at er Afebrile (was taking tylenol RTC at home),
leukocytosis to 28 (gcsf given recently), remains hemodynamically stable. Clear suggestion of infection but no sepsis at this time.
PLAN:
PEG site insertion wound infection with abdominal wall cellulitis. Normal lactate level. Tender to palp but no crepitus. Unlikely necrotizing fasciitis, less likely peritonitis but not entirely excluded
-Admit to [facility]
-CTAP pending to evaluate for abscess/fluid collection
-Blood cultures
-IV Zosyn for now
-Check MRSA swab
- serial examinations
-General Surgery consulted (G-tube placed by Dr. Ritter)
- diet as tolerated
-Continue IV fluids with NS, pain control and antiemetics
DVT prophylaxis�Lovenox subcu
CODE STATUS/full code
[2024-10-18] MEDS: DILAUDID 1 MG IV ×2 (05:02)
[2024-10-18] MEDS: ZOSYN 50 IV ×4 (05:05→23:37)
--- NOTE | 2024-10-18 06:02 | PTCARENOTE ---
Pt received from ER [facility] able to make his needs known.Pt c/o pain in LLQ prn pain meds given as ordered.Pt oriented to room & call nye in reach.
[2024-10-18] MEDS: ZOFRAN 4 MG IV (06:28)
[2024-10-18 08:17] LABS: Hematocrit 29.7 % (39.0-52.0); Hemoglobin 10.0 g/dL (13.0-18.0); Mean Corp Hgb Conc. 33.7 g/dL (33.0-37.0); Mean Corpuscular Volume 90.3 fL (80.0-94.0); Platelet Count 236 10^3/uL (130-400); Red Cell Dist. Width 18.5 % (11.5-14.5)
[2024-10-18] MEDS: SENOKOT-S 1 TABLET PO (08:31)
[2024-10-18] MEDS: ROXICODONE 5 MG PO (08:40)
--- NOTE | 2024-10-18 08:46 | VNURNOTE ---
Chart reviewed. Patient is current with [facility]. Will continue to follow hospital course and DC plans.
[2024-10-18 09:27] LABS: Blood Urea Nitrogen 13 mg/dl (9-20); Calcium 8.5 mg/dl (8.4-10.2); Carbon Dioxide 24 mmol/L (22-30); Chloride 103 mmol/L (98-107); Estimated Creatinine Clearance > 125 ml/min; Glucose 84 mg/dl (70-99); Magnesium 2.0 mg/dl (1.6-2.3); Potassium 4.1 mmol/L (3.5-5.1); Sodium 132 mmol/L (135-145); eGFR > 60.00
--- NOTE | 2024-10-18 09:42 | CON.ONC ---
Consultation
-
Date Consultation Requested: 10/18/24
Date Consultation Performed: 10/18/24
Requesting Provider: Sharda Dewitt
Performing Provider: Dr. Jeannine Pro
Reason for Consultation: metastatic esphageal cancer
Impression
Impression
metastatic esophageal cancer
a/w abdominal pain, erythema, and purulence from j tube site
leukocytosis secondary to GCSF +/- J tube site cellulitis
anemia at baseline
Plan
Plan
Plan for J tube removal per surgery, on IV abx, pain management
recommend swallow evaluation and recommendations from dietary for calorie intake recommendations
Chemotherapy will be postponed for resolution of infection/completion of abx
Patient History
History of Present Illness
44yo M with metastatic esophageal cancer admitted due to concern for J tube infection. He had his J tube placed and reports sleeping most of and Friday. He developed pain in his stomach associated with the J tube for which his
surgeon advised hospital admission. He has not started on tube feeding yet. He has been eating modified consistency diet and drinking 1-2 ensure, water, and gatorade to stay hydrated. His initial work up was notable for WBC 28.4, Hgb 12.5, platelet
count 252,000, Na 129, BUN 16, creatinine 0.6, alk phos 182 but otherwise normal LFTs. His CT ab/pelvis w IVC showed known pulmonary nodules, possibly increased in size, however, otherwise shows a positive response to therapy. The CT also showed air
and edema within the anterior abdominal wall subcutaneous soft tissues and musculature, compatible with postsurgical change and inflammation. No evidence for a well-defined abscess.
In brief, Art is known to Dr. Reeder for management of his metastatic esophageal cancer. She has been treated by Dr. Reeder since 2019 with FOLFOX, trastuzumab, Carbo/taxol/XRT. He started Enhertu and received cycle 11 with pegfilgrastim 10/13/2024.
His most recent restaging CT CAP with IVC June 2024 showed a slight increase in pulmonary metastases, nodule within the superior mediastinum also increased in size, stable hepatic metastases, and stable mesenteric nodule in the LUQ.
Clinically, reports fatigue, J tube site pain, abdominal TTP, and nausea.
Past-Medical/Surgical History
PMH
PSH mediport, left thoracoabdominal esophagogastrectomy with Alber en Y esophago-jejunostomy Mar 2021, neck surgery in childhood,
Social former smoker. 6-7 ETOH/week. denies recreational drugs. Carlos
Family pathernal grandmother breast cancer, father brain cancer
Patient Medication
�Medication �Instructions �Recorded �Confirmed �Last Taken �Type
fam-trastuzumab deruxtecn-nxki 100 100 mg IV Q3W 04/13/24 10/14/24 10/12/24 History
mg intravenous solution (Enhertu)
fosaprepitant 150 mg intravenous 150 mg IV Q3W 04/13/24 10/14/24 10/12/24 History
powder for solution
ondansetron 8 mg disintegrating 8 mg PO Q12H PRN nausea 04/13/24 10/14/24 Unknown History
tablet
palonosetron 0.25 mg/5 mL 0.25 mg IV ONCE 04/13/24 10/14/24 10/12/24 History
intravenous syringe
fosaprepitant 150 mg intravenous 150 mg IV ONCE 10/14/24 10/14/24 10/12/24 History
powder for solution (Emend
(fosaprepitant))
acetaminophen 325 mg tablet 650 mg (2 x 325 mg) PO Q4HPRN PRN 10/15/24 10/18/24 Unknown Rx
mild pain #1 tab
tramadol 50 mg tablet 25 - 50 mg (0.5 - 1 x 50 mg) PO 10/15/24 10/18/24 Unknown Rx
Q6HPRN PRN severe
pain/breakthrough pain #5 tabs
Active Medications
Generic Name Dose Route Start Last Admin
Trade Name Freq PRN Reason Stop Dose Admin
Acetaminophen 650 mg 10/18/24 04:17
Acetaminophen 325 Mg Tablet PO 11/15/24 04:16
Q4HPRN PRN
mild pain/TOBIAS/temp> 100.4F
Bisacodyl 10 mg 10/18/24 04:17
Bisacodyl 10 Mg Rectal Suppository RECTAL 11/15/24 04:16
[id number] PRN
constipation
Enoxaparin Sodium 40 mg 10/18/24 18:00
Enoxaparin Sodium 40 Mg/0.4 Ml Syringe SC 11/15/24 17:59
QPM EFRAÍN
Fentanyl Citrate 25 mcg 10/18/24 09:23
Fentanyl (50 Mcg/Ml) 100 Mcg/2 Ml Ampul IV 10/19/24 09:23
[id number] PRN
shivers
Heparin Sodium (Porcine) 500 unit 10/18/24 08:15
Heparin Flush Pf (100 Unit/Ml) 5 Ml Syringe IV 11/15/24 08:14
PER PROTOCOL EFRAÍN
Hydromorphone HCl 1 mg 10/18/24 04:17 10/18/24 05:02
Hydromorphone 0.5 Mg/0.5 Ml Syringe IV 11/01/24 04:16 1 mg
Q4HPRN PRN Administration
severe pain
Hydromorphone HCl 0.5 mg 10/18/24 09:23
Hydromorphone 0.5 Mg/0.5 Ml Syringe IV 10/19/24 09:23
PACU-Q5MPRN PRN
severe pain
Hydromorphone HCl 0.25 mg 10/18/24 09:23
Hydromorphone 0.25 Mg/0.5 Ml Syringe IV 10/19/24 09:23
PACU-Q5MPRN PRN
moderate pain
Sodium Chloride 1,000 mls @ 125 mls/hr 10/18/24 04:17 10/18/24 05:05
Nss IV 1,000 mls
.Q8H EFRAÍN Administration
Piperacillin Sod/Tazobactam Sod 3.375 gram in 50 mls @ 100 mls/hr 10/18/24 06:00 10/18/24 05:05
Zosyn IV 50 mls
Q6H EFRAÍN Administration
Parenteral Electrolytes 1,000 mls @ 100 mls/hr 10/18/24 09:30
Normosol-R/Plasmalyte-A IV 10/19/24 09:23
PER PROTOCOL EFRAÍN
Ondansetron HCl 4 mg 10/18/24 04:17 10/18/24 06:28
Ondansetron 4 Mg/2 Ml Vial IV 11/15/24 04:16 4 mg
Q6HPRN PRN Administration
nausea and vomiting
Ondansetron HCl 4 mg 10/18/24 09:23
Ondansetron 4 Mg/2 Ml Vial IV 10/19/24 09:23
PACU-ONCEPRN PRN
nausea/vomiting
Oxycodone HCl 5 mg 10/18/24 04:17 10/18/24 08:40
Oxycodone 5 Mg Regular Release Tablet PO 11/01/24 04:16 5 mg
Q4HPRN PRN Administration
moderate pain
Polyethylene Glycol 17 grams 10/18/24 04:17
Polyethylene Glycol Powder 17 Grams Packet PO 11/15/24 04:16
DAILYPRN PRN
constipation
Prochlorperazine Edisylate 5 mg 10/18/24 09:23
Prochlorperazine 10 Mg/2 Ml Vial IV 10/19/24 09:23
PACU-ONCEPRN PRN
nausea/vomiting
Senna/Docusate Sodium 1 tablet 10/18/24 04:17 10/18/24 08:31
Docusate W/Senna (Ana-Colace) Tablet PO 11/15/24 04:16 1 tablet
BIDPRN PRN Administration
constipation
Sodium Chloride 0 flush 10/18/24 05:00
Sodium Chloride 0.9% (Flush) Syringe IV 11/15/24 04:59
PER PROTOCOL EFRAÍN
Review of Systems
-
ROS is notable for HPI, otherwise negative
Physical Exam
-
General: No Apparent Distress
HEENT: Moist Mucous Membranes; Negative Jaundice
Cardiology: Normal Sinus Rhythm
Pulmonary: Clear
GI: Soft and Other (TTP over J tube site. Jtube with local erythema)
Extremities: Pulses Present; Negative Edema
Neurology: Non Focal
Skin: Warm
Labs
Lab Results
WBC 25.1 10^3/uL (4.8-10.8) H 10/18/24 08:06
RBC 3.29 10^6/uL (4.70-6.10) L 10/18/24 08:06
Hgb 10.0 g/dL (13.0-18.0) L 10/18/24 08:06
Hct 29.7 % (39.0-52.0) L 10/18/24 08:06
MCV 90.3 fL (80.0-94.0) 10/18/24 08:06
MCH 30.4 pg (27.0-31.0) 10/18/24 08:06
MCHC 33.7 g/dL (33.0-37.0) 10/18/24 08:06
RDW 18.5 % (11.5-14.5) H 10/18/24 08:06
Plt Count 236 10^3/uL (130-400) 10/18/24 08:06
MPV 9.5 fL (7.4-10.4) 10/18/24 08:06
Abs Immat Gran (auto) 0.3 10^3/uL (0-0.05) H 10/17/24 20:39
Absolute Neuts (auto) 26.3 10^3/uL (1.4-6.5) H 10/17/24 20:39
Absolute Lymphs (auto) 0.9 10^3/uL (1.2-3.4) L 10/17/24 20:39
Absolute Monos (auto) 0.8 10^3/uL (0.1-0.6) H 10/17/24 20:39
Absolute Eos (auto) 0.1 10^3/uL (0-0.7) 10/17/24 20:39
Absolute Basos (auto) 0.0 10^3/uL (0-0.2) 10/17/24 20:39
Immature Gran % 1.1 % (0-0.5) H 10/17/24 20:39
Neutrophils % 92.7 % (42.2-75.2) H 10/17/24 20:39
Lymphocytes % 3.2 % (20.5-51.1) L 10/17/24 20:39
Monocytes % 2.6 % (1.7-9.3) 10/17/24 20:39
Eosinophils % 0.3 % (0-6) 10/17/24 20:39
Basophils % 0.1 % (0-2) 10/17/24 20:39
Creatinine 0.5 mg/dL (0.7-1.3) L 10/18/24 08:06
Vital Signs
Vital Signs
Temp Pulse Resp BP Pulse Ox
97.5 F 60 16 107/65 95
10/18/24 07:40 10/18/24 07:40 10/18/24 07:40 10/18/24 07:40 10/18/24 07:40
--- NOTE | 2024-10-18 09:47 | W.PN.HOSP.TC ---
Today's Communication/Plan
-
Likely CAT scan chest after the procedure to rule out acute lung issue
For now, NPO, IVF for procedure
IV Zosyn
Assessment / Plan
Assessment / Plan
Physical Exam
General: not in respiratory distress
HEENT: Normocephalic, Anicteric and Moist mucous membranes
Respiratory: Clear and Other (Right ij Port-A-Cath); No Wheezes, Rales, Rhonchi or Crackles
Cardiac: S1/S2 and Regular Rhythm
GI: Tender around Peg Tube local erythema and tenderness to palpation but not on the rest of abdomen
Rectal: no bleeding
Genito-urinary: No Simental
Musculoskeletal: No Clubbing, No Cyanosis and No Edema
Skin: Warm
Neuro: AO x 3 and Nonfocal/grossly intact
Psych: Calm
44-year-old with history of esophageal cancer status post treatment and now with recurrence of metastatic disease with mets to the liver and lungs pending aggressive chemo and status post elective J-tube placement will presents to the emergency
department with abdominal pain around the G-tube site and surrounding abdominal skin cellulitis.
# PEG site insertion wound infection with abdominal wall cellulitis. Normal lactate level. Tender to palp but no crepitus. Unlikely necrotizing fasciitis, less likely peritonitis but not entirely excluded
-Admit to MedSurg
Localized infection, not sepsis
-CT is reviewed with surgery: air and edema within the anterior abdominal wall subcutaneous soft tissues and musculature, compatible with postsurgical change and inflammation. No evidence for a well-defined abscess.
-Blood cultures
-IV Zosyn for now
-Check MRSA swab
-General Surgery consulted (G-tube placed by Dr. Ritter)
- NPO for procedure
-Continue IV fluids with NS, pain control and antiemetics
# hyponatremia, mild
No confusion
# Advanced esophageal cancer
Primary oncologist Dr Reeder
# Possible left small pneumothorax, will repeat CT chest Vs chest x ray
No hypoxia
DVT prophylaxis�Lovenox subcu
CODE STATUS/DNR, confirmed with pt.
Total time spent to see the patient on the floor, examine the patient, review data and lab results, discuss treatment plan with patient, nursing staff around 55 minutes.
Anticipated Discharge: > 48 hours
Subjective/Interval History
-
Date of Service: October 18, 2024
Pain around peg tube
No chest pain
No nausea
No fevers
Objective Data
-
Labs:
Laboratory Results
10/17/24 10/18/24
20:39 08:06
WBC 25.1 H
Hgb 10.0 L
Hct 29.7 L
Plt Count 236
Sodium 132 L
Potassium 4.1
Chloride 103
Carbon Dioxide 24
BUN 13
Creatinine 0.5 L
Glucose 84
Calcium 8.5
Total Bilirubin 0.7
AST 23
ALT 21
Alkaline Phosphatase 182 H
Vital Signs:
Vital Signs
Temp Pulse Resp BP Pulse Ox
97.5 F 60 16 107/65 95
10/18/24 07:40 10/18/24 07:40 10/18/24 07:40 10/18/24 07:40 10/18/24 07:40
--- NOTE | 2024-10-18 10:22 | CON.GS ---
Addendum entered and electronically signed by Renato Pan MD 10/18/24 13:45:
I saw and examined the patient independently.
The resident's documentation was reviewed and I agree with the note, assessment and plan except where noted below.
Comment: This is a 44-year-old male with a history of esophageal cancer status post resection with EJ reconstruction and unfortunate recurrence with metastasis to the lungs and liver. He is starting to have early signs of dysphagia and malnutrition
so was taken to the OR last for J-tube placement which was uneventful and he was discharged on Friday. Over the weekend however he developed pain around his J-tube site with erythema and purulent drainage so was counseled to return to the
hospital yesterday evening. CT scan demonstrates inflammation in the left rectus sheath around the J-tube site.
Will plan for a diagnostic laparoscopy in the OR today. If the J-tube site is salvageable we will leave it in place and just drain the surrounding infection however if there is a leak at the J-tube site will take this down. The patient is adamant
that about not getting tube replaced at this time.
N.p.o., IV fluids, IV antibiotics.
Risks/Benefits/Alternatives, expected postoperative course and possible complications (bleeding, infection, injury to surrounding structures, acute/chronic pain) discussed at length. Patient wishes to proceed with surgery. All questions answered.
Consent obtained.
I spent 70 minutes in total for the care of this patient today including direct patient care and counseling, reviewing labs, imaging, coordination of care, as well as documentation.
Original Note:
Medical History
-
Chief Complaint: pain at j tube site
History of Present Illness:
Mr. Calvo is 44yoM with esophageal cancer POD #4 from j tube placement presenting with severe abdominal pain around site. Pt reports feeling well on discharge with no significant pain Friday with onset being home on Friday. Denies fevers or chills.
He reports having pain associated nausea but no emesis. He states that he has slept all weekend, very abnormal for him. The pain on Friday became unbearable, prompting his presentation.
Most recent chemotherapy last Friday with GCSF injection. Pt denies any prior episode like this with prior j tube.
Past Medical History
Past Medical History: Other (esophageal cancer with metastases)
Past Surgical History: Other (prior j tube)
Allergies / Home Medications
Allergy/AdvReac Type Severity Reaction Status Date / Time
No Known Allergies Allergy Verified 10/14/24 09:36
�Medication �Instructions �Recorded �Confirmed �Type
fam-trastuzumab deruxtecn-nxki 100 100 mg IV Q3W 04/13/24 10/14/24 History
mg intravenous solution (Enhertu)
fosaprepitant 150 mg intravenous 150 mg IV Q3W 04/13/24 10/14/24 History
powder for solution
ondansetron 8 mg disintegrating 8 mg PO Q12H PRN nausea 04/13/24 10/14/24 History
tablet
palonosetron 0.25 mg/5 mL 0.25 mg IV ONCE 04/13/24 10/14/24 History
intravenous syringe
fosaprepitant 150 mg intravenous 150 mg IV ONCE 10/14/24 10/14/24 History
powder for solution (Emend
(fosaprepitant))
acetaminophen 325 mg tablet 650 mg (2 x 325 mg) PO Q4HPRN PRN 10/15/24 10/18/24 Rx
mild pain #1 tab
tramadol 50 mg tablet 25 - 50 mg (0.5 - 1 x 50 mg) PO 10/15/24 10/18/24 Rx
Q6HPRN PRN severe
pain/breakthrough pain #5 tabs
Review of Systems
-
History Source: Patient
All other systems: Negative unless noted
A 10 point review of systems was completed, and was negative except as per HPI.
Physical Exam
Vital Signs
Temp Pulse Resp BP Pulse Ox
97.5 F 60 16 107/65 95
10/18/24 07:40 10/18/24 07:40 10/18/24 07:40 10/18/24 07:40 10/18/24 07:40
10/17/24 10/18/24 10/19/24
06:59 06:59 06:59
Actual Weight 69.995 kg
Body Mass Index (BMI) 22.1
Lab Results
10/18/24 08:06
10/18/24 08:06
WBC 25.1 10^3/uL (4.8-10.8) H 10/18/24 08:06
Hgb 10.0 g/dL (13.0-18.0) L 10/18/24 08:06
Hct 29.7 % (39.0-52.0) L 10/18/24 08:06
Plt Count 236 10^3/uL (130-400) 10/18/24 08:06
Abs Immat Gran (auto) 0.3 10^3/uL (0-0.05) H 10/17/24 20:39
Neutrophils % 92.7 % (42.2-75.2) H 10/17/24 20:39
Physical Exam
General: Pain and Other (uncomfortable lying in bed)
HEENT: Normocephalic, Anicteric and Moist Mucous Membranes
Respiratory: Non Labored Respirations
Cardiac: Regular Rhythm
GI: Soft, Tender (demarcated erythema surrounding site, red, hot and extremely tender, ) and Other (j tube with pungent purulence and erythema)
Musculoskeletal: No Edema
Skin: Warm and Dry
Neuro: AO x 3 and Nonfocal/Grossly Intact
Assessment / Plan
-
44yoM with esophageal cancer POD #4 from j tube placement presenting with abdominal pain, erythema, and purulence from j tube site. WBC still elevated from GCSF injection last week. Afebrile. Elevated HR and BP from pt's baseline.
Plan:
OR today to remove j tube
Continue Abx IV zosyn
Pain regimen: tylenol, Dilaudid with breakthrough oxycodone
Follow blood cultures
--- NOTE | 2024-10-18 12:28 | CM ---
Patient seen bedside w/ friend. Initial assessment completed. Patient is a 44-year-old with past medical history significant for esophageal cancer status post treatment and recurrence was currently on chemotherapy infusions and is status post J-tube
placement on October 14 now coming to the emergency department with pain around the G-tube site.
Patient resides alone in a 2STH, 1 step to enter. Patient is independent w/ ambulation, no device required. Independent w/ ADLs, no DME reported. Patient has tube feed supplies, doesn't recall the provider who supplies it. No therapy hx, current w/
[facility].
Address, points of contact and insurance verified
PCP: Stefan Stafford
Pharmacy: [facility]
NPO, IVF for procedure
IV Zosyn
Plan: Home, [facility] w/ [facility]
--- NOTE | 2024-10-18 12:34 | CON.ID ---
Consultation
-
Date/Time Consultation Requested: October 18, 2024 0641
Date/Time Consultation Performed: October 18, 2024 1600
Requesting Provider: Dr. Joselin Donaldson
Performing Provider: Dr. Daria Rangel
Reason for Consultation: Abdominal wall cellulitis
Chief Complaint / Past History
Chief Complaint
J-tube site pain and drainage
History of Present Illness
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 He returned to the ER October 17 due to
abdominal pain at the J-tube site with malodorous drainage. Denies fevers or chills. In ED white count 28.4. CAT scan of the abdomen pelvis post surgical changes around the J-tube with air and edema within the anterior abdominal wall,
subcutaneous soft tissues and muscles. He was taken to the OR today and found the jejunostomy balloon within the abdominal wall with leaking succus. No leakage into the intra-abdominal. There was murky fluid in the abdominal wall which was sent
for culture. The J-tube was repositioned. He is currently on Zosyn. Currently comfortable.
Past History
Additional Past Medical History:
Recurrent Esophageal cancer with mets to lungs, liver, adrenal, on tx
Additional Past Surgical History:
Esophagectomy, gastrectomy (03/2021)
Lap J-tube placement 10/14/24
Cholecystecomy
Allergy History:
No Known Allergies Allergy (Verified 10/14/24 09:36)
Medications Reviewed: Yes
Current Antibiotics:
Zosyn
Social History
Tobacco: Former Smoker
Alcohol: None
Drug: None
Family History
Family History: Not Pertinent
Review of Systems
Review of Systems
General: Negative Fever or Chills
HEENT: Negative Sinus Problems or Headache
Respiratory: Negative Dyspnea or Cough
Gasteroenterology: Negative Nausea, Vomiting or Diarrhea
Genital / Urological: Negative Dysuria or Flank Pain
Neurological: Negative Dizziness
All systems: All other systems were reviewed and were negative
Vital Signs
Temp Pulse Resp BP Pulse Ox
97.5 F 60 16 107/65 95
10/18/24 07:40 10/18/24 07:40 10/18/24 07:40 10/18/24 07:40 10/18/24 07:40
Physical Exam
Physical Exam
Constitutional: Non-toxic
Eyes: No Conjunctival Hemorrhage and Sclera Anicteric
Pulmonary: Clear
Gastrointestinal: Soft, Tender (mild), Non Distended and Other (post-op dressing in place)
Genito-Urinary: Negative CVA Tenderness
Extremities: Negative Edema
Neurological: AO x 3
Lines: Port (RCW: No erythema)
Lab / Diagnostic Study Results
10/18/24 08:06
10/18/24 08:06
Abs Immat Gran (auto) 0.3 10^3/uL (0-0.05) H 10/17/24 20:39
Absolute Neuts (auto) 26.3 10^3/uL (1.4-6.5) H 10/17/24 20:39
Absolute Lymphs (auto) 0.9 10^3/uL (1.2-3.4) L 10/17/24 20:39
Absolute Monos (auto) 0.8 10^3/uL (0.1-0.6) H 10/17/24 20:39
Absolute Basos (auto) 0.0 10^3/uL (0-0.2) 10/17/24 20:39
Immature Gran % 1.1 % (0-0.5) H 10/17/24 20:39
Neutrophils % 92.7 % (42.2-75.2) H 10/17/24 20:39
Lymphocytes % 3.2 % (20.5-51.1) L 10/17/24 20:39
Monocytes % 2.6 % (1.7-9.3) 10/17/24 20:39
Eosinophils % 0.3 % (0-6) 10/17/24 20:39
Basophils % 0.1 % (0-2) 10/17/24 20:39
Lactic Acid 1.0 mmol/L (0.7-2.0) 10/17/24 23:28
Microbiology Results
Micro:
10/18/24 04:33 MRSA Screen - Pending
Nose
10/17/24 23:28 Blood Culture - Pending
Blood/Venous
10/17/24 23: Blood Culture - Pending
Blood/Venous
10/18/24 CT a/p: Pulmonary nodules within the visualized right lung, compatible with pulmonary metastatic disease. Largest of these nodules in the inferior aspect of the right upper lobe has increased in size from previous CT examination. Large
hiatal hernia with distended loops of colon extending into the left hemithorax, increased from previous examination. Small foci of intraperitoneal air, which is likely from previous jejunostomy tube placement. There is probably a small anterior
left-sided pneumothorax. As warranted, consider further evaluation with CT of the chest. Soft tissue nodule within the posterior aspect of the hiatal hernia, decreased in size from prior examination, and probably a neoplastic implant with positive
response to therapy. Interval decrease in size of hepatic low-density lesions, compatible with positive response to therapy. Interval placement of jejunostomy tube, reportedly placed on October 14. There is air and edema within the anterior abdominal
wall subcutaneous soft tissues and musculature, compatible with postsurgical change and inflammation. No evidence for a well-defined abscess. Right adrenal gland mass compatible with metastatic disease.
Assessment / Plan
# Abdominal wall infection/cellulitis
due to malpositioned jejunostomy tube with balloon in abd wall
# Leukocytosis
# Metastatic esophageal cancer on therapy
- 10/18 s/p OR repositioning of J-tube, drainage of abd wall murky fluid
Appreciate surgery; OR cx pending
- Continue Zosyn
- Will de-escalate abx when cx data available.
- Trend wbc.
--- NOTE | 2024-10-18 14:52 | W.IMMPOSTOP ---
Surgical Immed Post Op Note
-
Primary Surgeon: Renato Pan MD
Assisting Surgeon: None
Pre-op Diagnosis: Abdominal wall cellulitis
Post-op Diagnosis: Abdominal wall abscess
Procedure Performed:
Diagnostic laparoscopy
Incision and drainage of an abdominal wall abscess
Anesthesia Type: General
Specimen / Cultures: Abdominal wall fluid for culture
Estimated Blood Loss: 3 cc
Complications: None
Operative Findings: While prepping the patient it was clear that his tube had been pulled back such that the balloon was in the abdominal wall. The balloon was deflated with leaking of succus around the tube. The J-tube was then readvanced and
reinflated, pulled back with subsequent cessation of the leakage. The abdomen was then prepped and draped in the usual fashion. His prior infraumbilical port site was reopened and safe entry was accomplished. The abdomen appeared pristine as did
the J-tube site, there is no evidence of intra-abdominal leakage. The balloon was deflated and then reinflated with 3.5 cc of saline and ensured to be seated properly. We then turned our attention to the abdominal wall. His prior thoracic
abdominal incision was opened about 2 inches lateral to the tube and dissected down into the abdominal wall to the level of the rectus sheath and passed and connected to towards the opening of the tube site. There was some murky appearing fluid
here which was cultured. This wound was packed with a half-inch iodoform packing strip
POST OP PLAN:
Imaging: None
Labs: Routine AM
Diet: N.p.o. for now except for meds and sips of clears. Will consider starting trickle tube feeds tomorrow.
Analgesia: Tylenol 650mg q6 Jan, Dilaudid 0.5mg q2h PRN
Neuro/vascular checks: q4h
AC/AP: Hold Therapeutic AC, Ok for DVT PPx
Activity: Ad Fernanda, will obtain abdominal binder
Wound/Incisions/Drains: Change packing daily.
Abx: Will plan for a 14-day course of antibiotics.
Dispo: RNF
[2024-10-18] MEDS: LOVENOX 40 MG SC (17:01)
--- NOTE | 2024-10-19 02:56 | DOWNTIME ---
There was a [employer] Intern Downtime on 10/19/2024 from 0100 to 10/19/2024 at 0220. Downtime documentation of patient's care, including medication administrations, has been reconciled in the electronic record per guidelines. Refer to the
patient's paper chart under the miscellaneous tab to see printed paper medication records and downtime forms.
[2024-10-19 03:29] VITALS: BP 97/51
[2024-10-19] MEDS: TYLENOL 650 MG PO (04:09)
[2024-10-19 05:46] LABS: Hematocrit 29.9 % (39.0-52.0); Hemoglobin 10.1 g/dL (13.0-18.0); Mean Corp Hgb Conc. 33.8 g/dL (33.0-37.0); Mean Corpuscular Volume 89.5 fL (80.0-94.0); Platelet Count 214 10^3/uL (130-400); Red Cell Dist. Width 18.0 % (11.5-14.5)
[2024-10-19 06:06] LABS: Blood Urea Nitrogen 16 mg/dl (9-20); Calcium 9.0 mg/dl (8.4-10.2); Carbon Dioxide 23 mmol/L (22-30); Chloride 105 mmol/L (98-107); Estimated Creatinine Clearance > 125 ml/min; Glucose 107 mg/dl (70-99); Potassium 4.4 mmol/L (3.5-5.1); Sodium 134 mmol/L (135-145); eGFR > 60.00
[2024-10-19] MEDS: ZOSYN 50 IV ×4 (06:09→23:05)
[2024-10-19 07:57] VITALS: BP 108/51
--- NOTE | 2024-10-19 08:17 | W.PN.ONC2 ---
Today's Communication / Plan
-
post operative care per surgery
daily CBC
Impression
Impression
metastatic esophageal cancer
a/w J tube cellulitis/abscess s/p J but removal 10/18
leukocytosis secondary to GCSF +/- J tube site cellulitis
anemia at baseline
Plan
Plan
on IV abx, pain management, wound management
swallow eval/nutrition consult
Chemotherapy will be postponed for resolution of infection/completion of abx, approximately 2 weeks
Subjective/Objective
Subjective
no new complaints
using oxy IR prn pain
using bowel regimen
Vital Signs:
Vital Signs
Temp Pulse Resp BP Pulse Ox
97.7 F 58 16 108/51 94
10/19/24 07:57 10/19/24 07:57 10/19/24 07:57 10/19/24 07:57 10/19/24 07:57
Lab Results:
Laboratory Data
WBC 25.6 10^3/uL (4.8-10.8) H 10/19/24 05:31
Hgb 10.1 g/dL (13.0-18.0) L 10/19/24 05:31
Plt Count 214 10^3/uL (130-400) 10/19/24 05:31
eGFR > 60.00 10/19/24 05:31
Physical Exam
General: No Apparent Distress
HEENT: Moist Mucous Membranes; Negative Jaundice
Cardiology: Normal Sinus Rhythm
Pulmonary: Clear
GI: Soft and TTP, dressing CDI
Extremities: Pulses Present; Negative Edema
Neurology: Non Focal
Skin: Warm
--- NOTE | 2024-10-19 08:45 | PTOTSP ---
Speech Language Pathology
Pt seen for clinical bedside swallow evaluation. Pt reported globus sensation in esophagus at home with choosing softer items. He typically drinks liquids and eats smooth foods, but also eats some solids, such as chicken noodle soup and baked
chicken cut in small pieces. When globus sensation noted, liquid wash is effective at times, but other times, he needs to regurgitate bolus. He also needs to eat slowly and smaller more frequent meals. He denies any signs of aspiration with P.O.
intake.
This date, P.O. trials of puree, regular solids, and thin liquids provided. Adequate mastication, bolus formation, and A-P transit with no oral residue. No overt signs of aspiration. Pt denied any globus sensation. Pt aware of what he can eat
and what he needs to avoid.
Recommend:
(1) Regular solids/thin liquids once cleared by surgery with pt choosing items he knows he can handle
(2) Esophageal precautions
(3) Meds as tolerated
(4) HEAD OF HOUSEKEEPING to sign off. Please reconsult as indicated
[2024-10-19] MEDS: PROTONIX IV 40 MG IV (08:53)
[2024-10-19] MEDS: NSS (PRESERVATIVE FREE) 10 ML IV (08:53)
--- NOTE | 2024-10-19 09:12 | W.PN.HOSP.TC ---
Today's Communication/Plan
-
f/w surgery for feeding
c/w IV Abx
Assessment / Plan
Assessment / Plan
Physical Exam
General: not in respiratory distress
HEENT: Normocephalic, Anicteric and Moist mucous membranes
Respiratory: Clear and Other (Right ij Port-A-Cath); No Wheezes, Rales, Rhonchi or Crackles
Cardiac: S1/S2 and Regular Rhythm
GI: Tender around Peg Tube local erythema and tenderness to palpation but not on the rest of abdomen
Rectal: no bleeding
Genito-urinary: No Simental
Musculoskeletal: No Clubbing, No Cyanosis and No Edema
Skin: Warm
Neuro: AO x 3 and Nonfocal/grossly intact
Psych: Calm
44-year-old with history of esophageal cancer status post treatment and now with recurrence of metastatic disease with mets to the liver and lungs pending aggressive chemo and status post elective J-tube placement will presents to the emergency
department with abdominal pain around the G-tube site and surrounding abdominal skin cellulitis.
# Abdominal wall abscess around peg tube / J tube malposition
s/p I & D of the abscess and Placing the tube with balloon/ properly seated by Dr Pan on 10/18
c/w IV Abx
started on mild feeding per surgery
Pain is resolving
WBC is around 25, leukocytosis secondary to GCSF +/- J tube site cellulitis
No fevers
Appreciate surgery & ID help
# hyponatremia, mild
No confusion
# Advanced esophageal cancer
Primary oncologist Dr Reeder
Anemia due to chemotherapy. Per oncology: anemia at baseline
# Possible left small pneumothorax, will repeat CT chest Vs chest x ray
No hypoxia
DVT prophylaxis�Lovenox subcu
CODE STATUS/DNR, confirmed with pt.
Total time spent to see the patient on the floor, examine the patient, review data and lab results, discuss treatment plan with patient, nursing staff around 55 minutes.
Anticipated Discharge: > 48 hours
Subjective/Interval History
-
Date of Service: October 19, 2024
He feels much better
no abd pain, no nausea
Objective Data
-
Labs:
Laboratory Results
10/19/24
05:31
WBC 25.6 H
Hgb 10.1 L
Hct 29.9 L
Plt Count 214
Sodium 134 L
Potassium 4.4
Chloride 105
Carbon Dioxide 23
BUN 16
Creatinine 0.5 L
Glucose 107 H
Calcium 9.0
Vital Signs:
Vital Signs
Temp Pulse Resp BP Pulse Ox
97.7 F 58 16 108/51 94
10/19/24 07:57 10/19/24 07:57 10/19/24 07:57 10/19/24 07:57 10/19/24 07:57
I&O
10/18/24 10/19/24 10/20/24
06:59 06:59 06:59
Intake Total 550 / 550
Output Total 1675 / 1675
Balance -1125 / -1125
--- NOTE | 2024-10-19 09:44 | W.PN.GS2 ---
Addendum entered and electronically signed by Renato Pan MD 10/19/24 16:46:
I saw and examined the patient independently.
The resident's documentation was reviewed and I agree with the note, assessment and plan except where noted below.
Comment: This is a 44-year-old male with a history of recurrent esophageal cancer status post J-tube placement 10/14/2024 With concern for tube malfunction and carie-incisional cellulitis. Now postoperative day 1 from a diagnostic lap, and incision
and drainage of an abdominal wall abscess.
Change I&D dressing daily. Pack with quarter inch or half inch iodoform packing strip. Please consult wound care to assist with the changes.
Continue antibiotics. Follow-up cultures.
Okay for trickle tube feeds, and ramp to goal. Appreciate nutrition recs.
Okay for clears by mouth and p.o. meds. As the tract was dilated by the balloon it will take a little bit of time for this tract to narrow back down around the tube. In the meantime it would be best to minimize the upstream contents (i.e. oral
intake)
Original Note:
Today's Communication / Plan
-
Plan reviewed with attending.
Assessment / Plan
-
44yoM with recurrent esophageal cancer with metastases, dysphagia, FTT, j tube placement 10/14/24 for feeding access POD #1 from j tube readjustment. J tube balloon was found lodged in the abdominal wall with findings of murky fluid cultured. No
concern for intrabdominal fluid leakage.
Vitals at baseline for him. Afebrile, incisions clean, dry, and intact. Expected drainage from j tube site. Slightly uptrended WBC still increased from recent GCSF injection. Culture from OR yesterday pending.
Plan:
Begin with trickle feeds and clear diet. Diet plan coordinated with nutrition.
Continue current pain regimen
14 total days abx. IV zosyn.
Follow culture.
Change tube dressing daily.
Subjective Data
-
Date of Service: October 19, 2024
Mr. Calvo is feeling well this morning. He reports managed pain on current regimen. Denies nausea or vomiting. He reports some increased drainage from the jtube site, but no pain associated.
Objective Data
-
Intake and Output
10/18/24 10/19/24 10/20/24
06:59 06:59 06:59
Intake Total 550 / 550
Output Total 1675 / 1675
Balance -1125 / -1125
Intake:
IV fluids (Total) 500 / 500
IV piggybacks 50 / 50
Output:
Urine, Voided 1674 / 1674
Other:
Number of approximated MODERATE 1
amounts of urine
Vital Signs
Temp Pulse Resp BP Pulse Ox
97.7 F 58 16 108/51 94
10/19/24 07:57 10/19/24 07:57 10/19/24 07:57 10/19/24 07:57 10/19/24 07:57
Lab Results
10/19/24 05:31
10/19/24 05:31
Calcium 9.0 mg/dl (8.4-10.2) 10/19/24 05:31
Magnesium 2.0 mg/dl (1.6-2.3) 10/18/24 08:06
Total Bilirubin 0.7 mg/dl (0.2-1.3) 10/17/24 20:39
Direct Bilirubin 0.3 mg/dl (0.0-0.4) 10/17/24 20:39
AST 23 U/L (17-59) 10/17/24 20:39
ALT 21 U/L (0-50) 10/17/24 20:39
Alkaline Phosphatase 182 U/L (38-126) H 10/17/24 20:39
Total Protein 6.9 g/dl (6.3-8.2) 10/17/24 20:39
Albumin 4.1 g/dl (3.5-5.0) 10/17/24 20:39
Physical Exam
-
Vital signs reviewed.
General: Patient appears comfortable, laying in bed in no acute distress
Respiratory: No increased work of breathing.
CV: Stable rate. Bradycardic.
Abdomen: Soft, nondistended. Mild tenderness in the periumbilical area surrounding j tube. Tube in place with yellow drainage.
Skin: Skin is warm. Surgical incisions are clean and intact. Erythematous region from yesterday resolved. Mild irritation from drainage.
[2024-10-19] MEDS: NSS 1000 IV (09:56)
[2024-10-19 11:20] VITALS: BP 101/57
[2024-10-19 12:43] VITALS: BMI 22.1
--- NOTE | 2024-10-19 12:47 | W.PN.ID1 ---
Date of Service
Date of Service: October 19, 2024
Today's Communication
Continue Zosyn.
Assessment / Plan
# Abdominal wall infection/cellulitis
due to malpositioned jejunostomy tube with balloon in abd wall
# Leukocytosis stable
# Metastatic esophageal cancer on therapy
- 10/18 s/p OR repositioning of J-tube, drainage of abd wall murky fluid
Appreciate surgery; OR cx: GNR, Strep species
- Continue Zosyn
- Will de-escalate abx when cx data available.
- Trend wbc.
Chief Complaint
-: Cellulitis
Subjective / Review of Systems
Feels OK
Vital Signs / Physical Exam
Vital Signs
Vital Signs
Temp Pulse Resp BP Pulse Ox
98.3 F 58 16 101/57 95
10/19/24 11:20 10/19/24 11:20 10/19/24 11:20 10/19/24 11:20 10/19/24 11:20
Physical Exam
Constitutional: No Acute Distress
Cardiovascular: Regular Rate and S1/S2
Pulmonary: Clear
Gastrointestinal: Soft and Non Tender
Extremities: Negative Edema
Neurological: AO x 3
Lines: Port (RCW no erythema)
Objective Data
Lab Data
Lab Results
10/19/24 05:31
10/19/24 05:31
Estimated Creat Clear > 125 ml/min 10/19/24 05:31
Lactic Acid 1.0 mmol/L (0.7-2.0) 10/17/24 23:28
Total Bilirubin 0.7 mg/dl (0.2-1.3) 10/17/24 20:39
AST 23 U/L (17-59) 10/17/24 20:39
ALT 21 U/L (0-50) 10/17/24 20:39
Alkaline Phosphatase 182 U/L (38-126) H 10/17/24 20:39
Most recent labs reviewed.
Micro Results:
10/18/24 14:22 Wound Culture - Preliminary
Abdomen Gram negative bacilli
Streptococcus species
Gram Stain - Preliminary
10/18/24 14:22 Anaerobic Culture - Preliminary
Abdomen Culture pending. Anaerobic cultures are examined after 3
days incubation. Additional information to follow.
10/18/24 04:33 MRSA Screen - Final
Nose No Methicillin Resistant Staphylococcus aureus isolated.
10/17/24 23:28 Blood Culture - Preliminary
Blood/Venous No Growth in 24 hours- Final report to follow
10/17/24 23:28 Blood Culture - Preliminary
Blood/Venous No Growth in 24 hours- Final report to follow
10/18/24 CT a/p: Pulmonary nodules within the visualized right lung, compatible with pulmonary metastatic disease. Largest of these nodules in the inferior aspect of the right upper lobe has increased in size from previous CT examination. Large
hiatal hernia with distended loops of colon extending into the left hemithorax, increased from previous examination. Small foci of intraperitoneal air, which is likely from previous jejunostomy tube placement. There is probably a small anterior
left-sided pneumothorax. As warranted, consider further evaluation with CT of the chest. Soft tissue nodule within the posterior aspect of the hiatal hernia, decreased in size from prior examination, and probably a neoplastic implant with positive
response to therapy. Interval decrease in size of hepatic low-density lesions, compatible with positive response to therapy. Interval placement of jejunostomy tube, reportedly placed on October 14. There is air and edema within the anterior abdominal
wall subcutaneous soft tissues and musculature, compatible with postsurgical change and inflammation. No evidence for a well-defined abscess. Right adrenal gland mass compatible with metastatic disease.
[2024-10-19] MEDS: ROXICODONE 5 MG PO (13:02)
--- NOTE | 2024-10-19 14:45 | PN.CDI ---
Addendum entered and electronically signed by Karena Donaldson MD 10/19/24 15:15:
_ Localized Infection Only, Without Systemic Illness
Original Note:
CDI
- -
CDI:
Physician Documentation Request
Admit Date: 10/18/24 01:55
Dear Doctor Mendoza,
Progress note states 'WBC is around 25, leukocytosis secondary to GCSF +/- J tube site cellulitis...c/w IV Abx'
Patient has remained afebrile, Presenting heart rate 108 , presenting respiratory rate 20
Please clarify which of the following most accurately describes the status of the patient's infection:
Sepsis
- Systemic manifestations of infection, with 2 or more SIRS criteria which include:
- Fever >100.9 degrees F or hypothermia < 96.8 degrees F
- Leukocytosis - WBC > 12,000 or leukopenia - WBC < 4,000 or > 10% bands
- Tachycardia > 90 beats per minute
- Tachypnea - RR > 20 breaths per minute or PaCO2 , 32mmHg
Source: [employer] Manual 2013
Localized Infection Only, Without Systemic Illness
- indicate the site/source, such as UTI, pneumonia etc.
Other
Use of terms such as suspected, likely, concern for, or probable (associated with a specific diagnosis that is being evaluated, monitored, or treated as if it exists) are acceptable and can be coded in the inpatient setting, when documented at the
time of discharge.
Thank you,
Kristin Walker RN BSN
CDI Specialist
tiger text
Please use your independent medical judgment in providing your response.
[2024-10-19 15:16] VITALS: BP 103/59
--- NOTE | 2024-10-19 16:13 | PTCARENOTE ---
Jevity 1.5 started @ 10ml an hour at 15:00. Patient tolerated clear liquids. No complaints at this time.
[2024-10-19] MEDS: LOVENOX 40 MG SC (17:03)
[2024-10-19 23:56] VITALS: BP 94/53
--- NOTE | 2024-10-20 02:00 | PTCARENOTE ---
Addendum entered by Karin Valencia RN 10/20/24 06:16:
Patient tolerating tube feedings at 10 ml/hr. Increased tube feed to 15ml/hr per MAILING SPECIALIST. Attempting to meet goal of 35ml/hr. Patient offers no current complaints.
Original Note:
After ambulating to bathroom, patient complaining of 'pressure' to J tube site. Patient stated his J tube site 'feels different than before'. Denies any pain. Small amount of yellow drainage noted to split gauze around the site. Tube feedings
increased at 2300 to 20ml/hr from 10ml/hr per order. MAILING SPECIALIST made aware, tube feedings decreased back to 10ml/hr at 0035 per MAILING SPECIALIST. Patient reports relief from pressure and states he is feeling better. Plan of care ongoing.
[2024-10-20] MEDS: ZOSYN 50 IV ×4 (05:10→23:00)
[2024-10-20 07:45] VITALS: BP 100/51
[2024-10-20] MEDS: PROTONIX IV 40 MG IV (08:03)
[2024-10-20] MEDS: NSS (PRESERVATIVE FREE) 10 ML IV (08:04)
[2024-10-20] MEDS: FLUSH (NSS) 1 FLUSH IV ×5 (08:04→18:10)
--- NOTE | 2024-10-20 08:22 | W.PN.GS2 ---
Addendum entered and electronically signed by Renato aPn MD 10/20/24 14:37:
I saw and examined the patient independently.
The resident's documentation was reviewed and I agree with the note, assessment and plan except where noted below.
Comment: This is a 44-year-old male status post J-tube placement last week complicated by dislodgment and tract enlargement by the balloon now with leaking around the tube. He is postoperative day 3 from a diagnostic lap confirming no
intra-abdominal issues and incision and drainage of a abdominal wall collection.
Okay to advance tube feeds to goal. Okay to advance to an oral diet though with limit the amount of p.o. intake as this will likely increase leaking from the tube site.
Will plan for 14-day course of antibiotics.
Change packing daily.
Surgical continue to follow.
Original Note:
Today's Communication / Plan
-
Plan reviewed with attending.
Assessment / Plan
-
44yoM with recurrent esophageal cancer with metastases, dysphagia, FTT, j tube placement 10/14/24 for feeding access POD #3 from j tube readjustment. J tube balloon was found lodged in the abdominal wall with findings of murky fluid cultured. No
concern for intraabdominal fluid leakage.
Vitals at baseline for him. Afebrile, incisions clean, dry, and intact. Expected drainage from j tube site.
Today, Mr. Calvo seems discouraged by current state of his healing and feelings of being stuck in the hospital. He reports nightmares and feelings of hopelessness but denies wanting to hurt himself. We discussed cancer support groups or therapy
options. He does not seem interested in this moment, stating that he 'just wants some normalcy again' and that groups will be 'downers' for him. He acknowledges this is the first time he has felt this negative since his initial diagnosis 4 years
ago. He is eager to have his normal diet once again and go back to work shortly, even though he is aware he may not perform heavy lifting right now.
Plan:
Reached out to oncology for mental health resources.
Advanced tube feeds per nutrition. Advance oral diet. We discussed with Mr. Calvo limiting oral intake while the j tube site heals to reduce upstream intake and leakage.
Continue current pain regimen
14 total days abx. IV zosyn. Cultures reveal gram negative bacilli and strep.
Change tube dressing daily.
Subjective Data
-
Date of Service: October 20, 2024
Mr. Calvo is physically feeling well today. He denies nausea, or vomiting. When he had PO clears yesterday, he had leakage from j tube site. Trickle feeds progressing well. Pt had incisional pain managed on current regimen. Denies abdominal
discomfort or bloating feelings.
Objective Data
-
Intake and Output
10/19/24 10/20/24 10/21/24
06:59 06:59 06:59
Intake Total 550 / 550
Output Total 1675 / 1675 975 / 975
Balance -1125 / -1125 -975 / -975
Intake:
IV fluids (Total) 500 / 500
IV piggybacks 50 / 50
Output:
Urine, Voided 1675 / 1675 975 / 975
Other:
Number of approximated MODERATE 2
amounts of urine
Vital Signs
Temp Pulse Resp BP Pulse Ox
97.8 F 60 18 94/53 95
10/19/24 23:56 10/19/24 23:56 10/19/24 23:56 10/19/24 23:56 10/19/24 23:56
Lab Results
10/19/24 05:31
10/19/24 05:31
Calcium 9.0 mg/dl (8.4-10.2) 10/19/24 05:31
Magnesium 2.0 mg/dl (1.6-2.3) 10/18/24 08:06
Total Bilirubin 0.7 mg/dl (0.2-1.3) 10/17/24 20:39
Direct Bilirubin 0.3 mg/dl (0.0-0.4) 10/17/24 20:39
AST 23 U/L (17-59) 10/17/24 20:39
ALT 21 U/L (0-50) 10/17/24 20:39
Alkaline Phosphatase 182 U/L (38-126) H 10/17/24 20:39
Total Protein 6.9 g/dl (6.3-8.2) 10/17/24 20:39
Albumin 4.1 g/dl (3.5-5.0) 10/17/24 20:39
Physical Exam
-
Vital signs reviewed.
General: Patient appears comfortable, laying in bed in no acute distress
Respiratory: No increased work of breathing.
CV: Stable rate. Bradycardic.
Abdomen: Soft, nondistended. Mild tenderness in the periumbilical area surrounding j tube. Tube in place.
Skin: Skin is warm. Surgical incisions are clean and intact.
Psych: tearful, somber
--- NOTE | 2024-10-20 09:37 | W.PN.HOSP.TC ---
Today's Communication/Plan
-
likely discharge
Assessment / Plan
Assessment / Plan
Physical Exam
General: not in respiratory distress
HEENT: Normocephalic, Anicteric and Moist mucous membranes
Respiratory: Clear and Other (Right ij Port-A-Cath); No Wheezes, Rales, Rhonchi or Crackles
Cardiac: S1/S2 and Regular Rhythm
GI: Peg tube, no worsening redness or tenderness
Rectal: no bleeding
Genito-urinary: No Simental
Musculoskeletal: No Clubbing, No Cyanosis and No Edema
Skin: Warm
Neuro: AO x 3 and Nonfocal/grossly intact
Psych: Calm
44-year-old with history of esophageal cancer status post treatment and now with recurrence of metastatic disease with mets to the liver and lungs pending aggressive chemo and status post elective J-tube placement will presents to the emergency
department with abdominal pain around the G-tube site and surrounding abdominal skin cellulitis.
# Tiny small left pneumothorax
Does not seem to have any clinical importance at this point. No hypoxia. No shortness of breath
Because of underlying pulmonary metastases. Will consult pulmonary for further input
# Abdominal wall abscess around peg tube / J tube malposition
s/p I & D of the abscess and Placing the tube with balloon/ properly seated by Dr Pan on 10/18
c/w IV Abx
started on mild feeding per surgery
Pain is resolving
WBC is around 25, leukocytosis secondary to GCSF +/- J tube site cellulitis
No fevers
Appreciate surgery & ID help
# hyponatremia, mild
No confusion
# Advanced esophageal cancer
Primary oncologist Dr Reeder
Anemia due to chemotherapy. Per oncology: anemia at baseline
# Possible left small pneumothorax, will repeat CT chest Vs chest x ray
No hypoxia
DVT prophylaxis�Lovenox subcu
CODE STATUS/DNR, confirmed with pt.
Total time spent to see the patient on the floor, examine the patient, review data and lab results, discuss treatment plan with patient, nursing staff around 55 minutes.
Anticipated Discharge: Within 24 hours
Subjective/Interval History
-
Date of Service: October 20, 2024
No sob
No worsening abd pain
Objective Data
-
Vital Signs:
Vital Signs
Temp Pulse Resp BP Pulse Ox
98.2 F 56 16 100/51 97
10/20/24 07:45 10/20/24 07:45 10/20/24 07:45 10/20/24 07:45 10/20/24 09:06
I&O
10/19/24 10/20/24 10/21/24
06:59 06:59 06:59
Intake Total 550 / 550
Output Total 1675 / 1675 975 / 975
Balance -1125 / -1125 -975 / -975
--- NOTE | 2024-10-20 11:13 | CON.PUL ---
Consultation
Consultation Request
Date/Time Consultation Requested: 10/20/2024-11:30 AM
Date/Time Consultation Performed: 10/20/2024-11:30 AM
Requesting Provider: Hospitalist
Performing Provider: Dr. Hernandez
Reason for Consultation: Pneumothorax
Medical History
-
Chief Complaint: Pneumothorax
History of Present Illness:
44-year-old former smoking male with history of esophageal cancer status post treatment and recurrence currently on chemotherapy status post jejunostomy tube placed 10/14/2024 and presented with pain around the G-tube noted to have abdominal wall
cellulitis and abscess underwent drainage procedure also evaluated by infectious disease and oncology and underwent CT chest noted to have incidental small left apical pneumothorax-pulmonary consulted for small pneumothorax 10/20/2024.. He denies
any shortness of breath, chest congestion, productive cough, pleurisy, his pain is controlled. He does not complain any focal weakness.
Past Medical History
Past Medical History: None (Esophageal cancer with recurrence and mets to the liver, lungs. Former smoker. 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 Jejunostomy tube placement October 14, 2024)
Social History
Tobacco: Former Smoker ( [id number], quit 2022)
Alcohol: None
Drug: None
Living: With Family
Occupational Exposures: No known asbestos exposure
Environmental Exposures: No known tuberculosis exposure
Family History
Family History: Reviewed & Not Pertinent
Allergies / Home Medications
Allergies
Allergy/AdvReac Type Severity Reaction Status Date / Time
No Known Allergies Allergy Verified 10/14/24 09:36
Home Medications
�Medication �Instructions �Recorded �Confirmed �Last Taken �Type
fam-trastuzumab deruxtecn-nxki 100 100 mg IV Q3W Cancer 04/13/24 10/14/24 10/12/24 History
mg intravenous solution (Enhertu)
fosaprepitant 150 mg intravenous 150 mg IV Q3W Nausea 04/13/24 10/14/24 10/12/24 History
powder for solution
ondansetron 8 mg disintegrating 8 mg PO Q12H PRN nausea 04/13/24 10/14/24 Unknown History
tablet
palonosetron 0.25 mg/5 mL 0.25 mg IV ONCE Nausea 04/13/24 10/14/24 10/12/24 History
intravenous syringe
fosaprepitant 150 mg intravenous 150 mg IV ONCE Nausea 10/14/24 10/14/24 10/12/24 History
powder for solution (Emend
(fosaprepitant))
acetaminophen 325 mg tablet 650 mg (2 x 325 mg) PO Q4HPRN PRN 10/15/24 10/18/24 Unknown Rx
mild pain #1 tab
tramadol 50 mg tablet 25 - 50 mg (0.5 - 1 x 50 mg) PO 10/15/24 10/18/24 Unknown Rx
Q6HPRN PRN severe
pain/breakthrough pain #5 tabs
Review of Systems
-
Unable to Obtain full review of systems at this time due to: Other ( Per HPI Per HPI)
Vitals / Labs / Diagnostic Testing
Vital Signs
Temp Pulse Resp BP Pulse Ox
98.2 F 56 16 100/51 97
10/20/24 07:45 10/20/24 07:45 10/20/24 07:45 10/20/24 07:45 10/20/24 09:06
Lab Data
10/19/24 05:31
10/19/24 05:31
Microbiology
10/18/24 14:22 Abdomen Wound Culture - Preliminary
Enterobacter cloacae complex
Streptococcus species
10/18/24 14:22 Abdomen Gram Stain - Preliminary
10/17/24 23:28 Blood/Venous Blood Culture - Preliminary
No Growth in 48 hours- Final report to follow
10/17/24 23:28 Blood/Venous Blood Culture - Preliminary
No Growth in 48 hours- Final report to follow
10/18/24 14:22 Abdomen Anaerobic Culture - Preliminary
Culture pending. Anaerobic cultures are examined after 3
days incubation. Additional information to follow.
10/18/24 04:33 Nose MRSA Screen - Final
No Methicillin Resistant Staphylococcus aureus isolated.
Diagnostic Testing:
Physical Exam
-
Exam:
Well-nourished and well-developed in no apparent distress
HEENT-atraumatic, normocephalic
Neck-supple, no JVD, no bruit
Heart-regular rate and rhythm-no murmurs, rubs or gallops
Chest-clear to auscultation, no wheezes, crackles
Back-no tenderness
Abdomen-soft, nontender, nondistended, no hepatosplenomegaly
Extremities-no cyanosis, clubbing, edema and good peripheral pulses
Integument-intact, no rashes, lesions or ecchymosis
Neurology-alert and oriented, nonfocal motor and sensory exam
Assessment
-
44-year-old former smoking male with history of esophageal cancer status post treatment and recurrence currently on chemotherapy status post jejunostomy tube placed 10/14/2024 and presented with pain around the G-tube noted to have abdominal wall
cellulitis and abscess underwent drainage procedure also evaluated by infectious disease and oncology and underwent CT chest noted to have incidental small left apical pneumothorax-pulmonary consulted for small pneumothorax 10/20/2024.
Pneumothorax-tiny left apical medial less than 1% incidental and asymptomatic
Leukocytosis.
Nbyirq-ezslvtqldc-clkzovixfd 10.1.
Mild hyponatremia.
Mild hyperglycemia.
Widely metastatic esophageal cancer.
Left diaphragmatic hernia with large bowel, abdominal contents
Conditions present prior to admission:
Esophageal cancer with recurrence and mets to the liver, lungs.
Former ashjyn-21-optq-year, quit 2022
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 Jejunostomy tube placement October 14, 2024
Plan
Respiratory status is quite stable.
CT chest was personally reviewed and reveals a very small left apical medial pneumothorax of unclear etiology-incidental and asymptomatic.
Patient is a former smoker for [id number]-[id number] smoking history, however, no history of emphysema or asthma, blebs.
Patient with esophageal resection-occasionally esophageal lesions can dissect and cause mediastinitis, etc.-once again, he is asymptomatic.
Patient has diaphragmatic hernia on the left with abdominal contents in his thorax-asymptomatic and no signs of obstruction, etc.
Would take observational approach, reassurance was provided. The patient, if he is increasing shortness of breath, fevers, chills, etc., then repeat imaging would be recommended.
Nebulizers if needed-currently not bronchospastic.
Incentive spirometry.
Cultures reviewed.
Empiric antibiotics.
Abscess drained
General surgery following.
Infectious disease following-correspondence reviewed.
2 feeds per surgery.
Oncology following-correspondence reviewed
Follow hemoglobin.
Transfuse if needed.
DVT prophylaxis-on Lovenox
GI prophylaxis-on pantoprazole.
Nutrition-tube feeds.
Bedside range of motion.
Reviewed with nursing and primary team
Diagnostic data:
Chest x-ray 02/21-herniation of the segment of the splenic flexure of the colon into the left lower hemithorax.
CT chest 02/02/24-no CT evidence for pulmonary bruising, large lesions within the liver which are grown significantly from previous scans and either elevation of the left hemidiaphragm or old left diaphragmatic hernia with large bowel and abdominal
contents within the left chest with subsequent compressive atelectasis.
CT chest, abdomen and pelvis 04/23/24-large hiatal hernia containing nonobstructed bowel, 1.3 cm nodule left upper lobe, previously 1.1 cm in 3 mm nodule right upper lobe, stable size of soft tissue nodule within the superior mediastinum, large left
diaphragmatic hernia, hepatic lesions.
CT abdomen, chest and pelvis 07/28/24-pulmonary metastases slightly increased in size and number, multiple hepatic metastases.
CT abdomen and pelvis 10/20/24-pulmonary nodule within the right lung compatible with pulmonary metastases, large hiatal hernia with distended loops of bowel in the left hemithorax. CT chest 10/20/24-tiny left apical medial pneumothorax, less than
1%, pulmonary nodules consistent with pulmonary metastatic disease. All increased in size, mediastinal lymphadenopathy associated with mild tracheal narrowing, hepatic lesions, right adrenal mass, moderate elevation of the diaphragm progressed,
nonobstructing right renal stone
Bone scan 04/26/24-no suspicious focal radiotracer activity to suggest osseous metastases.
Echocardiogram 09/21/24-EF 55-60%, no valvular disease, PA systolic 29
Data Reviewed
-
EKG: Report reviewed by me
Radiology: Image personally visualized and interpreted and Report reviewed by me
CT Scan: Image personally visualized and interpreted and Report reviewed by me
Medical Tests (Nuc Med, Echo etc): Report reviewed by me
Labs: Labs reviewed by me
Old Records: Reviewed
Total Time Spent with Patient (in minutes): 65
[2024-10-20] MEDS: ROXICODONE 5 MG PO (11:46)
--- NOTE | 2024-10-20 12:06 | W.PN.ID1 ---
Date of Service
Date of Service: October 20, 2024
Today's Communication
- Continue Zosyn
- At time of discharge, transition to Augmentin 875mg po bid and cipro 500mg po bid through 10/25.
Assessment / Plan
# Abdominal wall infection/cellulitis due to malpositioned jejunostomy tube with balloon in abd wall
# Leukocytosis stable
# Metastatic esophageal cancer on therapy
- 10/18 s/p OR repositioning of J-tube, drainage of abd wall murky fluid
Appreciate surgery; OR cx: Enterobacter cloacae, Strep species
- Continue Zosyn
- At time of discharge, transition to Augmentin 875mg po bid and cipro 500mg po bid through 10/25.
Chief Complaint
-: Cellulitis
Subjective / Review of Systems
c/o of J-tube leakage and burning sensation
Vital Signs / Physical Exam
Vital Signs
Vital Signs
Temp Pulse Resp BP Pulse Ox
98.2 F 56 16 100/51 97
10/20/24 07:45 10/20/24 07:45 10/20/24 07:45 10/20/24 07:45 10/20/24 09:06
Physical Exam
Constitutional: Non-toxic
Pulmonary: Clear
Gastrointestinal: Soft, Non Tender, Non Distended and Other (j tube dressing site wet strikethrough)
Neurological: AO x 3
Lines: Port (RCW no erythema)
Objective Data
Lab Data
Lab Results
10/19/24 05:31
10/19/24 05:31
Estimated Creat Clear > 125 ml/min 10/19/24 05:31
Lactic Acid 1.0 mmol/L (0.7-2.0) 10/17/24 23:28
Total Bilirubin 0.7 mg/dl (0.2-1.3) 10/17/24 20:39
AST 23 U/L (17-59) 10/17/24 20:39
ALT 21 U/L (0-50) 10/17/24 20:39
Alkaline Phosphatase 182 U/L (38-126) H 10/17/24 20:39
Most recent labs reviewed.
Micro Results:
10/18/24 14:22 Wound Culture - Preliminary
Abdomen Enterobacter cloacae complex
Streptococcus species
Gram Stain - Preliminary
10/17/24 23:28 Blood Culture - Preliminary
Blood/Venous No Growth in 48 hours- Final report to follow
10/17/24 23:28 Blood Culture - Preliminary
Blood/Venous No Growth in 48 hours- Final report to follow
10/18/24 14:22 Anaerobic Culture - Preliminary
Abdomen Culture pending. Anaerobic cultures are examined after 3
days incubation. Additional information to follow.
10/18/24 04:33 MRSA Screen - Final
Nose No Methicillin Resistant Staphylococcus aureus isolated.
10/18/24 CT a/p: Pulmonary nodules within the visualized right lung, compatible with pulmonary metastatic disease. Largest of these nodules in the inferior aspect of the right upper lobe has increased in size from previous CT examination. Large
hiatal hernia with distended loops of colon extending into the left hemithorax, increased from previous examination. Small foci of intraperitoneal air, which is likely from previous jejunostomy tube placement. There is probably a small anterior
left-sided pneumothorax. As warranted, consider further evaluation with CT of the chest. Soft tissue nodule within the posterior aspect of the hiatal hernia, decreased in size from prior examination, and probably a neoplastic implant with positive
response to therapy. Interval decrease in size of hepatic low-density lesions, compatible with positive response to therapy. Interval placement of jejunostomy tube, reportedly placed on October 14. There is air and edema within the anterior abdominal
wall subcutaneous soft tissues and musculature, compatible with postsurgical change and inflammation. No evidence for a well-defined abscess. Right adrenal gland mass compatible with metastatic disease.
--- NOTE | 2024-10-20 14:43 | CM ---
Reviewed chart. Continues on tube feeding + oral diet.Spoke with ASHU / Candy and Johana at [facility]. [facility] will need a script for tube feedings at the time of discharge. Continues with IV ABX for 14 days (ends 11/01/24), no script at this time
Plan: Home with tube feedings via [facility]. Resume care with VN
[2024-10-20 15:35] VITALS: BP 101/58
[2024-10-20] MEDS: DILAUDID 1 MG IV (15:48)
--- NOTE | 2024-10-20 16:23 | PTCARENOTE ---
Pt AAO x3, quiet/tearful at times; says he is 'disgusted' that 'I'm going through this again'. Emotional support given. WALKER well, OOB to BR; denies weakness/dizziness. VSS. On room air- pulse ox 94%, no SOB noted. Abd soft, sl rounded, tender
Lt lower abd/PEG site. Pt erick reg diet; reports no BM 'since before I came in.' Will give prn Senokat PO tab. Pt on Jevity 1.5 TF via PEG , currently @ 20 ml/hr, no c/o abd discomfort at present. Voids in BR without difficulty. Abd incision
sites IVÁN; still oozing small amts bile around PEG site at times; drain sponge around site. Incision on Lt abd/next to PEG tube packed with iodoform gauze as ordered, pt reports 'burning' at site; Dr. Colin in earlier to assess site. Rt ACW SC
port accessed/intact. Currently resting in bed. Will continue to monitor.
[2024-10-20] MEDS: SENOKOT-S 1 TABLET PO (16:30)
[2024-10-20] MEDS: LOVENOX 40 MG SC (17:23)
[2024-10-20] MEDS: ZOFRAN 4 MG IV (17:24)
[2024-10-20 23:19] VITALS: BP 94/59
[2024-10-21] MEDS: ZOSYN 50 IV ×4 (06:09→23:31)
[2024-10-21 07:30] VITALS: BP 88/61
--- NOTE | 2024-10-21 08:25 | W.PN.HOSP.TC ---
Today's Communication/Plan
-
.f/w surgery.
Assessment / Plan
Assessment / Plan
Physical Exam
General: not in respiratory distress
HEENT: Normocephalic, Anicteric and Moist mucous membranes
Respiratory: Clear and Other (Right ij Port-A-Cath); No Wheezes, Rales, Rhonchi or Crackles
Cardiac: S1/S2 and Regular Rhythm
GI: Peg tube, no worsening redness or tenderness
Rectal: no bleeding
Genito-urinary: No Simental
Musculoskeletal: No Clubbing, No Cyanosis and No Edema
Skin: Warm
Neuro: AO x 3 and Nonfocal/grossly intact
Psych: Calm
44-year-old with history of esophageal cancer status post treatment and now with recurrence of metastatic disease with mets to the liver and lungs pending aggressive chemo and status post elective J-tube placement will presents to the emergency
department with abdominal pain around the G-tube site and surrounding abdominal skin cellulitis.
# Tiny small left pneumothorax
Does not seem to have any clinical importance at this point. No hypoxia. No shortness of breath
Because of underlying pulmonary metastases. Appreciate pulmonary input, observation at this point.
# Abdominal wall abscess around peg tube / J tube malposition
s/p I & D of the abscess and Placing the tube with balloon/ properly seated by Dr Pan on 10/18
c/w IV Abx
started on tube feeding, seems to have leak
Pain is not significant
he tells me that he will need more appliances for home tube feeding.
WBC is around 25, leukocytosis secondary to GCSF +/- J tube site cellulitis
No fevers
Appreciate surgery & ID help
# hyponatremia, mild
No confusion
# Advanced esophageal cancer
Primary oncologist Dr Reeder. I d/w him, advanced disease and progressing despite Tx. Hospice candidate at this point but patient wants to continue treatment.
Anemia due to chemotherapy. Per oncology: anemia at baseline
# Possible left small pneumothorax, will repeat CT chest Vs chest x ray
No hypoxia
DVT prophylaxis�Lovenox subcu
CODE STATUS/DNR, confirmed with pt.
Total time spent to see the patient on the floor, examine the patient, review data and lab results, discuss treatment plan with patient, nursing staff around 55 minutes.
Anticipated Discharge: Within 24 hours
Subjective/Interval History
-
Date of Service: October 21, 2024
no abd pain
Still leak around Peg tube
Objective Data
-
Vital Signs:
Vital Signs
Temp Pulse Resp BP Pulse Ox
97.8 F 55 16 88/61 95
10/21/24 07:30 10/21/24 07:30 10/21/24 07:30 10/21/24 07:30 10/21/24 07:30
I&O
10/20/24 10/21/24 10/22/24
06:59 06:59 06:59
Intake Total 1055 / 1055
Output Total 975 / 975 725 / 725
Balance -975 / -975 330 / 330
[2024-10-21] MEDS: DILAUDID 1 MG IV (08:43)
[2024-10-21] MEDS: NSS (PRESERVATIVE FREE) 10 ML IV (08:46)
[2024-10-21] MEDS: PROTONIX IV 40 MG IV (08:46)
[2024-10-21 08:50] VITALS: BP 95/58
--- NOTE | 2024-10-21 08:50 | W.PN.ONC ---
Today's Communication / Plan
-
CT scan of the chest appreciated which appears to project progressive disease on current therapy
Discussed limited options for treatment
Discussed palliative care now progressing on HER2 directed therapy
He will follow-up in the office to ascertain whether are viable quality of life preserving therapeutic options
Monitor pneumothorax
Impression
Impression
metastatic esophageal cancer
a/w J tube cellulitis/abscess s/p J but removal 10/18
leukocytosis secondary to GCSF +/- J tube site cellulitis
anemia at baseline
Small pneumothorax possibly mediated by malignancy
Subjective/Objective
Subjective/Objective
Patient without discomfort. Reports occasional leak of tube feedings around the site.
Vital Signs:
Vital Signs
Temp Pulse Resp BP Pulse Ox
97.8 F 55 16 88/61 95
physical exam 10/21/24 07:30 10/21/24 07:30 10/21/24 07:30 10/21/24 07:30 10/21/24 07:30
Physical exam: Unchanged
Lab Results:
Laboratory Data
WBC 25.6 10^3/uL (4.8-10.8) H 10/19/24 05:31
Hgb 10.1 g/dL (13.0-18.0) L 10/19/24 05:31
Plt Count 214 10^3/uL (130-400) 10/19/24 05:31
eGFR > 60.00 10/19/24 05:31
--- NOTE | 2024-10-21 09:44 | W.PN.GS2 ---
Addendum entered and electronically signed by Renato Pan MD 10/21/24 14:28:
I saw and examined the patient independently.
The resident's note was reviewed and I agree with the note, assessment and plan except where noted below.
Comment: 44yoM with metastatic esophageal cancer status post J-tube placement last week complicated by dislodgment and tract enlargement by the balloon now with leaking around the tube. He is postoperative day 3 from a diagnostic lap confirming no
intra-abdominal issues and incision and drainage of a abdominal wall collection. Plan to advance tube feeds to goal.
Given ongoing leaking from around the tube I did encourage the patient to minimize the amount of p.o. intake. His tube however goes distally and we should be able to feed him at goal through that. Okay for liquid medications through the J-tube as
long as they are flushed often.
Continue changing packing daily.
Original Note:
Today's Communication / Plan
-
Plan reviewed with attending.
Assessment / Plan
-
44yoM with metastatic esophageal cancer status post J-tube placement last week complicated by dislodgment and tract enlargement by the balloon now with leaking around the tube. He is postoperative day 3 from a diagnostic lap confirming no
intra-abdominal issues and incision and drainage of a abdominal wall collection. Plan to advance tube feeds to goal.
Vitals at baseline for him. Afebrile, incisions clean, dry, and intact. Expected drainage from j tube site.
Mr. Calvo expressed interest in receiving information from oncology on cancer support groups and therapy options today.
Plan:
Defer to oncology for mental health resources.
Advanced tube feeds per nutrition. Continue oral diet as tolerated. Expect drainage from site as it heals.
Continue current pain regimen
14 total days abx. Can transition to PO antibiotics upon discharge per ID recommendations Augmentin 875mg BID and Cipro 500mg BID until 10/25. Due to continued leakage of PO intake, we would recommend liquid abx through j tube.
Change tube dressing daily.
Subjective Data
-
Date of Service: October 21, 2024
Mr. Calvo is doing well this morning. He had some nausea after consuming bowel regimen but denies unprovoked bouts of nausea or any vomiting. He is passing gas but no BM. He reports manageable incisional pain surrounding the tube. He minimized PO
intake yesterday but continued to have leakage from the site any time he did eat by mouth. No pain with meals.
Objective Data
-
Intake and Output
10/20/24 10/21/24 10/22/24
06:59 06:59 06:59
Intake Total 1055 / 1055
Output Total 975 / 975 725 / 725
Balance -975 / -975 330 / 330
Intake:
Oral fluids 600 / 600
IV piggybacks 150 / 150
Tube feeding 185 / 185
Feeding tube flush amount 120 / 120
Output:
Urine, Voided 975 / 975 725 / 725
Other:
Number of approximated MODERATE 2 3
amounts of urine
Vital Signs
Temp Pulse Resp BP Pulse Ox
97.8 F 54 16 95/58 95
10/21/24 07:30 10/21/24 08:50 10/21/24 07:30 10/21/24 08:50 10/21/24 07:30
Lab Results
10/19/24 05:31
10/19/24 05:31
Calcium 9.0 mg/dl (8.4-10.2) 10/19/24 05:31
Magnesium 2.0 mg/dl (1.6-2.3) 10/18/24 08:06
Total Bilirubin 0.7 mg/dl (0.2-1.3) 10/17/24 20:39
Direct Bilirubin 0.3 mg/dl (0.0-0.4) 10/17/24 20:39
AST 23 U/L (17-59) 10/17/24 20:39
ALT 21 U/L (0-50) 10/17/24 20:39
Alkaline Phosphatase 182 U/L (38-126) H 10/17/24 20:39
Total Protein 6.9 g/dl (6.3-8.2) 10/17/24 20:39
Albumin 4.1 g/dl (3.5-5.0) 10/17/24 20:39
Physical Exam
-
Vital signs reviewed.
General: Patient appears comfortable, laying in bed in no acute distress
Respiratory: No increased work of breathing.
CV: Stable rate. Bradycardic.
Abdomen: Soft, nondistended. Mild tenderness in the periumbilical area surrounding j tube. Tube in place with yellow leakage.
Skin: Skin is warm. Surgical incisions are clean and intact.
Psych: calm
--- NOTE | 2024-10-21 09:51 | W.PN.PUL.V3 ---
Today's Communication / Plan
-
Tiny pneumothorax without clinical significance at this point
Continue to monitor for symptoms and repeat imaging if necessary
Assessment
-
44-year-old former smoking male with history of esophageal cancer status post treatment and recurrence currently on chemotherapy status post jejunostomy tube placed 10/14/2024 and presented with pain around the G-tube noted to have abdominal wall
cellulitis and abscess underwent drainage procedure also evaluated by infectious disease and oncology and underwent CT chest noted to have incidental small left apical pneumothorax-pulmonary consulted for small pneumothorax 10/20/2024.
Pneumothorax-tiny left apical medial less than 1% incidental and asymptomatic
Leukocytosis.
Xkjwdo-[id number]-zvtqukxsnz 10.1.
Mild hyponatremia.
Mild hyperglycemia.
Widely metastatic esophageal cancer.
Left diaphragmatic hernia with large bowel, abdominal contents
Conditions present prior to admission:
Esophageal cancer with recurrence and mets to the liver, lungs.
Former [id number], quit 2022
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 Jejunostomy tube placement October 14, 2024
Plan
Respiratory status remains stable
CT chest was personally reviewed and reveals a very small left apical medial pneumothorax of unclear etiology-incidental and asymptomatic.
Patient is a former smoker for [id number] smoking history, however, no history of emphysema or asthma, blebs.
Patient with esophageal resection-occasionally esophageal lesions can dissect and cause mediastinitis, etc.-once again, he is asymptomatic.
Patient has diaphragmatic hernia on the left with abdominal contents in his thorax-asymptomatic and no signs of obstruction, etc.
Would take observational approach, reassurance was provided. The patient, if he is increasing shortness of breath, fevers, chills, etc., then repeat imaging would be recommended.
Nebulizers if needed-currently not bronchospastic.
Incentive spirometry.
Cultures reviewed.
Empiric antibiotics.
Abscess drained
General surgery following.
Infectious disease following-correspondence reviewed.
2 feeds per surgery.
Oncology following-correspondence reviewed
Follow hemoglobin.
Transfuse if needed.
DVT prophylaxis-on Lovenox
GI prophylaxis-on pantoprazole.
Nutrition-tube feeds.
Bedside range of motion.
Reviewed with nursing and primary team
Diagnostic data:
Chest x-ray 02/21-herniation of the segment of the splenic flexure of the colon into the left lower hemithorax.
CT chest 02/02/24-no CT evidence for pulmonary bruising, large lesions within the liver which are grown significantly from previous scans and either elevation of the left hemidiaphragm or old left diaphragmatic hernia with large bowel and abdominal
contents within the left chest with subsequent compressive atelectasis.
CT chest, abdomen and pelvis 04/23/24-large hiatal hernia containing nonobstructed bowel, 1.3 cm nodule left upper lobe, previously 1.1 cm in 3 mm nodule right upper lobe, stable size of soft tissue nodule within the superior mediastinum, large left
diaphragmatic hernia, hepatic lesions.
CT abdomen, chest and pelvis 07/28/24-pulmonary metastases slightly increased in size and number, multiple hepatic metastases.
CT abdomen and pelvis 10/20/24-pulmonary nodule within the right lung compatible with pulmonary metastases, large hiatal hernia with distended loops of bowel in the left hemithorax.
CT chest 10/20/24-tiny left apical medial pneumothorax, less than 1%, pulmonary nodules consistent with pulmonary metastatic disease. All increased in size, mediastinal lymphadenopathy associated with mild tracheal narrowing, hepatic lesions, right
adrenal mass, moderate elevation of the diaphragm progressed, nonobstructing right renal stone
Bone scan 04/26/24-no suspicious focal radiotracer activity to suggest osseous metastases.
Echocardiogram 09/21/24-EF 55-60%, no valvular disease, PA systolic 29
Subjective Data
-
Date of Service:
Date of Service: October 21, 2024
Chief Complaint: Pulmonary Follow Up, Dyspnea Follow Up and Other ( pneumothorax)
Subjective:
Patient without complaints of shortness of breath, pleurisy, chest congestion, productive cough, or chest pain
Review of Systems
General: Other (Per HPI)
Objective Data
Data Reviewed
Vital Signs / I&O:
Vital Signs
Temp Pulse Resp BP Pulse Ox
97.8 F 54 16 95/58 95
10/21/24 07:30 10/21/24 08:50 10/21/24 07:30 10/21/24 08:50 10/21/24 07:30
Intake and Output
10/20/24 10/21/24 10/22/24
06:59 06:59 06:59
Intake Total 1055 / 1055
Output Total 975 / 975 725 / 725
Balance -975 / -975 330 / 330
SaO2: 95
Nasal Cannula flow liters per minute: 2
Physical Exam
General: Respiratory Distress (n) and Comfortable
HEENT: Normocephalic, Anicteric and Moist Mucous Membranes
Cardiovascular: Regular Rhythm
Respiratory: Clear, Wheeze (n), Crackles, Rhonchi, Non-Labored Respirations, Accessory Resp Muscle Use (n) and Stridor (n)
GI: Soft, Non Distended, Non Tender and Feeding Tube
Neurology: Awake, Alert and No Motor Deficits
Skin: Warm, Good Color, Cyanosis (n), Jaundice (n) and Rash (n)
Labs/Micro/Reports
Lab Data
10/19/24 05:31
10/19/24 05:31
Microbiology
10/17/24 23:28 Blood/Venous Blood Culture - Preliminary
No Growth in 72 hours- Final report to follow
10/17/24 23:28 Blood/Venous Blood Culture - Preliminary
No Growth in 72 hours- Final report to follow
10/18/24 14:22 Abdomen Wound Culture - Preliminary
Enterobacter cloacae complex
Streptococcus species
10/18/24 14:22 Abdomen Gram Stain - Preliminary
10/18/24 14:22 Abdomen Anaerobic Culture - Preliminary
Culture pending. Anaerobic cultures are examined after 3
days incubation. Additional information to follow.
10/18/24 04:33 Nose MRSA Screen - Final
No Methicillin Resistant Staphylococcus aureus isolated.
[2024-10-21 10:37] VITALS: BP 124/66; PULSE 74; O2SAT 97
--- NOTE | 2024-10-21 10:51 | PTOTSP ---
Pt presents to OT with good UB AROM and strength and grossly intact cognition. Did endorse occasional 'chemo brain.' Discussed strategies to compensate for occasional problems with STM. Currently pt is at mod I/I level for basic self care, transfers
and functional mobility without AD. Encouraged pt to seek out outpatient OT if problems with 'chemo brain' interfere with daily function. No further skilled OT indicated at this time.
--- NOTE | 2024-10-21 13:51 | OR.RPT ---
Operative Report
Operative Report
Patient Name: Art Calvo
: 01/23/1971
Date of Operation: 10/18/2024
Preoperative Diagnosis: Abdominal wall abscess
Postoperative Diagnosis: Same
Procedure(s):
Diagnostic Laparoscopy
Incision and drainage of an abdominal wall abscess
Surgeon(s):
Dr. Pan
Refueler(s):
None
Anesthesia: General
Estimated Blood Loss: 3 cc
Urine Output: None
Drains/Lines/Implants: Half inch iodoform packing
Specimens:
1. Abdominal wall fluid for culture
HPI/Surgical Indications:
This is a 44-year-old male postop day 4 from a laparoscopic J-tube placement who presents with abdominal pain, and pus from around his J-tube site concerning for possible leakage. His CT scan was concerning for an abdominal wall abscess but no
intra-abdominal pathology was identified. Risks/Benefits/Alternatives were discussed at length, and the patient agreed to proceed with surgery.
Operative Findings: While prepping the patient it was clear that his tube had been pulled back such that the balloon was in the abdominal wall. The balloon was deflated with leaking of succus around the tube. The J-tube was then readvanced and
reinflated, pulled back with subsequent cessation of the leakage. The abdomen was then prepped and draped in the usual fashion. His prior infraumbilical port site was reopened and safe entry was accomplished. The abdomen appeared pristine as did
the J-tube site, there is no evidence of intra-abdominal leakage. The balloon was deflated and then reinflated with 3.5 cc of saline and ensured to be seated properly. We then turned our attention to the abdominal wall. His prior thoracic
abdominal incision was opened about 2 inches lateral to the tube and dissected down into the abdominal wall to the level of the rectus sheath and passed and connected to towards the opening of the tube site. There was some murky appearing fluid
here which was cultured. This wound was packed with a half-inch iodoform packing strip
Procedure Description:
The patient was brought to the Operating Room and placed in the supine position with the arms tucked. IV antibiotics were infused and Venodyne stockings placed. Following uneventful induction of general endotracheal anesthesia the abdomen was
prepped and draped in the usual sterile fashion with Betadine. It was clear that the tube adductor been pulled back such that the balloon was in the abdominal wall and had dilated the tract around the J-tube causing the leakage of succus and and
pus. The J-tube was then readvanced and reinflated, pulled back with subsequent cessation of the leakage. His prior infraumbilical site was reincised and a 12 mm port was replaced into the abdomen. Pneumoperitoneum was established and we
confirmed that no injury occurred during our entry. A brief diagnostic laparoscopy was performed which confirmed no intra-abdominal spillage or leakage of contents and that the site was surprisingly well-healed just 4 days out from surgery. The
balloon was deflated and then reinflated with 3.5 cc sterile water to confirm that it was seated correctly. Pneumoperitoneum was evacuated and the incision was then closed with a [id number] 0 PDS suture. The skin was closed with a 4-0
Monocryl followed by glue. We then turned our attention to the abdominal wall. His prior thoracoabdominal incision was incised 2 inches lateral to the J-tube site and using curved hemostat we dissected the subcutaneous and fascial tissue to the
level of the J-tube site. We did encounter some purulent appearing fluid which was cultured. The wound was then packed with half inch iodoform packing strip and covered with gauze. Overall, the patient tolerated the procedure well and was taken to
the Recovery Room postoperatively in stable condition.
I was the attending physician and performed the procedure with no assistance. I was present for all portions of the case
Renato Pan MD
--- NOTE | 2024-10-21 15:05 | W.PN.ID1 ---
Date of Service
Date of Service: October 21, 2024
Today's Communication
At time of discharge, transition to Augmentin 875mg po bid and cipro 500mg po bid through 10/25.
Assessment / Plan
# Abdominal wall infection/cellulitis due to malpositioned jejunostomy tube with balloon in abd wall
# Leukocytosis stable
# Metastatic esophageal cancer on therapy
- 10/18 s/p OR repositioning of J-tube, drainage of abd wall murky fluid
OR cx: Enterobacter cloacae, Strep species
- Continue Zosyn
- At time of discharge, transition to Augmentin 875mg po bid and cipro 500mg po bid through 10/25.
Chief Complaint
-: Cellulitis
Subjective / Review of Systems
No leakage from J tube today.
Vital Signs / Physical Exam
Vital Signs
Vital Signs
Temp Pulse Resp BP Pulse Ox
97.8 F 54 16 95/58 95
10/21/24 07:30 10/21/24 08:50 10/21/24 07:30 10/21/24 08:50 10/21/24 09:51
Physical Exam
Constitutional: Non-toxic
Pulmonary: Clear
Gastrointestinal: Soft, Non Tender, Non Distended and Other (j tube dressing dry)
Neurological: AO x 3
Lines: Port (RCW no erythema)
Objective Data
Lab Data
Lab Results
10/19/24 05:31
10/19/24 05:31
Estimated Creat Clear > 125 ml/min 10/19/24 05:31
Lactic Acid 1.0 mmol/L (0.7-2.0) 10/17/24 23:28
Total Bilirubin 0.7 mg/dl (0.2-1.3) 10/17/24 20:39
AST 23 U/L (17-59) 10/17/24 20:39
ALT 21 U/L (0-50) 10/17/24 20:39
Alkaline Phosphatase 182 U/L (38-126) H 10/17/24 20:39
Most recent labs reviewed.
Micro Results:
10/18/24 14:22 Anaerobic Culture - Preliminary
Abdomen Culture pending. Anaerobic cultures are examined after 3
days incubation. Additional information to follow.
10/17/24 23:28 Blood Culture - Preliminary
Blood/Venous No Growth in 72 hours- Final report to follow
10/17/24 23:28 Blood Culture - Preliminary
Blood/Venous No Growth in 72 hours- Final report to follow
10/18/24 14:22 Wound Culture - Preliminary
Abdomen Enterobacter cloacae complex
Streptococcus species
Gram Stain - Preliminary
10/18/24 04:33 MRSA Screen - Final
Nose No Methicillin Resistant Staphylococcus aureus isolated.
10/18/24 CT a/p: Pulmonary nodules within the visualized right lung, compatible with pulmonary metastatic disease. Largest of these nodules in the inferior aspect of the right upper lobe has increased in size from previous CT examination. Large
hiatal hernia with distended loops of colon extending into the left hemithorax, increased from previous examination. Small foci of intraperitoneal air, which is likely from previous jejunostomy tube placement. There is probably a small anterior
left-sided pneumothorax. As warranted, consider further evaluation with CT of the chest. Soft tissue nodule within the posterior aspect of the hiatal hernia, decreased in size from prior examination, and probably a neoplastic implant with positive
response to therapy. Interval decrease in size of hepatic low-density lesions, compatible with positive response to therapy. Interval placement of jejunostomy tube, reportedly placed on October 14. There is air and edema within the anterior abdominal
wall subcutaneous soft tissues and musculature, compatible with postsurgical change and inflammation. No evidence for a well-defined abscess. Right adrenal gland mass compatible with metastatic disease.
[2024-10-21 15:35] VITALS: BP 139/64
[2024-10-21] MEDS: LOVENOX 40 MG SC (17:29)
[2024-10-21 23:18] VITALS: BP 98/61
[2024-10-22] MEDS: ZOSYN 50 IV (06:02)
[2024-10-22 07:38] VITALS: BP 93/63
--- NOTE | 2024-10-22 08:12 | W.PN.HOSP.TC ---
Addendum entered and electronically signed by Karena Donaldson MD 10/22/24 14:16:
addendum
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
home set up is done
pt requested pain medicine script, given Tramadol script, aware of precautions, not to drive or operate machine while taking tramadol
total discharge time spent to see the pt, review data and lab results, discuss dc plan with pt, surgery, nursing staff around 67 minutes
Addendum entered and electronically signed by Karena Donaldson MD 10/22/24 09:04:
Addendum
Received update from surgery the patient can go home today. Will work on his discharge
End
Original Note:
Today's Communication/Plan
-
Will remain in hospital until surgery clears him to go pending bile leak
Assessment / Plan
Assessment / Plan
Physical Exam
General: not in respiratory distress
HEENT: Normocephalic, Anicteric and Moist mucous membranes
Respiratory: Clear and Other (Right ij Port-A-Cath); No Wheezes, Rales, Rhonchi or Crackles
Cardiac: S1/S2 and Regular Rhythm
GI: J- tube, less leak, no worsening redness or tenderness
Rectal: no bleeding
Genito-urinary: No Simental
Musculoskeletal: No Clubbing, No Cyanosis and No Edema
Skin: Warm
Neuro: AO x 3 and Nonfocal/grossly intact
Psych: Calm
44-year-old with history of esophageal cancer status post treatment and now with recurrence of metastatic disease with mets to the liver and lungs pending aggressive chemo and status post elective J-tube placement will presents to the emergency
department with abdominal pain around the G-tube site and surrounding abdominal skin cellulitis.
# Tiny small left pneumothorax
Does not seem to have any clinical importance at this point. No hypoxia. No shortness of breath
Because of underlying pulmonary metastases. Appreciate pulmonary input, observation at this point.
# Abdominal wall abscess around peg tube / J tube malposition
s/p I & D of the abscess and Placing the tube with balloon/ properly seated by Dr Pan on 10/18
on IV Abx, expect him to finish course in hospital on 10/25
started on tube feeding, seems to have bile leak but less.
Pain is not significant
he tells me that he will need more appliances for home tube feeding.
WBC is around 25, leukocytosis secondary to GCSF +/- J tube site cellulitis
No fevers
Appreciate surgery & ID help
# hyponatremia, mild
No confusion
# Advanced esophageal cancer
Primary oncologist Dr Reeder. I d/w him, advanced disease and progressing despite Tx. Hospice candidate at this point but patient wants to continue treatment.
Anemia due to chemotherapy. Per oncology: anemia at baseline
# Possible left small pneumothorax, will repeat CT chest Vs chest x ray
No hypoxia
DVT prophylaxis�Lovenox subcu
CODE STATUS/DNR, confirmed with pt.
Total time spent to see the patient on the floor, examine the patient, review data and lab results, discuss treatment plan with patient, nursing staff around 55 minutes.
Anticipated Discharge: > 48 hours
Subjective/Interval History
-
Date of Service: October 22, 2024
No chest pain
No sob
No abdominal pain
Less leak noted
Objective Data
-
Vital Signs:
Vital Signs
Temp Pulse Resp BP Pulse Ox
98.3 F 65 18 98/61 97
10/21/24 23:18 10/21/24 23:18 10/21/24 23:18 10/21/24 23:18 10/21/24 23:18
I&O
10/21/24 10/22/24 10/23/24
06:59 06:59 06:59
Intake Total 1055 / 1055 580 / 580
Output Total 725 / 725 1425 / 1425
Balance 330 / 330 -845 / -845
--- NOTE | 2024-10-22 08:14 | W.PN.GS2 ---
Addendum entered and electronically signed by Aniket Colin MD 10/22/24 12:32:
I was physically present and personally performed the araujo portions of the surgical evaluation and/or procedure with the resident. I discussed the findings, reviewed the resident�s note, and confirmed the medical decision-making. I provided direct
supervision as required and agree with the assessment and plan as documented with the following additions/corrections:
Improving. Slight excoriation around tube. No erythema or purulent drainage from I&D site. Cont abx per ID. OK for DC with VN from surgical standpoint.
Original Note:
Today's Communication / Plan
-
Plan reviewed with attending
Assessment / Plan
-
44yoM with metastatic esophageal cancer status post J-tube placement last week complicated by dislodgment and tract enlargement by the balloon now with leaking around the tube. He is postoperative day 4 from a diagnostic lap confirming no
intra-abdominal issues and incision and drainage of a abdominal wall collection. Tube feeds at goal ml.
Vitals at baseline for him. Afebrile, incisions clean, dry, and intact. Expected drainage from j tube site, reduced food output from incision.
Plan:
Tube feeds per nutrition. Continue oral diet as tolerated. Expect drainage from site as it heals.
Continue current pain regimen
14 total days abx. Can transition to PO antibiotics upon discharge per ID recommendations Augmentin 875mg BID and Cipro 500mg BID until 10/25.
Change tube dressing daily.
Subjective Data
-
Date of Service: October 22, 2024
Mr. Calvo is feeling well today. Denies nausea, vomiting, chills, fevers. He has not yet had a BM but continues to pass gas. He reports reduced output from the j tube site after meals. We discussed concern for j tube leakage of medication with
transition to PO medication on discharge, but he reports that he has not noticed any pills that he is taking the hospital from leaking.
Objective Data
-
Intake and Output
10/21/24 10/22/24 10/23/24
06:59 06:59 06:59
Intake Total 1055 / 1055 580 / 580
Output Total 725 / 725 1425 / 1425
Balance 330 / 330 -845 / -845
Intake:
Oral fluids 600 / 600 480 / 480
IV piggybacks 150 / 150 100 / 100
Tube feeding 185 / 185
Feeding tube flush amount 120 / 120
Output:
Urine, Voided 725 / 725 1425 / 1425
Other:
Number of approximated MODERATE 3
amounts of urine
Vital Signs
Temp Pulse Resp BP Pulse Ox
98.3 F 65 18 98/61 97
10/21/24 23:18 10/21/24 23:18 10/21/24 23:18 10/21/24 23:18 10/21/24 23:18
Lab Results
10/19/24 05:31
10/19/24 05:31
Calcium 9.0 mg/dl (8.4-10.2) 10/19/24 05:31
Magnesium 2.0 mg/dl (1.6-2.3) 10/18/24 08:06
Total Bilirubin 0.7 mg/dl (0.2-1.3) 10/17/24 20:39
Direct Bilirubin 0.3 mg/dl (0.0-0.4) 10/17/24 20:39
AST 23 U/L (17-59) 10/17/24 20:39
ALT 21 U/L (0-50) 10/17/24 20:39
Alkaline Phosphatase 182 U/L (38-126) H 10/17/24 20:39
Total Protein 6.9 g/dl (6.3-8.2) 10/17/24 20:39
Albumin 4.1 g/dl (3.5-5.0) 10/17/24 20:39
Physical Exam
-
Vital signs reviewed.
General: Patient appears comfortable, laying in bed in no acute distress
Respiratory: No increased work of breathing.
CV: Stable rate. Bradycardic.
Abdomen: Soft, nondistended. Mild tenderness in the periumbilical area surrounding j tube. Tube in place with yellow leakage and excoriation
Skin: Skin is warm. Surgical incisions are clean and intact.
Psych: calm
[2024-10-22] MEDS: PROTONIX IV 40 MG IV (08:28)
[2024-10-22] MEDS: NSS (PRESERVATIVE FREE) 10 ML IV (08:28)
--- NOTE | 2024-10-22 09:21 | W.PN.PUL.V3 ---
Today's Communication / Plan
-
Patient is asymptomatic currently from a pulmonary perspective-repeat radiographs if becomes symptomatic, increase shortness of breath, etc.-possibility of pneumothorax enlarging and requiring therapy noted-currently stable pulmonary will sign
off-please call with questions
Assessment
-
44-year-old former smoking male with history of esophageal cancer status post treatment and recurrence currently on chemotherapy status post jejunostomy tube placed 10/14/2024 and presented with pain around the G-tube noted to have abdominal wall
cellulitis and abscess underwent drainage procedure also evaluated by infectious disease and oncology and underwent CT chest noted to have incidental small left apical pneumothorax-pulmonary consulted for small pneumothorax 10/20/2024.
Pneumothorax-tiny left apical medial less than 1% incidental and asymptomatic
Leukocytosis.
Pqyxhp-[id number]-jmlkpoymtd 10.1.
Mild hyponatremia.
Mild hyperglycemia.
Widely metastatic esophageal cancer.
Left diaphragmatic hernia with large bowel, abdominal contents
Conditions present prior to admission:
Esophageal cancer with recurrence and mets to the liver, lungs.
Former [id number], quit 2022
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 Jejunostomy tube placement October 14, 2024
Plan
Respiratory status remains stable
CT chest was personally reviewed and reveals a very small left apical medial pneumothorax of unclear etiology-incidental and asymptomatic, possibly mediated by malignancy
Patient is a former smoker for [id number] smoking history, however, no history of emphysema or asthma, blebs.
Patient with esophageal resection-occasionally esophageal lesions can dissect and cause mediastinitis, etc.-once again, he is asymptomatic.
Patient has diaphragmatic hernia on the left with abdominal contents in his thorax-asymptomatic and no signs of obstruction, etc.
Would take observational approach, reassurance was provided. The patient, if he is increasing shortness of breath, fevers, chills, etc., then repeat imaging would be recommended.
Nebulizers if needed-currently not bronchospastic.
Incentive spirometry.
Cultures reviewed.
Empiric antibiotics.
Abscess drained
General surgery following-correspondence reviewed
Infectious disease following-correspondence reviewed.
Tube feeds per surgery.
Oncology following-correspondence reviewed
Follow hemoglobin.
Transfuse if needed.
DVT prophylaxis-on Lovenox
GI prophylaxis-on pantoprazole.
Nutrition-tube feeds.
Bedside range of motion.
Patient is asymptomatic currently from a pulmonary perspective-repeat radiographs if becomes symptomatic, increase shortness of breath, etc.-possibility of pneumothorax enlarging and requiring therapy noted-currently stable pulmonary will sign
off-please call with questions
Reviewed with nursing and primary team
Diagnostic data:
Chest x-ray 02/21-herniation of the segment of the splenic flexure of the colon into the left lower hemithorax.
CT chest 02/02/24-no CT evidence for pulmonary bruising, large lesions within the liver which are grown significantly from previous scans and either elevation of the left hemidiaphragm or old left diaphragmatic hernia with large bowel and abdominal
contents within the left chest with subsequent compressive atelectasis.
CT chest, abdomen and pelvis 04/23/24-large hiatal hernia containing nonobstructed bowel, 1.3 cm nodule left upper lobe, previously 1.1 cm in 3 mm nodule right upper lobe, stable size of soft tissue nodule within the superior mediastinum, large left
diaphragmatic hernia, hepatic lesions.
CT abdomen, chest and pelvis 07/28/24-pulmonary metastases slightly increased in size and number, multiple hepatic metastases.
CT abdomen and pelvis 10/20/24-pulmonary nodule within the right lung compatible with pulmonary metastases, large hiatal hernia with distended loops of bowel in the left hemithorax.
CT chest 10/20/24-tiny left apical medial pneumothorax, less than 1%, pulmonary nodules consistent with pulmonary metastatic disease. All increased in size, mediastinal lymphadenopathy associated with mild tracheal narrowing, hepatic lesions, right
adrenal mass, moderate elevation of the diaphragm progressed, nonobstructing right renal stone
Bone scan 04/26/24-no suspicious focal radiotracer activity to suggest osseous metastases.
Echocardiogram 09/21/24-EF 55-60%, no valvular disease, PA systolic 29
Subjective Data
-
Date of Service:
Date of Service: October 22, 2024
Chief Complaint: Pulmonary Follow Up, Dyspnea Follow Up and Other ( pneumothorax)
Subjective:
No complaints of shortness of breath, chest pain, productive cough, pleurisy, tolerating feeds
Review of Systems
General: Other ( per HPI)
Objective Data
Data Reviewed
Vital Signs / I&O:
Vital Signs
Temp Pulse Resp BP Pulse Ox
97.8 F 64 16 93/63 99
10/22/24 07:38 10/22/24 07:38 10/22/24 07:38 10/22/24 07:38 10/22/24 07:38
Intake and Output
10/21/24 10/22/24 10/23/24
06:59 06:59 06:59
Intake Total 1055 / 1055 580 / 580
Output Total 725 / 725 1425 / 1425
Balance 330 / 330 -845 / -845
SaO2: 99
Nasal Cannula flow liters per minute: 2
Physical Exam
General: Respiratory Distress (n) and Comfortable
HEENT: Normocephalic, Anicteric and Moist Mucous Membranes
Cardiovascular: Regular Rhythm
Respiratory: Clear, Wheeze (n), Crackles, Rhonchi, Non-Labored Respirations, Accessory Resp Muscle Use (n) and Stridor (n)
GI: Soft, Non Distended, Non Tender and Feeding Tube
Neurology: Awake, Alert and No Motor Deficits
Skin: Warm, Good Color, Cyanosis (n), Jaundice (n) and Rash (n)
Labs/Micro/Reports
Lab Data
10/19/24 05:31
10/19/24 05:31
Microbiology
10/17/24 23:28 Blood/Venous Blood Culture - Preliminary
No Growth in 4 days- Final report to follow
10/17/24 23:28 Blood/Venous Blood Culture - Preliminary
No Growth in 4 days- Final report to follow
10/18/24 14:22 Abdomen Anaerobic Culture - Preliminary
Culture pending. Anaerobic cultures are examined after 3
days incubation. Additional information to follow.
10/18/24 14:22 Abdomen Wound Culture - Preliminary
Enterobacter cloacae complex
Streptococcus species
10/18/24 14:22 Abdomen Gram Stain - Preliminary
10/18/24 04:33 Nose MRSA Screen - Final
No Methicillin Resistant Staphylococcus aureus isolated.
[2024-10-22] MEDS: DILAUDID 1 MG IV (10:03)
--- NOTE | 2024-10-22 10:36 | CM ---
Spoke with Johana from [facility] re tube feeds, just need script faxed.;
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
--- NOTE | 2024-10-22 10:50 | W.DCSUMMARY ---
Discharge Summary
Discharge Data
Date of Admission: 10/18/24
Date of Discharge: 10/22/24
-
Pending Results: No
Hospital Course
44 years old male presented with abdominal wall pain and discomfort with swelling around J-tube. Patient was found to have dislodgment of J-tube with abdominal wall abscess. He was taken to the OR with incision and drainage and reinsertion of
J-tube. Wound culture showed Enterobacter cloacae, Strep species. Patient continued to have bile leak through the J-tube incision. Subsequently, bile leak decreased and surgery followed the progress. Patient was followed by ID for IV
antibiotics. Blood culture did not show any growth. His white count continued to be elevated secondary to recent stimulating factor. Patient has advanced progressive esophageal cancer. He was followed by oncologist. He was getting treatment for
his cancer but progression was noted by his oncologist. Plan to follow-up in the office with oncology. Imaging studies showed incidental left tiny pneumothorax. Patient did not have respiratory symptoms or hypoxia. Pulmonary doctor recommended
observation at this point. Patient was evaluated by hospice case manager. He remained hemodynamically stable. Surgery recommended outpatient follow-up and cleared the patient for discharge. Patient was discharged home with home health services in a
stable condition.
Discharge Plan
-
Patient Disposition: Home with Home Care
Discharge Diagnosis/Procedures: J-tube dislodgement status post laparoscopic repositioning with incision and drainage of abdominal wall abscess.
Potential side effects of antibiotics include
Augmentin, GI symptoms/skin rash
Ciprofloxacin, tendinitis, GI symptoms. Stop ciprofloxacin if you encounter joint pain
- Follow-up with Dr. Reeder for treatment options
Diet: Regular and Tube feeding
Additional Diets: TwoCal HN at 50ml/hr between 9pm to 9am. Flush with 300ml of water at the beginning and end of feedings.
Activity: No strenuous activity
Additional Activity: Do not lift over 15lbs for the next 2-3 weeks
Bathing Restrictions: OK to Shower
Other Services: [facility]
Wound Care: Allow the glue to flake off your laparoscopic incisions on its own.
Replace the 1/4 inch iodoform packing strip to the wound in your upper left abdomen daily and cover with clean gauze pad.
Underneath your J-tube place a Coloplast brava stoma sheath (4x4 in size) under the bumper to protect the skin. Change every 3 days and as needed. Cover with absorbent pad to absorb drainage which you should change daily or more often if needed.
Referrals:
Jey Reeder DO [Active, Hematology / Oncology] - in two to three weeks
Stfean Stafford DO [Family Provider, Family Practice]
Renato Pan MD [Active, Surgical] - in two weeks
Prescriptions:
New
amoxicillin-pot clavulanate 875-125 mg tablet
1 tab PO BID Qty: 6 0RF
ciprofloxacin HCl [Cipro] 500 mg tablet
500 mg PO Q12H Qty: 4 0RF
tramadol 50 mg tablet
50 mg PO DAILYPRN PRN (Reason: severe pain) Qty: 10 0RF
Continued
ondansetron 8 mg Tablet,Disintegrating
8 mg PO Q12H PRN (Reason: nausea)
acetaminophen 325 mg tablet
650 mg PO Q4HPRN PRN (Reason: mild pain) Qty: 1 0RF
Discontinued
fosaprepitant 150 mg Recon Soln
150 mg IV Q3W
palonosetron 0.25 mg/5 mL Syringe
0.25 mg IV ONCE
Enhertu 100 mg Recon Soln
100 mg IV Q3W
fosaprepitant [Emend (fosaprepitant)] 150 mg Recon Soln
150 mg IV ONCE
tramadol 50 mg tablet
25 - 50 mg PO Q6HPRN PRN (Reason: severe pain/breakthrough pain) Qty: 5 0RF
Rx Instructions:
PER PT HE TAKES 1/2 TAB & RECENTLY 50MG
Discharge Orders:
Discharge Patient (As Directed); Ordered 10/22/24
Ordered By: Karena Donaldson
Discharge Date and Time
Discharge Date/Time: 10/22/24 14:11
Print Language: KOREAN
--- NOTE | 2024-10-22 11:26 | VNURNOTE ---
Confirmed patient is for DC today. He is aware [facility] will contact him for resumption of care visit for tomorrow.
[2024-10-22 12:20] VITALS: BP 98/63
--- NOTE | 2024-10-22 12:31 | CM ---
Patient has been medically cleared for discharge to home with [facility] RN and [facility] services for feeds. Patient's sister--in-law will transport patient home.
--- NOTE | 2024-10-22 13:27 | W.PN.ID1 ---
Date of Service
Date of Service: October 22, 2024
Today's Communication
Transition to Augmentin 875mg po bid and cipro 500mg po bid through 10/25.
ID will sign off.
Assessment / Plan
# Abdominal wall infection/cellulitis due to malpositioned jejunostomy tube with balloon in abd wall
# Leukocytosis stable
# Metastatic esophageal cancer on therapy
- 10/18 s/p OR repositioning of J-tube, drainage of abd wall murky fluid
OR cx: Enterobacter cloacae, Strep species
- DC Zosyn
-Transition to Augmentin 875mg po bid and cipro 500mg po bid through 10/25.
- ID isacc sign off.
Chief Complaint
-: Cellulitis
Subjective / Review of Systems
No new complaints.
Vital Signs / Physical Exam
Vital Signs
Vital Signs
Temp Pulse Resp BP Pulse Ox
97.9 F 67 16 98/63 99
10/22/24 12:20 10/22/24 12:20 10/22/24 12:20 10/22/24 12:20 10/22/24 12:20
Physical Exam
Constitutional: Non-toxic
Pulmonary: Clear
Gastrointestinal: Soft, Non Tender, Non Distended and Other (j tube dressing dry)
Neurological: AO x 3
Lines: Port (RCW no erythema)
Objective Data
Lab Data
Lab Results
10/19/24 05:31
10/19/24 05:31
Estimated Creat Clear > 125 ml/min 10/19/24 05:31
Lactic Acid 1.0 mmol/L (0.7-2.0) 10/17/24 23:28
Total Bilirubin 0.7 mg/dl (0.2-1.3) 10/17/24 20:39
AST 23 U/L (17-59) 10/17/24 20:39
ALT 21 U/L (0-50) 10/17/24 20:39
Alkaline Phosphatase 182 U/L (38-126) H 10/17/24 20:39
Most recent labs reviewed.
Micro Results:
10/18/24 14:22 Anaerobic Culture - Preliminary
Abdomen Culture pending. Anaerobic cultures are examined after 3
days incubation. Additional information to follow.
10/17/24 23:28 Blood Culture - Preliminary
Blood/Venous No Growth in 4 days- Final report to follow
10/17/24 23:28 Blood Culture - Preliminary
Blood/Venous No Growth in 4 days- Final report to follow
10/18/24 14:22 Wound Culture - Preliminary
Abdomen Enterobacter cloacae complex
Streptococcus species
Gram Stain - Preliminary
10/18/24 04:33 MRSA Screen - Final
Nose No Methicillin Resistant Staphylococcus aureus isolated.
10/18/24 CT a/p: Pulmonary nodules within the visualized right lung, compatible with pulmonary metastatic disease. Largest of these nodules in the inferior aspect of the right upper lobe has increased in size from previous CT examination. Large
hiatal hernia with distended loops of colon extending into the left hemithorax, increased from previous examination. Small foci of intraperitoneal air, which is likely from previous jejunostomy tube placement. There is probably a small anterior
left-sided pneumothorax. As warranted, consider further evaluation with CT of the chest. Soft tissue nodule within the posterior aspect of the hiatal hernia, decreased in size from prior examination, and probably a neoplastic implant with positive
response to therapy. Interval decrease in size of hepatic low-density lesions, compatible with positive response to therapy. Interval placement of jejunostomy tube, reportedly placed on October 14. There is air and edema within the anterior abdominal
wall subcutaneous soft tissues and musculature, compatible with postsurgical change and inflammation. No evidence for a well-defined abscess. Right adrenal gland mass compatible with metastatic disease.
== END 2024-10-22 14:11 | disposition home health service (06) | DRG 345 ==
LOC: 4 EAST ACU 01:55
PROVIDERS: Emergency Medicine; Registered Nurse; ADMITTING PHYSICIAN Internal Medicine; ATTENDING PHYSICIAN Internal Medicine; CONSULT PHYSICIAN Internal Medicine Critical Care Medicine; CONSULT PHYSICIAN Internal Medicine Infectious Disease; EMERGENCY PHYSICIAN Emergency Medicine; FAMILY PHYSICIAN Family Medicine; OTHER PHYSICIAN Internal Medicine Hematology & Oncology; OTHER PHYSICIAN Surgery
PROC: 0DHA4UZ Insertion of Feeding Device into Jejunum, Percutaneous Endoscopic Approach (ICD-10-PCS; 2024-10-15)
PROC: 0DPD4UZ Removal of Feeding Device from Lower Intestinal Tract, Percutaneous Endoscopic Approach (ICD-10-PCS; 2024-10-15)
DX: K94.12 Enterostomy infection (principal); C15.9 Malignant neoplasm of esophagus, unspecified; L02.211 Cutaneous abscess of abdominal wall; T85.628A Displacement of other specified internal prosthetic devices, implants and grafts, initial encounter; C78.00 Secondary malignant neoplasm of unspecified lung; C78.7 Secondary malignant neoplasm of liver and intrahepatic bile duct; J93.83 Other pneumothorax; E87.1 Hypo-osmolality and hyponatremia; L03.311 Cellulitis of abdominal wall; Y73.2 Prosthetic and other implants, materials and accessory gastroenterology and urology devices associated with adverse incidents; D64.81 Anemia due to antineoplastic chemotherapy; K44.9 Diaphragmatic hernia without obstruction or gangrene; K59.00 Constipation, unspecified; R13.10 Dysphagia, unspecified; R62.7 Adult failure to thrive; Z80.3 Family history of malignant neoplasm of breast; Z80.8 Family history of malignant neoplasm of other organs or systems; Z87.891 Personal history of nicotine dependence; Z90.49 Acquired absence of other specified parts of digestive tract
CPT/HCPCS: 71250; 74177; 80048; 80076; 83605; 83690; 83735; 85025; 85027; 87040; 87070; 87075; 87077; 87186; 87205; 92610; 96365; 96366; 96375; 97161; 97165; 99285; Q9967

== ENCOUNTER → 2024-11-03 16:05 | Outpatient (REF) | payer OTHER, SELFPAY ==
[2024-11-03 17:21] LABS: Hematocrit 36.9 % (39.0-52.0); Hemoglobin 12.0 g/dL (13.0-18.0); Mean Corp Hgb Conc. 32.5 g/dL (33.0-37.0); Mean Corpuscular Volume 91.3 fL (80.0-94.0); Nucleated Red Blood Cells % 0 % (-); Platelet Count 373 10^3/uL (130-400); Red Cell Dist. Width 17.6 % (11.5-14.5)
[2024-11-03 17:47] LABS: ALT (SGPT) 75 U/L (0-50); AST (SGOT) 50 U/L (17-59); Albumin 3.7 g/dl (3.5-5.0); Alkaline Phosphatase 140 U/L (38-126); Blood Urea Nitrogen 13 mg/dl (9-20); Calcium 9.0 mg/dl (8.4-10.2); Carbon Dioxide 28 mmol/L (22-30); Chloride 103 mmol/L (98-107); Glucose 105 mg/dl (70-99); Potassium 4.8 mmol/L (3.5-5.1); Sodium 138 mmol/L (135-145); Total Protein 5.9 g/dl (6.3-8.2); eGFR > 60.00
[2024-11-03 18:18] LABS: TSH 3.88 uIU/ml (0.47-4.68)
== END ==
LOC: REG 16:05
PROVIDERS: ATTENDING PHYSICIAN Internal Medicine Hematology & Oncology; FAMILY PHYSICIAN Family Medicine
DX: C15.5 Malignant neoplasm of lower third of esophagus (principal); C78.7 Secondary malignant neoplasm of liver and intrahepatic bile duct; D50.9 Iron deficiency anemia, unspecified; D70.1 Agranulocytosis secondary to cancer chemotherapy
CPT/HCPCS: 36415; 80053; 84443; 85025

== ENCOUNTER 2024-11-04 01:12 | Emergency (ER) | payer OTHER, SELFPAY ==
[2024-11-04] VITALS (9 sets, daily range): BP systolic 109–150; BP diastolic 70–83
[2024-11-04 01:15] LABS: Glucose - Point of Care 141 mg/dl (70-99)
--- NOTE | 2024-11-04 01:20 | EDRN ---
0115 stroke alert called
[2024-11-04 01:23] LABS: Hematocrit 36.7 % (39.0-52.0); Hemoglobin 12.3 g/dL (13.0-18.0); Mean Corp Hgb Conc. 33.5 g/dL (33.0-37.0); Mean Corpuscular Volume 88.6 fL (80.0-94.0); Nucleated Red Blood Cells % 0 % (-); Platelet Count 390 10^3/uL (130-400); Red Cell Dist. Width 17.5 % (11.5-14.5)
[2024-11-04 01:36] LABS: INR 0.97; PT 13.4 Sec (11.4-14.6)
[2024-11-04 01:37] LABS: ALT (SGPT) 62 U/L (0-50); APTT 25.6 Sec (23.4-35.0); AST (SGOT) 49 U/L (17-59); Albumin 3.8 g/dl (3.5-5.0); Alkaline Phosphatase 175 U/L (38-126); Blood Urea Nitrogen 12 mg/dl (9-20); Calcium 9.1 mg/dl (8.4-10.2); Carbon Dioxide 22 mmol/L (22-30); Chloride 103 mmol/L (98-107); Glucose 148 mg/dl (70-99); Potassium 3.2 mmol/L (3.5-5.1); Sodium 135 mmol/L (135-145); Total Protein 6.0 g/dl (6.3-8.2); eGFR > 60.00
--- NOTE | 2024-11-04 02:07 | EDRN ---
Pt increasingly more drowsy and diaphoretic. NIH being completed continuously, speech is significantly slurred, slow, and garbled. Pending transfer to [place]
[2024-11-04] MEDS: DECADRON 10 MG IV (02:32)
--- NOTE | 2024-11-04 04:35 | ED.CVA ---
History of Present Illness
General
Chief Complaint: CVA/TIA Symptoms
Source: patient and ambulance crew
Exam Limitations: altered mental status
Time Seen by Provider: 11/04/24 01:14
Nursing documentation reviewed up to this point in time: agreed with
Onset of Stroke Symptoms
Onset of symptoms known: Yes
Date of onset of symptoms: 11/03/24
Time of onset of symptoms: 23:00
History of Present Illness
History of Present Illness:
Note:
CHIEF COMPLAINT(S)
Altered mental status and headache.
HISTORY OF PRESENT ILLNESS
The patient is a 44-year-old male presenting with altered mental status and headache. He was reportedly communicative and complaining of a headache while en route in the emergency medical services. Subsequently, he became less responsive, although
he remains awake and consistently indicates pain in his head when questioned. Despite his altered mental status, he retains movement of all extremities. He has a significant medical history of esophageal cancer, for which he has undergone
chemotherapy and radiation therapy.
PAST MEDICAL AND SURIGICAL HISTORY
The patient has a history of esophageal cancer, gastrointestinal cancer, and a gastrointestinal bleed. He has received treatment for cancer in the form of chemotherapy and radiation.
CHRONIC MEDICAL CONDITIONS SIGNIFICANTLY AFFECTING CARE
Esophageal cancer.
SOCIAL HISTORY
The patient is a former smoker.
PROBLEM LIST
Acute:
- Altered mental status
- Headache
Chronic:
- Esophageal cancer
DIFFERENTIAL DIAGNOSIS
The Differential Diagnosis includes, in no particular order and is not limited to:
- Metastatic brain lesions
- Intracranial hemorrhage
- Medication reaction or side effect
- Infection (e.g., meningitis, encephalitis)
- Metabolic disturbances (e.g., hyponatremia, hypercalcemia)
- Stroke or transient ischemic attack
- Toxic exposure
- Seizure disorder
- Dehydration
- Hypoxia or respiratory insufficiency.
CARE-UPDATE
11/04/24 - 02:16
CT head revealed hemorrhage in the left cerebellum with vasogenic edema, mild midline shift, and mass effect. No definite mass noted on CT without contrast. Following neurosurgical consultation, the patient consented to transfer to [place] [facility] for further management. Anticipated surgical intervention discussed and agreed upon.
EKG
My independent EKG interpretation is:
- Time of EKG: Not provided in the affiliate manager.
- Rhythm: Sinus bradycardia
- Heart Rate: 48 bpm
- QRS Duration: Normal
- CA Interval: Normal
- QT Interval: Normal
- [place]: Not mentioned
- Abnormalities: None mentioned
Disposition:
SUMMARY OF ENCOUNTER
The patient, a 44-year-old male with a history of esophageal cancer, presented to the emergency department with altered mental status and headache. Initial examination revealed he was communicative but became less responsive, though he indicated
persistent head pain. A CT head scan revealed hemorrhage in the left cerebellum with vasogenic edema and mild midline shift with no definite mass. Given these findings, the decision was made to transfer the patient to [facility] for further
management, potentially including surgical intervention.
DISPOSITION
Transfer to [facility] for further management.
ASSESSMENT
The patient presented with altered mental status and headache, likely attributed to an intracranial hemorrhage in the cerebellum as revealed by CT imaging. This necessitates further evaluation and potential surgical intervention due to the risk of
neurological deterioration.
MANAGEMENT OF THE PATIENTS CARE WAS DISCUSSED WITH
The neurosurgical team at [facility]. A detailed consultation was conducted regarding the patients condition, and an agreement was reached on transferring the patient for advanced care.
PLAN
Transfer the patient to [facility] for advanced neurosurgical evaluation and potential intervention. The plan for surgical management was discussed and agreed upon with the patient before transfer.
INDEPENDENT REVIEW OF LABS AND INTERPRETATION OF TESTS
- My independent interpretation of the CT head scan revealed hemorrhage in the left cerebellum with vasogenic edema and mild midline shift, necessitating further surgical evaluation.
MEDICAL DECISION MAKING
- Number and Complexity of Problems Addressed: Chronic conditions affecting care include esophageal cancer. Differential diagnosis list includes metastatic brain lesions, intracranial hemorrhage, medication reaction, infection, metabolic
disturbances, stroke, toxic exposure, seizure disorder, dehydration, hypoxia.
- Data:
Category 1: My independent interpretation of the CT scan confirmed intracranial hemorrhage.
Category 3: Management was discussed with the neurosurgical team at [facility] due to the complexity and risk associated with the patients condition.
- Risk: High risk due to the presence of an intracranial hemorrhage, decision to transfer for potential surgical intervention indicates the severity of the condition.
DIAGNOSIS
Intracranial hemorrhage (ICD-10 code: I61.9).
Past History
Past History
ED Past Medical History: Cancer (Distal esophagus and gastric with partial esophagectomy and gastrectomy in March 2021. 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
Social History
Tobacco: Former smoker
Alcohol: Occasional
Personal: Single
Living: alone
Employment: Employed
Family History
Family History: Other (Noncontributory)
Review of Systems
Review of Systems
Allergies reviewed?: Yes
All Other Systems: Not applicable
Constitutional: Reports no symptoms
EENT: Reports no symptoms
Respiratory: Reports no symptoms
Cardiac: Reports no symptoms
ABD/GI: Reports no symptoms
: Reports no symptoms
Musculoskeletal: Reports no symptoms
Skin: Reports no symptoms
Neurological: Reports headache
Endocrine: Reports no symptoms
Hematologic/Lymphatic: Reports no symptoms
Psychiatric: Reports no symptoms
Phy Exam
Physical Exam
Physical Exam:
Physical Exam
General: Appears uncomfortable, moderate distress
Neck: supple. no meningeal signs. normal posterior pharynx
Heart: s1/s2 bradycardia, no murmur. equal radial
pulses.
HEENT: Pupils equal round reactive to light, rightward gaze palsy
Lungs: no acute respiratory distress. clear bilaterally
Abdomen: normal bowel sounds. not tender. no CVAT, feeding tube
Neuro: alert and oriented. Moves all extremities, rightward gaze palsy
Skin: no rash
Psychiatric: well kept. interactive and cooperative
Extremities: no edema. no calf tenderness. negative homans. good distal pulses
She
Course
Orders/Labs/Results
Orders:
Orders
11/04/24 01:14
Cardiac Monitoring- Treatment ONCE
Pulse Ox/cont/shift [RESP] Stat
Quantity: 1
11/04/24 01:15
Electrocardiogram (*1) Stat
Reason for Study: Other
Other Reason for Exam: neuro symptoms
EKG- Treatment ONCE
11/04/24 01:16
Complete Blood Count/With Diff Urgent
Comprehensive Metabolic Panel Urgent
PTT Urgent
Prothrombin Time Urgent
11/04/24 01:17
CT HEAD STROKE ALERT W/o Cont Urgent
Comment:
Reason For Exam: headache, right gaze palsy, altered mental status
IV Insert/Care/Rem.- Treatment PRN
11/04/24 01:57
Dexamethasone Sod Phosphate [Decadron] 10 mg IV NOW STA
11/04/24 02:09
CT Head Angio W/wo Iv Contrast Urgent
Comment:
Reason For Exam: altered mental status
11/04/24 04:08
CT Head W/o Iv Contrast Urgent
Comment:
Reason For Exam: altered mental status, intracranial hemorrhage
11/04/24 Breakfast
NPO
Allow oral meds: No
Allow clear liquids: No
Abnormal Lab Results
11/04/24 11/04/24
01:14 01:16
WBC 13.5 H 10^3/uL
(4.8-10.8)
RBC 4.14 L 10^6/uL
(4.70-6.10)
Hgb 12.3 L g/dL
(13.0-18.0)
Hct 36.7 L %
(39.0-52.0)
RDW 17.5 H %
(11.5-14.5)
Abs Immat Gran (auto) 0.1 H 10^3/uL
(0-0.05)
Absolute Neuts (auto) 9.3 H 10^3/uL
(1.4-6.5)
Absolute Monos (auto) 0.9 H 10^3/uL
(0.1-0.6)
Immature Gran % 0.9 H %
(0-0.5)
Lymphocytes % 20.0 L %
(20.5-51.1)
Potassium 3.2 L D mmol/L
(3.5-5.1)
Creatinine 0.6 L mg/dL
(0.7-1.3)
Glucose 148 H mg/dl
(70-99)
ALT 62 H U/L
(0-50)
Alkaline Phosphatase 175 H U/L
(38-126)
Total Protein 6.0 L g/dl
(6.3-8.2)
POC Glucose 141 H mg/dl
(70-99)
11/04/24 01:16
11/04/24 01:16
Vital Signs
Initial and Last Documented VS:
Initial Vital Signs
BP
137/79
11/04/24 01:15
Last Documented Vital Signs
Temp Pulse Resp BP Pulse Ox
97.6 F 45 17 137/76 98
11/04/24 03:38 11/04/24 03:45 11/04/24 03:45 11/04/24 03:42 11/04/24 02:10
MDM/Problems Addressed
Differential Diagnosis Includes:
CVA, intracranial hemorrhage, brain metastasis
MDM/Problems Addressed:
44-year-old male with intracranial hemorrhage. Increasing confusion and drowsiness throughout evaluation. Discussed with neurosurgery at [facility], Dr. Mota, who accepts patient in transfer. Patient given IV Decadron. Air transport.
*Pulse Oximetry
SaO2: 98
Oxygen Mode of Delivery: Room air
Patient hypoxic: no
*Critical Care Note
Total Time (30-74mins, 75-104mins- exclusive of procedures): 81
comment:
Critical care statement: A total of 81 minutes of critical care time was provided for this patient. This includes management of unstable vital signs, evaluation of the patient at bedside, reviewing the patient's pertinent medical records, discussion
with consultants, review of old EKGs and review of pertinent medical records. This time with separate from time utilized to perform the aforementioned documented procedures
ED Attending Note
-
Portions of this chart may have been created with voice recognition software.� Occasional wrong word or��sound alike� substitutions may have occurred due to the inherent limitations of voice recognition software.
Discharge Plan
Departure
Patient Disposition: [facility]
Date of Disposition: 11/04/24
Time of Disposition: 01:58
Patient with high blood pressure during this ER visit?: Yes
Condition: Fair
Discharge Problem:
Left-sided nontraumatic intracerebral hemorrhage of cerebellum, Malignant neoplasm of esophagus, unspecified
Prescriptions:
No Action
ondansetron 8 mg Tablet,Disintegrating
8 mg PO Q12H PRN (Reason: nausea)
acetaminophen 325 mg tablet
650 mg PO Q4HPRN PRN (Reason: mild pain) Qty: 1 0RF
amoxicillin-pot clavulanate 875-125 mg tablet
1 tab PO BID Qty: 6 0RF
ciprofloxacin HCl [Cipro] 500 mg tablet
500 mg PO Q12H Qty: 4 0RF
tramadol 50 mg tablet
50 mg PO DAILYPRN PRN (Reason: severe pain) Qty: 10 0RF
Referrals:
Stefan Stafford, DO [Family Provider, [facility]]
Hospital Transfer
Other hospital: [facility]
I certify that the patient requires transfer: Yes
Discussed case with accepting physician: Enoch
Reason for transfer: higher level of care and specialties available
Interventions
Interventions:
*Risk Screen - Suicide Last Done: 11/04/24 02:10
*General Assessment Last Done: 11/04/24 01:50
*Neglect/Abuse Screening Last Done: 11/04/24 01:50
*ED- Fall Risk Assessment Last Done: 11/04/24 01:50
*ED COVID-19 Vaccine History Last Done: 11/04/24 01:50
ED- Pulmonary Assessment Last Done: 11/04/24 02:10
ED- Neurological Assessment Last Done: 11/04/24 04:31
ED- Cardiac Assessment Last Done: 11/04/24 02:10
ED Swallowing Screen Last Done: 11/04/24 01:50
Discharge Date and Time
Print Language: ICELANDIC
== END 2024-11-04 04:44 | disposition short-term general hospital (02) ==
LOC: EMR 01:12
PROVIDERS: EMERGENCY PHYSICIAN Emergency Medicine; FAMILY PHYSICIAN Family Medicine
DX: C15.9 Malignant neoplasm of esophagus, unspecified (principal); I61.4 Nontraumatic intracerebral hemorrhage in cerebellum; R03.0 Elevated blood-pressure reading, without diagnosis of hypertension; R13.10 Dysphagia, unspecified; F32.A Depression, unspecified; C78.00 Secondary malignant neoplasm of unspecified lung; C78.7 Secondary malignant neoplasm of liver and intrahepatic bile duct; Z87.891 Personal history of nicotine dependence; Z92.21 Personal history of antineoplastic chemotherapy; Z90.49 Acquired absence of other specified parts of digestive tract; Z90.3 Acquired absence of stomach [part of]
CPT/HCPCS: 99291; 99292; 96374; 70450; 70496; 80053; 82962; 85025; 85610; 85730; 93005; Q9967

== ENCOUNTER → 2024-12-07 14:11 | Outpatient (REF) | payer OTHER, SELFPAY ==
[2024-12-07 15:09] LABS: Hematocrit 39.7 % (39.0-52.0); Hemoglobin 13.3 g/dL (13.0-18.0); Mean Corp Hgb Conc. 33.5 g/dL (33.0-37.0); Mean Corpuscular Volume 89.6 fL (80.0-94.0); Nucleated Red Blood Cells % 0 % (-); Platelet Count 201 10^3/uL (130-400); Red Cell Dist. Width 13.7 % (11.5-14.5)
[2024-12-07 16:10] LABS: ALT (SGPT) 148 U/L (0-50); AST (SGOT) 102 U/L (17-59); Albumin 4.0 g/dl (3.5-5.0); Alkaline Phosphatase 288 U/L (38-126); Blood Urea Nitrogen 20 mg/dl (9-20); Calcium 9.4 mg/dl (8.4-10.2); Carbon Dioxide 25 mmol/L (22-30); Chloride 100 mmol/L (98-107); Glucose 152 mg/dl (70-99); Potassium 4.7 mmol/L (3.5-5.1); Sodium 132 mmol/L (135-145); Total Protein 6.3 g/dl (6.3-8.2); eGFR > 60.00
== END ==
LOC: REG 14:11
PROVIDERS: ATTENDING PHYSICIAN Internal Medicine Hematology & Oncology; FAMILY PHYSICIAN Family Medicine
DX: C15.5 Malignant neoplasm of lower third of esophagus (principal); C78.7 Secondary malignant neoplasm of liver and intrahepatic bile duct; D50.9 Iron deficiency anemia, unspecified; D70.1 Agranulocytosis secondary to cancer chemotherapy
CPT/HCPCS: 36415; 80053; 84443; 85025

== ENCOUNTER 2024-12-16 13:10 | Inpatient (IN) | payer OTHER, SELFPAY ==
[2024-12-16] VITALS (13 sets, daily range): BP systolic 86–105; BP diastolic 61–75
--- NOTE | 2024-12-16 08:38 | ED.GENMED ---
History of Present Illness
<Jaret Driscoll PA-C - Last Filed: 12/16/24 10:35>
General
Chief Complaint: Catheter/Tube Problem
Time Seen by Provider: 12/16/24 08:18
History of Present Illness
History of Present Illness:
44-year-old male with history of esophageal cancer status post gastrectomy, recent craniotomy due to intracranial hemorrhage presents to the emergency department for evaluation of pain and leaking at his J-tube site. J-tube was placed in September
preemptively should patient require tube feeds while undergoing immunotherapy. Shortly after placement the tube had infectious complications and since that time has had difficulty with localized cellulitis and fungal infections. He is currently on
daily nystatin powder. He states that whenever he ingests some food and liquids, particularly acidic food, his site will leak and cause intense pain. He was given 1 feeding through the tube while hospitalized for his intracranial hemorrhage at
[facility] and he states this caused severe intense pain and leakage. He has been in communication with his general surgeon who requested him to come to the hospital for removal. He denies fevers or chills. Denies any pain at present
Past History
<Jaret Driscoll PA-C - Last Filed: 12/16/24 10:35>
Past History
ED Past Medical History: Cancer (Distal esophagus and gastric with partial esophagectomy and gastrectomy in March 2021. 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
Social History
Tobacco: Former smoker
Alcohol: Occasional
Personal: Single
Living: alone
Employment: Employed
Family History
Family History: Other (Noncontributory)
Review of Systems
<Jaret Driscoll PA-C - Last Filed: 12/16/24 10:35>
Review of Systems
Allergies reviewed?: Yes
All Other Systems: ROS reviewed and negative except as documented in HPI and ROS
Phy Exam
<Jaret Driscoll PA-C - Last Filed: 12/16/24 10:35>
Physical Exam
Physical Exam:
GEN: Well appearing, NAD, WDWN
HEENT: Oral mucosa moist, no scleral icterus
Cardiac: Regular rate
Lung: No respiratory distress, no tachypnea
Abdomen: Soft, flat, grossly nontender, J-tube site to the left abdomen with mild skin breakdown but no overt evidence of fungal infection or cellulitis, no active leakage noted
MSK: No gross deformity or injuries
Skin: Good color, no pallor or jaundice, no rashes
Neuro: AO x3, moves all extremities freely
Psych: Calm, cooperative
Course
<Jaret Driscoll PA-C - Last Filed: 12/16/24 10:35>
Orders/Labs/Results
Orders:
Orders
12/16/24 Breakfast
NPO
Allow oral meds: Yes
Allow clear liquids: No
NPO
Allow oral meds: No
Allow clear liquids: No
12/16/24 08:43
Admit Patient As Directed
Co-Sign Provider:
Level of Care: Inpatient admission
Assign to:: Medical/Surgical
Physician / Group: Dr. Pan
Diagnosis: Leaking jejunostomy tube
Reason for Hospitalization: Leaking jejunostomy tube
Expected length of stay greater than two midnights?: Yes
ELOS- Estimated Length of Stay in days: 5
I certify the patient meets the requirements for IP care: Yes
Code Status As Directed
Resuscitation Status: Full Code
HYDROmorphone [Dilaudid] 0.5 mg IV Q2HPRN PRN
Ondansetron Injectable [Zofran] 4 mg IV Q6HPRN PRN
Activity As Directed
Activity Level: Out of Bed-Early Mobility
Intake/ Output As Directed
Frequency: Per unit guidelines
Vital Signs As Directed
Frequency: Per unit guidelines
PRN Pain Medication Management As Directed
May give lesser potent ordered pain med per pt: Yes
preference::
Protocol:: Medication orders for pain may be administered in a
manner that supports deferring to patient preference
when the pt is:
- Requesting an ordered lesser potent pain medication.
Least to most potent pain medications are defined
as: acetaminophen < NSAID < tramadol < opioids
(morphine, oxycodone, hydromorphone).
- Requesting a lesser dose of the same medication IF
ORDERED.
- Requesting a less intrusive route of administration
if both routes are prescribed by the provider (PO <
IV).
DX Deep Vein Thrombosis Video Routine
12/16/24 08:45
Normosol (Mult Electrolytes) [Normosol-R/Plasmalyte-A] 1,000 ml IV 75 mls/hr
12/16/24 09:00
Flush (0.9% Sodium Chloride) [Flush (Nss)] See Dose Instructions IV PER PROTOCOL
12/16/24 09:04
Complete Blood Count/No Diff Urgent
Comprehensive Metabolic Panel Urgent
12/16/24 10:25
Fentanyl Citrate/Pf [Sublimaze] 25 mcg IV [id number] PRN
HYDROmorphone [Dilaudid] 0.25 mg IV PACU-Q5MPRN PRN
HYDROmorphone [Dilaudid] 0.5 mg IV PACU-Q5MPRN PRN
Ondansetron Injectable [Zofran] 4 mg IV PACU-ONCEPRN PRN
Prochlorperazine [Compazine] 5 mg IV PACU-ONCEPRN PRN
Notify MD As Directed
Notify physician if: for SDS patients with known or suspected sleep obstructive sleep apnea, monitor in the
PACU.
Notify MD for any apneic/desaturation episodes
O2 Therapy [RESP] Urgent
Titrate/Wean O2 to maintain O2 sat greater than (%): 92
Special Instructions: -Provide supplemental oxygen to achieve O2 sat of 92% or greater.
-After 15 min, may wean O2 and discontinue if patient is able to maintain O2 sat of 92%
or greater during recovery period.
If patient is a discharge home, without oxygen therapy, notify anestheiologist if
unable to maintain O2 SAT of 92% or greater on room air for MD clearance.
12/16/24 10:30
Normosol (Mult Electrolytes) [Normosol-R/Plasmalyte-A] 1,000 ml IV PER PROTOCOL
12/16/24 18:00
Enoxaparin Sodium [Lovenox] 40 mg SC QPM
Abnormal Lab Results
12/16/24
09:04
WBC 4.6 L 10^3/uL
(4.8-10.8)
RBC 3.91 L 10^6/uL
(4.70-6.10)
Hgb 11.6 L g/dL
(13.0-18.0)
Hct 34.2 L %
(39.0-52.0)
Sodium 132 L mmol/L
(135-145)
Creatinine 0.5 L mg/dL
(0.7-1.3)
ALT 74 H U/L
(0-50)
Alkaline Phosphatase 193 H U/L
(38-126)
Total Protein 5.8 L g/dl
(6.3-8.2)
12/16/24 09:04
12/16/24 09:04
Vital Signs
Initial and Last Documented VS:
Initial Vital Signs
Temp Pulse Resp BP Pulse Ox
97.8 F 102 18 102/71 99
12/16/24 08:11 12/16/24 08:11 12/16/24 08:11 12/16/24 08:11 12/16/24 08:11
Last Documented Vital Signs
Temp Pulse Resp BP Pulse Ox
97.8 F 57 16 95/65 97
12/16/24 08:11 12/16/24 10:00 12/16/24 10:00 12/16/24 09:58 12/16/24 09:57
<Isabella Kirby, DO - Last Filed: 12/16/24 10:05>
Orders/Labs/Results
Orders:
Orders
12/16/24 Breakfast
NPO
Allow oral meds: Yes
Allow clear liquids: No
NPO
Allow oral meds: No
Allow clear liquids: No
12/16/24 08:43
Admit Patient As Directed
Co-Sign Provider:
Level of Care: Inpatient admission
Assign to:: Medical/Surgical
Physician / Group: Dr. Pan
Diagnosis: Leaking jejunostomy tube
Reason for Hospitalization: Leaking jejunostomy tube
Expected length of stay greater than two midnights?: Yes
ELOS- Estimated Length of Stay in days: 5
I certify the patient meets the requirements for IP care: Yes
Code Status As Directed
Resuscitation Status: Full Code
HYDROmorphone [Dilaudid] 0.5 mg IV Q2HPRN PRN
Ondansetron Injectable [Zofran] 4 mg IV Q6HPRN PRN
Activity As Directed
Activity Level: Out of Bed-Early Mobility
Intake/ Output As Directed
Frequency: Per unit guidelines
Vital Signs As Directed
Frequency: Per unit guidelines
PRN Pain Medication Management As Directed
May give lesser potent ordered pain med per pt: Yes
preference::
Protocol:: Medication orders for pain may be administered in a
manner that supports deferring to patient preference
when the pt is:
- Requesting an ordered lesser potent pain medication.
Least to most potent pain medications are defined
as: acetaminophen < NSAID < tramadol < opioids
(morphine, oxycodone, hydromorphone).
- Requesting a lesser dose of the same medication IF
ORDERED.
- Requesting a less intrusive route of administration
if both routes are prescribed by the provider (PO <
IV).
DX Deep Vein Thrombosis Video Routine
12/16/24 08:45
Normosol (Mult Electrolytes) [Normosol-R/Plasmalyte-A] 1,000 ml IV 75 mls/hr
12/16/24 09:00
Flush (0.9% Sodium Chloride) [Flush (Nss)] See Dose Instructions IV PER PROTOCOL
12/16/24 09:04
Complete Blood Count/No Diff Urgent
Comprehensive Metabolic Panel Urgent
12/16/24 10:25
Fentanyl Citrate/Pf [Sublimaze] 25 mcg IV [id number] PRN
HYDROmorphone [Dilaudid] 0.25 mg IV PACU-Q5MPRN PRN
HYDROmorphone [Dilaudid] 0.5 mg IV PACU-Q5MPRN PRN
Ondansetron Injectable [Zofran] 4 mg IV PACU-ONCEPRN PRN
Prochlorperazine [Compazine] 5 mg IV PACU-ONCEPRN PRN
Notify MD As Directed
Notify physician if: for SDS patients with known or suspected sleep obstructive sleep apnea, monitor in the
PACU.
Notify MD for any apneic/desaturation episodes
O2 Therapy [RESP] Urgent
Titrate/Wean O2 to maintain O2 sat greater than (%): 92
Special Instructions: -Provide supplemental oxygen to achieve O2 sat of 92% or greater.
-After 15 min, may wean O2 and discontinue if patient is able to maintain O2 sat of 92%
or greater during recovery period.
If patient is a discharge home, without oxygen therapy, notify anestheiologist if
unable to maintain O2 SAT of 92% or greater on room air for MD clearance.
12/16/24 10:30
Normosol (Mult Electrolytes) [Normosol-R/Plasmalyte-A] 1,000 ml IV PER PROTOCOL
12/16/24 18:00
Enoxaparin Sodium [Lovenox] 40 mg SC QPM
Abnormal Lab Results
12/16/24
09:04
WBC 4.6 L 10^3/uL
(4.8-10.8)
RBC 3.91 L 10^6/uL
(4.70-6.10)
Hgb 11.6 L g/dL
(13.0-18.0)
Hct 34.2 L %
(39.0-52.0)
Sodium 132 L mmol/L
(135-145)
Creatinine 0.5 L mg/dL
(0.7-1.3)
ALT 74 H U/L
(0-50)
Alkaline Phosphatase 193 H U/L
(38-126)
Total Protein 5.8 L g/dl
(6.3-8.2)
12/16/24 09:04
12/16/24 09:04
Vital Signs
Initial and Last Documented VS:
Initial Vital Signs
Temp Pulse Resp BP Pulse Ox
97.8 F 102 18 102/71 99
12/16/24 08:11 12/16/24 08:11 12/16/24 08:11 12/16/24 08:11 12/16/24 08:11
Last Documented Vital Signs
Temp Pulse Resp BP Pulse Ox
97.8 F 57 16 95/65 97
12/16/24 08:11 12/16/24 10:00 12/16/24 10:00 12/16/24 09:58 12/16/24 09:57
<Jaret Driscoll PA-C - Last Filed: 12/16/24 10:35>
MDM/Problems Addressed
MDM/Problems Addressed:
Case was discussed with general surgery Dr. Pan who will admit to his service for intervention, patient will be kept n.p.o. until that time
<Jaret Driscoll PA-C - Last Filed: 12/16/24 10:35>
*Pulse Oximetry
SaO2: 99
Oxygen Mode of Delivery: Room air
Patient hypoxic: no
*Critical Care Note
Total Time (30-74mins, 75-104mins- exclusive of procedures): Not Applicable
ED Attending Note
<Jaret Driscoll PA-C - Last Filed: 12/16/24 10:35>
-
Portions of this chart may have been created with voice recognition software.� Occasional wrong word or��sound alike� substitutions may have occurred due to the inherent limitations of voice recognition software.
<Isabella Kirby DO - Last Filed: 12/16/24 10:05>
ED Attending Note
Patient seen and examined by attending physician: Yes
I performed a history and physical exam of patient and discussed management with resident, I reviewed resident's note and agree with documented findings and plan of care.: Yes
ED Attending Note:
44-year-old gentleman with history of esophageal carcinoma, recent nontraumatic cerebellar bleed November 04 undergoing craniotomy at [facility], discharged from rehab facility this morning. He has J-tube in place since September in anticipation of
requiring tube feedings. He has had ongoing complications of recurrent localized infections at G-tube site, persistent leaking especially after eating and drinking. Currently maintained on topical nystatin powder. He reports increased pain and
leakage at site after oral intake. Has been in contact with his general surgeon with plan for removal if the tube site becomes increasingly painful.
He presents today with increased pain, leakage about the J-tube site. He has not had a fever. No further headache.
44-year-old gentleman appears his stated age, bright and alert, pleasant, easily communicative and in no acute distress. is accompanying.
No overt evidence of cellulitis/local infection at J-tube site. Case discussed with Dr. Pan who request admission to his service. Maintain n.p.o. service. Will plan for intervention this a.m.
Patient agreeable with this plan.
Discharge Plan
Departure
Patient Disposition: Admit
Date of Disposition: 12/16/24
Time of Disposition: 08:38
Admit to: Med/Surg
Presentation/result/management discussed w/ accepting MD/DO: Surg- Maxim
Discharge Problem:
Jejunostomy tube leak
Prescriptions:
No Action
atorvastatin 40 mg Tablet
40 mg PO QPM
midodrine 5 mg Tablet
5 mg PO TID
famotidine 20 mg Tablet
20 mg PO BID
pantoprazole [Protonix] 40 mg Tablet,Delayed Release (Dr/Ec)
40 mg PO DAILY
Interventions
Interventions:
*Risk Screen - Suicide Last Done: 12/16/24 08:11
*General Assessment Last Done: 12/16/24 08:11
*Neglect/Abuse Screening Last Done: 12/16/24 08:11
*ED- Fall Risk Assessment Last Done: 12/16/24 08:40
*ED COVID-19 Vaccine History Last Done: 12/16/24 08:40
N[place]-Aijlgr-Ukgsqqglna Assessment Last Done: 12/16/24 08:40
ED-Male Genitourinary Assessment Last Done: 12/16/24 08:41
Discharge Date and Time
Print Language: BANGLADESHI
[2024-12-16 09:14] LABS: Hematocrit 34.2 % (39.0-52.0); Hemoglobin 11.6 g/dL (13.0-18.0); Mean Corp Hgb Conc. 33.9 g/dL (33.0-37.0); Mean Corpuscular Volume 87.5 fL (80.0-94.0); Platelet Count 239 10^3/uL (130-400); Red Cell Dist. Width 13.2 % (11.5-14.5)
[2024-12-16 09:33] LABS: ALT (SGPT) 74 U/L (0-50); AST (SGOT) 53 U/L (17-59); Albumin 3.5 g/dl (3.5-5.0); Alkaline Phosphatase 193 U/L (38-126); Blood Urea Nitrogen 15 mg/dl (9-20); Calcium 9.4 mg/dl (8.4-10.2); Carbon Dioxide 26 mmol/L (22-30); Chloride 100 mmol/L (98-107); Estimated Creatinine Clearance > 125 ml/min; Glucose 76 mg/dl (70-99); Potassium 4.2 mmol/L (3.5-5.1); Sodium 132 mmol/L (135-145); Total Protein 5.8 g/dl (6.3-8.2); eGFR > 60.00
[2024-12-16] MEDS: ANCEF 10 IV ×2 (12:14→21:02)
--- NOTE | 2024-12-16 16:09 | W.IMMPOSTOP ---
Surgical Immed Post Op Note
-
Primary Surgeon: Renato Pan MD
Assisting Surgeon: None
Manual Qa Tester: REJI Garcia
Pre-op Diagnosis: Enterocutaneous fistula
Post-op Diagnosis: Same
Procedure Performed: Laparoscopic assisted open takedown of enterocutaneous fistula, small bowel resection
Anesthesia Type: General
Specimen / Cultures: Small bowel
Estimated Blood Loss: 11 cc
Complications: None
Operative Findings: Abdomen entered safely via an infraumbilical 5 mm access. Additional ports placed in the suprapubic and right upper quadrant region. The jejunostomy site/fistula was carefully taken down with sharp dissection. A large
enterocutaneous fistula was noted. His previous thoracoabdominal incision was opened around the jejunostomy site and the wound was protected with an Jarvis. The small bowel was delivered into the field. A site and side functional end-to-end small
bowel anastomosis was created using 2 firings of an Endo LAURA 80 mm purple load in the enterotomy was passed off the field. After oversewing the staple line, placing tension sutures and closing the mesenteric defect the small bowel was returned to
the abdomen and pneumoperitoneum was reestablished confirming proper orientation of the bowel. The umbilical port site was closed with a 0 PDS [id number] and the ports were removed. The left upper quadrant incision was closed in 2 layers with
0 PDS suture. Part of the inflamed skin which extended laterally was excised. The wound was washed out and then closed partially with 3-0 Vicryl sutures and then packed with iodoform packing strips.
POST OP PLAN:
Imaging: None
Labs: Routine AM
Diet: Clears
Analgesia: Tylenol 650mg q6 Jan, Dilaudid 0.5mg q2h PRN
Neuro/vascular checks: Per unit protocol
AC/AP: Hold Therapeutic AC, Ok for DVT PPx
Activity: Ad Fernanda
Wound/Incisions/Drains: Routine, will pack wound daily with packing strip
Abx: Ancef per equivalent x 4 days
Dispo: RNF, anticipate to 2 to 3-day stay in the hospital.
[2024-12-16] MEDS: NORMOSOL-R/PLASMALYTE-A IV (16:38)
--- NOTE | 2024-12-16 16:41 | HPS.HSE ---
Family Physician
-
Family Physician: Stefan Stafford
Chief Complaint
-
Leaking jejunostomy/enterocutaneous fistula
History of Present Illness
That this is a 44-year-old male with a history of esophageal cancer status post partial esophagectomy with total gastrectomy and Alber-en-Y EJ reconstruction and previous J-tube placement via left thoracoabdominal incision who unfortunately developed
a recurrent esophageal cancer with metastasis to the lungs and liver. He was a seen by me as an outpatient for concern for feeding axis in the light of progression of his disease. He was taken electively to the OR on 10/18/2024 for a laparoscopic
jejunostomy tube placement, unfortunately it was dislodged and he developed an abdominal wall infection due to a persistent enterocutaneous fistula/leaking around the J-tube which has not abated despite conservative measures. He presented to our
hospital today with significant erythema around the drain as well as pain. Of note, he was recently admitted to an outside hospital for stroke due to an intracranial hemorrhage status post recent craniotomy for which the is just recently finished
rehab for.
Medical History
Past Medical History
Past Medical History: Reports Other
Additional Past Medical History:
Esophageal cancer, stroke/intracranial hemorrhage
Past Surgical History: Reports Other
Additional Past Surgical History:
Partially esophagectomy, gastrectomy for adenocarcinoma and recent J-tube placement
Social History
Tobacco: Former Smoker
Alcohol: None
Drug: None
Personal: Single
Living: Alone
Employment: Employed
Family History
Family History: Not pertinent
Allergies / Home Medications
Allergies reflects when Allergies were last updated in [employer].
Home Medications with original date entered in [employer]
Allergy/Medication List:
None
Atorvastatin 40 mg p.o. every afternoon
Famotidine 20 mg p.o. twice daily
Midodrine 5 mg p.o. 3 times daily
Protonix 40 mg p.o. daily
Review of Systems
-
History Source: Patient
A 12 point ROS was completed and negative except as noted: Yes
Physical Exam
Vital Signs
Vital Signs
Temp Pulse Resp BP Pulse Ox
97.5 F 83 18 104/72 95
12/16/24 16:40 12/16/24 16:40 12/16/24 16:40 12/16/24 16:40 12/16/24 16:40
Physical Exam
General: Well Developed
Respiratory: Non Labored Respirations
GI: Soft, Tender (Tender to palpation around the J-tube site) and Other (Significant erythema around the J-tube site with active bile leaking onto the abdominal wall and wound)
Neuro: AO x 3
Laboratory Results
-
12/16/24 09:04
12/16/24 09:04
Laboratory Results
Total Bilirubin 0.9 mg/dl (0.2-1.3) 12/16/24 09:04
AST 53 U/L (17-59) 12/16/24 09:04
ALT 74 U/L (0-50) H 12/16/24 09:04
Alkaline Phosphatase 193 U/L (38-126) H 12/16/24 09:04
Data Reviewed
-
Lab Data: Labs Reviewed by me, Discussed with Physician and Discussed with Patient
Impression/Plan
-
IMPRESSION:
This is a 44-year-old male with a leaking jejunostomy tube/enterocutaneous fistula that has failed to ezequiel despite conservative measures
PLAN:
Will plan for a lap assisted open takedown of his enterocutaneous fistula. The patient does not want a new feeding tube or access at this time.
Will admit to the general surgery service.
Okay for clears after the procedure
Antibiotics ordered.
Will likely need wound care postoperatively.
Risks/Benefits/Alternatives, expected postoperative course and possible complications (bleeding, infection, injury to surrounding structures, acute/chronic pain) discussed at length. Patient wishes to proceed with surgery. All questions answered.
Consent obtained.
I spent 75 minutes in total for the care of this patient today including direct patient care and counseling, reviewing labs, imaging, coordination of care, as well as documentation.
[2024-12-16] MEDS: LOVENOX 40 MG SC (17:09)
[2024-12-16] MEDS: DILAUDID IV (21:02)
[2024-12-16] MEDS: ZOFRAN 4 MG IV (21:09)
[2024-12-16] MEDS: NORMOSOL-R/PLASMALYTE-A 1000 IV (23:00)
[2024-12-17] MEDS: ANCEF 10 IV ×3 (04:26→20:01)
[2024-12-17] MEDS: OFIRMEV 100 IV ×2 (05:18→17:50)
[2024-12-17 07:24] VITALS: BP 98/57
--- NOTE | 2024-12-17 10:39 | W.PN.GS2 ---
Addendum entered and electronically signed by Renato Pan MD 12/21/24 12:43:
For CDI purposes:
Patient was noted to have moderate protein malnutrition prior to arrival secondary to poor p.o. intake (less than 50% for greater than 1 week), and observable muscle loss particularly in the face and extremities.
Addendum entered and electronically signed by Renato Pan MD 12/17/24 12:07:
I saw and examined the patient independently.
The resident's documentation was reviewed and I agree with the note, assessment and plan except where noted below.
Comment: This is a 44-year-old male postoperative day 1 from a lap lap assisted open takedown of an enterocutaneous fistula, small bowel resection for a nonhealing/leaky J-tube. Overall doing well, expected postoperative course.
Continue clear liquids for now until passing the gas
Wound care ordered to pack wound daily, will expect some skin necrosis
Incentive spirometer, out of bed and ambulate as able.
Will plan to discharge him once on a full liquid diet with supplements after which he can advance to his typical diet at home
Original Note:
Today's Communication / Plan
-
Continue clear liquid
Wound care ordered entered for daily packing changes
Incentive spirometer given to patient today
Assessment / Plan
-
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
enterocutaneous fistula, leaking around the J-tube. Patient is now POD#1 s/p laparoscopic assisted open takedown of enterocutaneous fistula, small bowel resection.
Assessment
POD #1 s/p lap assisted open takedown of enterocutaneous fistula, small bowel resection
Plan
Wound care consult entered for daily packing changes with 1/2in packing strip and gauze covering
Pain medication as needed
Incentive spirometry given to patient today
Keep patient on clears today, possibly advance to fulls tomorrow.
Subjective Data
-
Date of Service: December 17, 2024
Patient is a 44-year-old male with a history of esophageal cancer s/p partial esophagectomy with total gastrectomy and Alber-en-Y EJ reconstruction and previous J-tube placement via left thoraco-abdominal incision who unfortunately developed
recurrent esophageal cancer with metastatic to the lungs and liver. Patient had a laparoscopic J-tube placement on 10/18/2024, unfortunately was discharged he developed abdominal wall infection due to persistent enterocutaneous fistula, leaking
around the J-tube which he has not abated despite conservative measures. Patient presented to the hospital yesterday with significant erythema around the drain as well as pain. Patient is now POD#1 s/p laparoscopic assisted open takedown of
enterocutaneous fistula, small bowel resection. Patient seen at the bedside with Dr. Pan. Patient is experiencing moderate pain this morning, exacerbated by coughing. Patient denies nausea/vomiting but is coughing up phlegm. Patient is
tolerating clear liquid. We packed and redressed the abdominal wound today. Provided and explained use of incentive spirometer.
Objective Data
-
Intake and Output
12/16/24 12/17/24 12/18/24
06:59 06:59 06:59
Intake Total 340 / 340
Output Total 625 / 625
Balance -285 / -285
Intake:
Oral fluids 240 / 240
IV fluids (Total) 100 / 100
normosol 100 / 100
Output:
Urine, Voided 625 / 625
Vital Signs
Temp Pulse Resp BP Pulse Ox
98.0 F 56 18 98/57 98
12/17/24 07:24 12/17/24 07:24 12/17/24 07:24 12/17/24 07:24 12/17/24 07:24
Lab Results
12/16/24 09:04
12/16/24 09:04
Calcium 9.4 mg/dl (8.4-10.2) 12/16/24 09:04
Total Bilirubin 0.9 mg/dl (0.2-1.3) 12/16/24 09:04
AST 53 U/L (17-59) 12/16/24 09:04
ALT 74 U/L (0-50) H 12/16/24 09:04
Alkaline Phosphatase 193 U/L (38-126) H 12/16/24 09:04
Total Protein 5.8 g/dl (6.3-8.2) L 12/16/24 09:04
Albumin 3.5 g/dl (3.5-5.0) 12/16/24 09:04
Physical Exam
-
General: Not in acute distress
Abdomen: Surgical incisions well-approximated. Abdominal wound with strip packing, covered in gauze.
Neuro: AAO X3
[2024-12-17] MEDS: ZOFRAN 4 MG IV (10:41)
--- NOTE | 2024-12-17 11:44 | VNURNOTE ---
Cold Strip Roller met with patient to discuss [facility] nurse[facility], visits, schedule and homebound status. Patient is agreeable and understands that visits at home will be 2-3 x per week to assess and teach medical management.
Patient is aware that [facility] for start of care in 1-2 days after discharge from .
VN referral completed in [facility].
[2024-12-17 13:39] VITALS: BMI 19.3
[2024-12-17 14:54] VITALS: BP 112/68
--- NOTE | 2024-12-17 14:58 | CM ---
Alert awake oriented patient who lives with his brother Ervin sister Arabella in a 1 story home with 3 step to enter. He is in all activities of daily living.He was offered VN he requested [facility] .[facility] [place] liaison saw pt and entered referral.He has a
walker [employer].
[facility] / [facility] history
Pharmacy [facility]
PCP DR Stafford
PLAN Home with [facility]
[2024-12-17] MEDS: LOVENOX 40 MG SC (17:49)
[2024-12-17] MEDS: NORMOSOL-R/PLASMALYTE-A 1000 IV (18:36)
[2024-12-17] MEDS: ROBITUSSIN 100 MG PO (20:44)
[2024-12-17 23:00] VITALS: BP 115/77
[2024-12-18] MEDS: DILAUDID 0.5 MG IV ×7 (00:47→23:51)
[2024-12-18] MEDS: ANCEF 10 IV ×3 (03:47→20:33)
[2024-12-18 07:42] VITALS: BP 115/78
[2024-12-18] MEDS: NORMOSOL-R/PLASMALYTE-A 1000 IV (09:04)
--- NOTE | 2024-12-18 12:20 | W.PN.GS2 ---
Today's Communication / Plan
-
fulls with ensure
dressing changes
Assessment / Plan
-
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
enterocutaneous fistula, leaking around the J-tube. Patient is now POD#2 s/p laparoscopic assisted open takedown of enterocutaneous fistula, small bowel resection.
Assessment
POD #2 s/p lap assisted open takedown of enterocutaneous fistula, small bowel resection
Plan
Wound care consult entered for daily packing changes with 1/2in packing strip and gauze covering
Pain medication as needed
Incentive spirometry given to patient today
Advance to full liquids with ensure apple
Subjective Data
-
Date of Service: December 18, 2024
Patient states he is very hungry. HE tolerated clears. Denies nausea or vomiting. NO pain.
Objective Data
-
Intake and Output
12/17/24 12/18/24 12/19/24
06:59 06:59 06:59
Intake Total 340 / 340 840 / 840
Output Total 625 / 625 450 / 450 560 / 560
Balance -285 / -285 390 / 390 -560 / -560
Intake:
Oral fluids 240 / 240 840 / 840
IV fluids (Total) 100 / 100
normosol 100 / 100
Output:
Urine, Voided 625 / 625 450 / 450 560 / 560
Vital Signs
Temp Pulse Resp BP Pulse Ox
97.5 F 83 14 115/78 96
12/18/24 07:42 12/18/24 07:42 12/18/24 07:42 12/18/24 07:42 12/18/24 10:20
Lab Results
12/16/24 09:04
12/16/24 09:04
Calcium 9.4 mg/dl (8.4-10.2) 12/16/24 09:04
Total Bilirubin 0.9 mg/dl (0.2-1.3) 12/16/24 09:04
AST 53 U/L (17-59) 12/16/24 09:04
ALT 74 U/L (0-50) H 12/16/24 09:04
Alkaline Phosphatase 193 U/L (38-126) H 12/16/24 09:04
Total Protein 5.8 g/dl (6.3-8.2) L 12/16/24 09:04
Albumin 3.5 g/dl (3.5-5.0) 12/16/24 09:04
Physical Exam
-
General: Not in acute distress
Abdomen: Surgical incisions well-approximated. Abdominal wound with strip packing, covered in gauze. Replaced.
Neuro: AAO X3
[2024-12-18] MEDS: ZOFRAN 4 MG IV ×2 (14:29→21:20)
[2024-12-18 16:11] VITALS: BP 134/94
[2024-12-18] MEDS: ROBITUSSIN 100 MG PO (16:41)
[2024-12-18] MEDS: OFIRMEV 100 IV (16:42)
[2024-12-18] MEDS: LOVENOX 40 MG SC (17:14)
[2024-12-18 23:00] VITALS: BP 118/88
[2024-12-19] MEDS: COMPAZINE 5 MG IV (00:30)
[2024-12-19] MEDS: ANCEF 10 IV ×2 (03:46→12:03)
[2024-12-19] MEDS: DILAUDID 0.5 MG IV (04:00)
[2024-12-19] MEDS: ZOFRAN 4 MG IV (04:00)
[2024-12-19 07:00] VITALS: BP 130/87
--- NOTE | 2024-12-19 07:58 | W.PN.GS2 ---
Today's Communication / Plan
-
Dispo planning
Assessment / Plan
-
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
enterocutaneous fistula, leaking around the J-tube. Patient is now POD#2 s/p laparoscopic assisted open takedown of enterocutaneous fistula, small bowel resection.
Assessment
POD #3 s/p lap assisted open takedown of enterocutaneous fistula, small bowel resection
Plan
Wound care consult entered for daily packing changes with 1/2in packing strip and gauze covering
Pain medication as needed
Incentive spirometry given to patient today
Advance to full liquids with ensure apple
anticipate discharge home today with follow-up in 1 week
Time Spent
Total Time Spent with Patient (in minutes): 20
Subjective Data
-
Date of Service: December 19, 2024
Interval Events:
No acute events overnight. Slept well. Pain Controlled. Denies Nausea/Vomiting, +bowel function. Tolerating diet.
Objective Data
-
Intake and Output
12/18/24 12/19/24 12/20/24
06:59 06:59 06:59
Intake Total 840 / 840 660 / 660
Output Total 450 / 450 960 / 960
Balance 390 / 390 -300 / -300
Intake:
Oral fluids 840 / 840 660 / 660
Output:
Urine, Voided 450 / 450 960 / 960
Vital Signs
Temp Pulse Resp BP Pulse Ox
98.0 F 92 18 130/87 92
12/19/24 07:00 12/19/24 07:00 12/19/24 07:00 12/19/24 07:00 12/19/24 07:00
Lab Results
12/16/24 09:04
12/16/24 09:04
Calcium 9.4 mg/dl (8.4-10.2) 12/16/24 09:04
Total Bilirubin 0.9 mg/dl (0.2-1.3) 12/16/24 09:04
AST 53 U/L (17-59) 12/16/24 09:04
ALT 74 U/L (0-50) H 12/16/24 09:04
Alkaline Phosphatase 193 U/L (38-126) H 12/16/24 09:04
Total Protein 5.8 g/dl (6.3-8.2) L 12/16/24 09:04
Albumin 3.5 g/dl (3.5-5.0) 12/16/24 09:04
Physical Exam
-
GENERAL/NEURO: Awake, Alert, no distress
CHEST: Unlabored breathing on RA
ABDOMEN: Soft, Non-Tender, Non-Distended, incisions clean dry and intact. Left upper quadrant wound stable, repacked
Patient has a spencer catheter: No
Patient has a central line: No
--- NOTE | 2024-12-19 09:43 | CM ---
MD entered order for discharge.
Family to transport home.
[facility] set up accepted as per care port.
PLAN Home with [facility]
[2024-12-19 12:16] VITALS: BP 121/84
--- NOTE | 2024-12-20 11:44 | PN.CDI ---
CDI
- -
CDI:
Physician Documentation Request
Admit Date: 12/16/24 13:10
Dear Doctor Mxaim,
Patient admitted with leaking jejunostomy/enterocutaneous fistula.
12/17 Nutrition note, 'With weight loss of > 10% in 6 months and <75% estimated needs > 1 month pt meeting AND/ASPEN criteria for moderate protein calorie malnutrition of chronic illness.
Please provide in your note the diagnosis associated with the above nutritional findings and your assessment:
Moderate protein calorie malnutrition of chronic illness
Other
[place] Criteria ([facility] Hospitalist 2017)
2 or more criteria must be present for either
non severe or severe malnutrition
Note that the criteria differs related to the
presence of an acute or chronic illness
Chronic Illness
Energy Intake Non Severe: <75% for >1 month
Severe: <75% for >1 month
Weight Loss Non Severe: 5% over 1 month
7.5% over 3 months
10% over 6 months
20% over 1 year
Severe: >5% over 1 month
>7.5% over 3 months
>10% over 6 months
>20% over 1 year
Body Fat Non Severe: Mild Loss
Severe: Severe Loss
Muscle Mass Non Severe: Mild Loss
Severe: Severe Loss
Fluid Accumulation Non Severe: Mild Accumulation
Severe: Moderate to severe
accumulation
Reduced Bander Operator Strength Non Severe: N/A
Severe: Measurably reduced
Use of terms such as suspected, likely, concern for, or probable (associated with a specific diagnosis that is being evaluated, monitored, or treated as if it exists) are acceptable and can be coded in the inpatient setting, when documented at the
time of discharge.
Thank you,
Rosi CHAUDHARI,RN,CCDS
CDI Specialist
Available via [employer] text
Please use your independent medical judgment in providing your response.
--- NOTE | 2024-12-21 12:44 | OR.RPT ---
Operative Report
Operative Report
Patient Name: Art Calvo
: 01/23/1971
Date of Operation: 12/16/2024
Preoperative Diagnosis: Enterocutaneous fistula, leaking jejunostomy tube
Postoperative Diagnosis: Same
Procedure(s):
Laparoscopic assisted open takedown of enterocutaneous fistula, small bowel resection
Incision and debridement of an abdominal wall soft tissue infection
Surgeon(s):
Dr. Pan
Glass Mould Cleaner(s):
REJI Garcia
Anesthesia: General
Estimated Blood Loss: 11 cc
Urine Output: None
Drains/Lines/Implants: None
Specimens:
1. Small Bowel
HPI/Surgical Indications:
This is a 44-year-old male with a history of esophageal cancer and known mets to the lungs and liver who I initially saw for a laparoscopic J-tube placement that was complicated by an early dislodgment. Conservative measures to try and decrease
leaking around the tube have failed and have caused significant abdominal wall cellulitis and pain limiting his ability to undergo chemotherapy so after discussion of risk benefits and alternatives the elected to do a takedown of his jejunostomy
site and subsequent small bowel resection. Though he may need feeding access in the future, at this time the patient's nutritional status was acceptable and so the decision was made not to replace or put a new feeding tube and at the same operation.
Operative Findings: Abdomen entered safely via an infraumbilical 5 mm access. Additional ports placed in the suprapubic and right upper quadrant region. The jejunostomy site/fistula was carefully taken down with sharp dissection. A large
enterocutaneous fistula was noted. His previous thoracoabdominal incision was opened around the jejunostomy site and the wound was protected with an Jarvis. The small bowel was delivered into the field. A site and side functional end-to-end small
bowel anastomosis was created using 2 firings of a LAURA 80 mm purple load in the enterotomy was passed off the field. After oversewing the staple line, placing tension sutures and closing the mesenteric defect the small bowel was returned to the
abdomen and pneumoperitoneum was reestablished confirming proper orientation of the bowel. The umbilical port site was closed with a 0 PDS [id number] and the ports were removed. The left upper quadrant incision was closed in 2 layers with 0
PDS suture. Part of the inflamed skin which extended laterally was excised. The wound was washed out and then closed partially with 3-0 Vicryl sutures and then packed with iodoform packing strips.
Procedure Description:
The patient was brought to the Operating Room and placed in the supine position with the arms out. IV antibiotics were infused and Venodyne stockings placed. Following uneventful induction of general endotracheal anesthesia, the abdomen was
prepped and draped in the usual sterile fashion. The abdomen was entered using an infraumbilical 5 mm Shakira technique and pneumoperitoneum was established. 2 additional 5 mm trocars were placed in the suprapubic and right upper quadrant. Using
primarily sharp and blunt dissection the jejunostomy site was taken down, as expected a large enterotomy was identified. The bowel was clamped with a locking grasper to prevent further contamination. At this point his prior thoracicoabdominal
incision was incised and the abdomen was entered safely from an open approach. The skin was protected using a small Jarvis wound retractor. The small bowel was delivered into the field and a [id number], functional end-to-end small bowel
anastomosis was created using a Scottie technique with 2 firings of a LAURA 80 purple stapler. The intervening mesentery was ligated using a LigaSure device. The fistula site was passed off as specimen. The common enterotomy staple line was
oversewn with silks, the mesentery defect was closed and antitension sutures were placed in the crotch. The anastomosis measured roughly 5 cm and was patent. The small bowel was returned to the abdomen in the proper orientation. Our gloves were
changed and the Jarvis retractor was removed. The umbilical port site was closed with 0 PDS [id number] suture and all the other ports were removed. Left upper quadrant incision was closed in 2 layers with 0 PDS suture anchored at each apex
and run towards the middle and tied together. There was significant amount of cellulitis that extended from her incision laterally and more horizontal compared to the oblique thoracicoabdominal incision so this was incised and part of the skin was
debrided with sharp dissection. The wound measured roughly 3 cm in width. There was no obvious abscess cavity but the wound was thoroughly irrigated and then packed with quarter inch iodoform packing. The thoracoabdominal incision was closed with
3-0 Vicryl sutures and the port sites were closed with 4-0 Monocryl followed by glue. Overall, the patient tolerated the procedure well and was taken to the Recovery Room postoperatively in stable condition.
I was the attending physician and performed the procedure with assistance of the PA above. The assistance of REJI Garcia was required due to the complexity of the procedure. During the procedure Stephanie assisted with retraction, resection, and
closure of the wound. I was present for all portions of the case.
Renato Pan MD
== END 2024-12-19 13:15 | disposition home health service (06) | DRG 330 ==
LOC: 3 WEST ACU 13:10
PROVIDERS: Physician Assistant; ADMITTING PHYSICIAN Surgery; EMERGENCY PHYSICIAN Emergency Medicine; FAMILY PHYSICIAN Family Medicine
PROC: 0DB80ZZ Excision of Small Intestine, Open Approach (ICD-10-PCS; 2024-12-16)
PROC: 0HB7XZZ Excision of Abdomen Skin, External Approach (ICD-10-PCS; 2024-12-16)
DX: K94.19 Other complications of enterostomy (principal); C15.9 Malignant neoplasm of esophagus, unspecified; C78.7 Secondary malignant neoplasm of liver and intrahepatic bile duct; C78.01 Secondary malignant neoplasm of right lung; C78.02 Secondary malignant neoplasm of left lung; K63.2 Fistula of intestine; L03.311 Cellulitis of abdominal wall; E44.0 Moderate protein-calorie malnutrition; Z68.1 Body mass index [BMI] 19.9 or less, adult; Z90.3 Acquired absence of stomach [part of]; Z87.891 Personal history of nicotine dependence; Z86.73 Personal history of transient ischemic attack (TIA), and cerebral infarction without residual deficits; Z85.01 Personal history of malignant neoplasm of esophagus; Z79.899 Other long term (current) drug therapy
CPT/HCPCS: 80053; 85027; 88307; 88341; 88342; 93005; 99284

== ENCOUNTER 2024-12-21 06:30 | Emergency (ER) | payer OTHER, SELFPAY ==
[2024-12-21] VITALS (23 sets, daily range): BP systolic 100–147; BP diastolic 79–133; BMI 18.9
--- NOTE | 2024-12-21 07:20 | ED.GENMED ---
History of Present Illness
General
Chief Complaint: Abdominal Symptoms
Source: patient and family
Time Seen by Provider: 12/21/24 06:47
History of Present Illness
History of Present Illness:
This patient is a 44-year-old male presents emergency department accompanied by his [id number]. He has a history of esophageal cancer status post partial esophagectomy with total gastrectomy and Alber-en-Y reconstruction. He had a J-tube placed,
but this was recently removed due to persistent leak and infection. This was performed recently and patient was discharged from the hospital on Friday, 48 hours ago. Upon discharge he was tired but was able to drink a little bit including boost.
However, Friday morning he began to develop repeated episodes of vomiting noted only when he tries to consume p.o. He also notes his usual abdominal discomfort which is unchanged. Yesterday he developed discomfort at the left mid back area. On
that day, the visiting nurse came to change the packing of his abdominal wound and noted that his lungs sounded okay and that his temperature was 98.6. He does note increasing phlegm particularly when he lays on his right side. Today, he developed
discomfort in his chest that feels like a 'clicking' when he breathes. Specifically only when he swallows pills he feels like something gets stuck in his throat like is getting caught on a 'shelf'. He also feels mildly dyspneic.
Past History
Past History
ED Past Medical History: Cancer (Distal esophagus and gastric with partial esophagectomy and gastrectomy in March 2021. 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
ED Past Surgical History: Other (partial esophagectomy, gastrectomy for adenocarcinoma 03/2021; J-tube placement October 14, 2024, J-tube removal November 2024 craniotomy)
Social History
Tobacco: Former smoker
Alcohol: Occasional
Drug: None
Personal: Single
Living: with family
Family History
Family History: Other (Noncontributory)
Phy Exam
Physical Exam
Physical Exam:
GENERAL: Alert , cachectic, speaks in a soft voice
EYE: pupils equal and reactive
NECK: Supple, no significant adenopathy.
ENT: o/p clr, mm dry
CARDIAC: Regular rate and rhythm .
LUNGS: Equal but decreased breath sounds bilaterally, mild tachypnea but speaks in full sentences easily, no stridor, drool, gurgling, no acute respiratory distress, no wheezes/rales/rhonchi
ABDOMEN: Soft, without focal tenderness, no r/g, abdominal wound site with packing in place and mild surrounding erythema
NEUROLOGICAL: Alert and oriented, mild baseline left-sided weakness which is unchanged
SKIN: Warm and dry, skin intact except as above
MUSCULOSKELETAL: No edema, well perfused.
PSYCH: Normal and appropriate interaction.
Sepsis
Sepsis Screening
Sepsis Assessment: Sepsis Ruled Out
Sepsis Screen
Sepsis Screen: Sepsis Ruled Out
Date: 12/22/24
Time: 10:19
Course
Orders/Labs/Results
Orders:
Orders
12/21/24
CT Chest Tube Urgent
12/21/24 06:46
Electrocardiogram (*1) Urgent
Reason for Study: Shortness of Breath
EKG- Treatment ONCE
12/21/24 07:17
Cardiac Monitoring- Treatment ONCE
Urinalysis Reflex To Culture Urgent
O2 Therapy [RESP] Urgent
Nasal Cannula Liter Flow: 2 LPM
Titrate/Wean O2 to maintain O2 sat greater than (%): 94
Pulse Ox/cont/shift [RESP] Urgent
Quantity: 1
12/21/24 07:18
CR Chest - 2 Views Urgent
Comment:
Reason For Exam: sob
12/21/24 07:19
0.9% Sodium Chloride 1000 ml [Nss] 1,000 ml IV BOLUS
HYDROmorphone [Dilaudid] 1 mg IV NOW STA
12/21/24 07:21
Ondansetron Injectable [Zofran] 4 mg .ROUTE .STK-MED ONE
12/21/24 07:22
Complete Blood Count/With Diff Urgent
Comprehensive Metabolic Panel Urgent
Lactic Acid Q4H
Comment: CANCEL 2nd LACTIC ACID IF 1st LACTIC ACID IS LESS THAN 2
Lipase Urgent
Troponin I Urgent
Blood Culture Q30M
JUAN JOSÉ Source: Blood/Venous
Specimen Description:
Blood Culture Q30M
JUAN JOSÉ Source: Blood/Venous
Specimen Description:
12/21/24 07:28
Ondansetron Injectable [Zofran] 4 mg IV NOW STA
12/21/24 09:11
Chest Tube Insertion Stat
12/21/24 09:23
Consult Interventional Radiology [[facility] CONSULT] Stat
Consulting Provider: Dakota Francisco
Was physician already notified: Yes
Procedure being ordered, including laterality if applicable: L chest tube
Acknowledgement that appropriate orders are entered: Yes
12/21/24 09:30
CT Chest/abd/pel W Iv Cont Urgent
Reason For Exam: n/v, hx surgery
12/21/24 09:38
Fentanyl Citrate/Pf [Sublimaze] 250 mcg .ROUTE .STK-MED ONE
Midazolam HCl [Versed] 5 mg .ROUTE .STK-MED ONE
12/21/24 10:50
Portable Chest Xray [CR Chest Portable - 1 View] Stat
Comment:
Reason For Exam: s/p chest tube placement in CT
Reason Study Needs to be Portable: Unable to Transport
12/21/24 12:07
Lactic Acid Q4H
Comment: CANCEL 2nd LACTIC ACID IF 1st LACTIC ACID IS LESS THAN 2
12/21/24 13:32
Portable Chest Xray [CR Chest Portable - 1 View] Urgent
Comment:
Reason For Exam: r pneumo eval
Reason Study Needs to be Portable: Unable to Transport
12/21/24 14:05
HYDROmorphone [Dilaudid] 1 mg IV NOW STA
12/21/24 14:11
Ondansetron Injectable [Zofran] 4 mg IV NOW STA
12/21/24 14:12
Ondansetron Injectable [Zofran] 4 mg .ROUTE .STK-MED ONE
12/21/24 Dinner
NPO
Allow oral meds: No
Allow clear liquids: No
NPO with Ice Chips: No
12/21/24 15:38
Admit/Transfer Patient As Directed
Co-Sign Provider:
Level of Care: Inpatient admission
Assign to:: IMU- Intermediate Care
Physician / Group: jack rubin
Diagnosis: bilat hydropneumothorax,r chesttube, bowel intrathoracic,i SBO, vomiting
Reason for Hospitalization: bilat hydropneumothorax,r chesttube, bowel intrathoracic,i SBO, vomiting
Expected length of stay greater than two midnights?: Yes
ELOS- Estimated Length of Stay in days: 3
I certify the patient meets the requirements for IP care: Yes
12/21/24 15:39
Code Status As Directed
Resuscitation Status: Full Code
12/21/24 15:44
PRN Pain Medication Management As Directed
May give lesser potent ordered pain med per pt: Yes
preference::
Protocol:: Medication orders for pain may be administered in a
manner that supports deferring to patient preference
when the pt is:
- Requesting an ordered lesser potent pain medication.
Least to most potent pain medications are defined
as: acetaminophen < NSAID < tramadol < opioids
(morphine, oxycodone, hydromorphone).
- Requesting a lesser dose of the same medication IF
ORDERED.
- Requesting a less intrusive route of administration
if both routes are prescribed by the provider (PO <
IV).
12/21/24 15:46
SURGICAL CONSULT Routine
Consulting Provider: Renato Pan
Was physician already notified: Yes
Reason for consult: vomiitng, bowel intrathoracic, fistula leak bilat hydropneumothorax
12/21/24 16:03
Chest Tube As Directed
Location: left
To suction: Yes
Suction to __ centimeters of water: -20
May ambulate with suction off?: No
Comment: RECORD OUTPUT FROM CHEST TUBE EVERY SHIFT
Intake/ Output As Directed
Frequency: q12h
Comment: RECORD TUBE OUTPUT EVERY SHIFT
Surgical Procedure As Directed
Surgical Procedure: left chest tube
12/21/24 16:04
Wound Care As Directed
Location of Wound: left chest tube
Treatment of Wound: Change dressing q3days PRN. Clean round the tube with sterile gauze and sterile 0.9%
sodium chloride. Dress with drain sponge/ 4x4's and tape. Position tube so it does not
kink.
If tube falls out cover site with dressing then call [facility] at ext [phone] between [phone]
Friday-Friday. Schedule replacement JIMI. Call hospital video camera operator after hours and
weekends and ask for Interventional Radiologist publication director to be beeped.
Any questions please call [facility] at ext [phone]
12/21/24 17:21
HYDROmorphone [Dilaudid] 0.5 mg IV Q3HPRN PRN
HYDROmorphone [Dilaudid] 1 mg IV Q4HPRN PRN
12/21/24 21:09
0.9% Sodium Chloride 1000 ml [Nss] 1,000 ml IV 100 mls/hr
12/21/24 22:13
Ondansetron Injectable [Zofran] 4 mg IV Q6HPRN PRN
12/21/24 22:26
HYDROmorphone [Dilaudid] 0.25 mg IV Q3HPRN PRN
Heparin 5,000 units SC Q12
Promethazine [Phenergan] 12.5 mg 0.9% Sodium Chloride 50 ml [Nss] 50 ml IV Q4HPRN
12/21/24 22:26
Activity As Directed
Activity Level: With Assistance
Vital Signs As Directed
Frequency: Per unit guidelines
O2 Therapy [RESP] Routine
Nasal Cannula Liter Flow: 2 LPM
Titrate/Wean O2 to maintain O2 sat greater than (%): 91
Pulse Ox/spot Check [RESP] Routine
Quantity: 1
DX Deep Vein Thrombosis Video Routine
12/22/24 06:00
Complete Blood Count/With Diff IN AM
Comprehensive Metabolic Panel IN AM
12/22/24 08:00
Pantoprazole [Protonix IV] 40 mg IV DAILY
12/23/24 06:00
Complete Blood Count/With Diff IN AM
Comprehensive Metabolic Panel IN AM
12/24/24 06:00
Complete Blood Count/With Diff IN AM
Comprehensive Metabolic Panel IN AM
Abnormal Lab Results
12/21/24 12/21/24
07:22 12:07
RBC 4.04 L 10^6/uL
(4.70-6.10)
Hgb 12.2 L g/dL
(13.0-18.0)
Hct 36.1 L %
(39.0-52.0)
Absolute Lymphs (auto) 0.7 L 10^3/uL
(1.2-3.4)
Absolute Monos (auto) 0.8 H 10^3/uL
(0.1-0.6)
Immature Gran % 0.7 H %
(0-0.5)
Lymphocytes % 11.1 L %
(20.5-51.1)
Monocytes % 13.5 H %
(1.7-9.3)
BUN 32 H mg/dl
(9-20)
Glucose 132 H mg/dl
(70-99)
Lactic Acid 2.8 H mmol/L 2.1 H mmol/L
(0.7-2.0) (0.7-2.0)
Alkaline Phosphatase 175 H U/L
(38-126)
12/21/24 07:22
12/21/24 07:22
Vital Signs
Initial and Last Documented VS:
Initial Vital Signs
Temp Pulse Resp BP Pulse Ox
97.6 F 127 20 129/98 93
12/21/24 06:35 12/21/24 06:35 12/21/24 06:35 12/21/24 06:35 12/21/24 06:35
Last Documented Vital Signs
Temp Pulse Resp BP Pulse Ox
97.2 F 133 18 147/110 93
12/21/24 17:24 12/21/24 23:15 12/21/24 23:15 12/21/24 23:14 12/21/24 23:00
*Pulse Oximetry
SaO2: 92
Oxygen Mode of Delivery: Room air
Patient hypoxic: yes
*Critical Care Note
Total Time (30-74mins, 75-104mins- exclusive of procedures): 45
Update Note
Update Note:
Patient presents to the Emergency Department with ____vomiting
Number and Complexity of Problems Addressed at the Encounter
� Chronic conditions affecting care:
� Acute Exacerbation and/or Progression of Chronic Illness:
� Differential Diagnosis includes: But not limited to dehydration, aspiration, swallowing dysfunction, obstruction, etc. etc. etc.
Amount and/or Complexity of Data to be Reviewed and Analyzed
� I performed an independent evaluation of and my interpretation is:
EKG: Read by me, sinus tachycardia, nonspecific T wave inversions
CT:Interval development of bilateral hydropneumothoraces, left greater than right.
2. Interval significant worsening of large diaphragmatic hernia with multiple loops of bowel within both hemithoraces, left greater than right. Multiple loops of bowel occupy the majority of the left hemithorax. Moreover, there are multiple
fluid-filled dilated small bowel loops within the left midabdomen measuring 5.9 cm with several decompressed bowel loops seen within the left chest suspicious for superimposed small bowel obstruction. Moderate amount of free fluid seen within the
pelvis.
3. Interval worsening of metastatic disease within the chest. Interval enlargement of right adrenal metastasis. Grossly stable hepatic metastatic disease. There appears to be new sclerotic lesion involving the right eighth rib.
4. Soft tissue wound seen within the left upper quadrant site of prior J-tube. There are small foci of gas seen within the deeper soft tissue no gross evidence for pneumoperitoneum. Presence of enteric cutaneous fistula cannot be excluded.
Xrays: Read by me and radiology, left pneumothorax with associated diaphragmatic hernia
Laboratory Studies: Mild anemia, prerenal azotemia consistent with suspected dehydration, mild lactic acidosis
Other:
� Review of other/old records reveals: Discharge summary from December 16 reviewed by me at which time patient had his G-tube removed
� Clinical information was obtained by an independent historian: Sister who patient lives with extremely helpful at bedside with further history
� Prescriptions/Medications Considered but not given:
� Further testing considered but not performed:
Risk of Complications and/or Morbidity or Mortality of Patient Management
� Social determinants of health affecting care:
� Discussion with other providers (PCP, Hospitalists, Consultants, etc):
� Escalation of care including admission/observation vs risk of discharge considered: Although obstruction a strong consideration given patient's complex medical history, he does not have hyperactive bowel sounds, abdominal
distention, repeated vomiting even when not trying to eat or drink, etc.
8:52 AM notified by radiology that x-ray consistent with complete pneumothorax and worsening diaphragmatic hernia. Text placed to interventional radiology asking for their assistance in placing a chest tube which I suspect would best be done under
fluoroscopy guidance.
Case discussed with Dr. Francisco he will bring patient to CT now to perform chest tube placement, case discussed with patient and sister who is bedside they are aware. Patient remained stable on nasal cannula here. Pain is improved status post
Dilaudid here. Patient will obviously need to be admitted to the hospital, will discuss with hospitalist.
11:35 AM patient returned from CT, chest tube in place, vitals remained stable. Alerted by Dr. Francisco from IR that small pneumothorax seen on the right side recommendation is to repeat chest x-ray in 2 hours which I have ordered. Overall CT also
consistent with SBO, continue to hydrate.
Case discussed with Dr. Pan after he reviewed CT. Given complexity of his case he recommends transfer to [place] may need consideration for surgery via thorax and abdominal approach. Call placed to [facility], they will call me back in about an hour with
the surgeon who is currently in the operating room. However, they state they are having a 'bed situation', and do not have any availability until least tomorrow morning and therefore recommend admission in the meantime. Both the hospitalist and
Dr. Pan were updated regarding this.
2:13 PM repeat chest x-ray shows improvement of bilateral pneumothoraces. We will continue to monitor closely.
Long discussion in a private room with patient's sister who has been at patient's bedside. Discussed with her patient's findings here. It is still not completely certain that patient would consider himself a candidate for surgery/want that, we
will need to discuss with him further once he is more awake and alert.
Initial call to [facility] for tx placed at approx 130pm, at that time, they stated that the would return call in one hour. I have placed two more calls, most recently now (410pm). Surgeon (Dr White) is still ins urgery, when he gets out, he will call us
back to receive case. This was d/w hospitalist on s/o. They will be instructed to call him Dr Orr at: [phone]
ED Attending Note
-
Portions of this chart may have been created with voice recognition software.� Occasional wrong word or��sound alike� substitutions may have occurred due to the inherent limitations of voice recognition software.
Discharge Plan
Departure
Patient Disposition: Admit
Date of Disposition: 12/21/24
Time of Disposition: 14:03
Presentation/result/management discussed w/ accepting MD/DO: Hospitalist
Condition: Fair
Discharge Problem:
Pneumothorax on left, Dehydration, SBO (small bowel obstruction), Hiatal hernia
Interventions
Interventions:
*Risk Screen - Suicide Last Done: 12/21/24 07:09
*General Assessment Last Done: 12/21/24 07:08
*Neglect/Abuse Screening Last Done: 12/21/24 07:09
*ED- Fall Risk Assessment Last Done: 12/21/24 07:08
*ED COVID-19 Vaccine History Last Done: 12/21/24 07:08
*Nursing Disposition Last Done: 12/21/24 23:40
IC-Kaagzn-Bpkxfzwxub Assessment Last Done: 12/21/24 07:09
Discharge Date and Time
Discharge Date/Time: 12/21/24 23:58
[2024-12-21] MEDS: DILAUDID 1 MG IV ×3 (07:28→17:49)
[2024-12-21] MEDS: ZOFRAN 4 MG IV ×2 (07:28→14:13)
[2024-12-21] MEDS: NSS 1000 IV ×2 (07:29→21:49)
[2024-12-21 07:33] LABS: Hematocrit 36.1 % (39.0-52.0); Hemoglobin 12.2 g/dL (13.0-18.0); Mean Corp Hgb Conc. 33.8 g/dL (33.0-37.0); Mean Corpuscular Volume 89.4 fL (80.0-94.0); Nucleated Red Blood Cells % 0 % (-); Platelet Count 329 10^3/uL (130-400); Red Cell Dist. Width 13.3 % (11.5-14.5)
[2024-12-21 07:52] LABS: ALT (SGPT) 14 U/L (0-50); AST (SGOT) 23 U/L (17-59); Albumin 3.7 g/dl (3.5-5.0); Alkaline Phosphatase 175 U/L (38-126); Blood Urea Nitrogen 32 mg/dl (9-20); Calcium 10.1 mg/dl (8.4-10.2); Carbon Dioxide 26 mmol/L (22-30); Chloride 98 mmol/L (98-107); Estimated Creatinine Clearance 99 ml/min; Glucose 132 mg/dl (70-99); Lipase 24 U/L (23-300); Potassium 4.6 mmol/L (3.5-5.1); Sodium 135 mmol/L (135-145); Total Protein 6.3 g/dl (6.3-8.2); eGFR > 60.00
[2024-12-21 08:03] LABS: Troponin I < 0.012 ng/ml
--- NOTE | 2024-12-21 12:22 | HPS.HSE ---
Addendum entered and electronically signed by Lorena Bojorquez MD 12/21/24 20:47:
This is an addendum to H&P written by Melanie Odonnell on 12/21/2024. Patient seen and examined independently with PRICER BAGGER.�
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
cholecystectomy, intracranial hemorrhage status post recent craniotomy, liver lesion, hiatal hernia, presenting with repeated episodes of vomiting when he tries to consume anything. �He also has abdominal discomfort which is unchanged. �Yesterday he
had discomfort at the left mid back area.
He has increased phlegm production and discomfort feels a clicking when he breathes shortness of breath. �Feels like something is getting stuck in his throat.
Patient recently admitted from 12/16 to 12/19 for erythema and leaking around the J-tube and underwent open takedown of his enterocutaneous fistula.
He was admitted in September for dislodgment of G-tube with abdominal wall abscess requiring open drainage and reinsertion of G-tube.
Vital signs show heart rate up to 127. �Patient on 4 L oxygen.
Labs show lactic acid 2.8.
Chest/abdomen/pelvis CT scan shows interval development of bilateral hydropneumothoraces left greater than right. �Significant worsening of large diaphragmatic hernia multiple loops of bowel within both hemithoraces. �Moreover there are multiple
fluid-filled dilated small bowel loops with left midabdomen measuring 5.9 cm with several decompressed bowel loops seen within the left chest suspicious for superimposed small bowel obstruction. �Moderate amount of free air seen within the pelvis.
There is interval worsening of metastatic disease within the chest. �Interval enlargement of right adrenal metastasis. �Stable hepatic metastatic disease. �New sclerotic lesion involving the right eighth rib.
There is soft tissue wound seen within the left upper quadrant site of prior G-tube. �There are small foci of gas seen within the deeper soft tissues without evidence of pneumoperitoneum.
Patient with bilateral hydropneumothoraces after recent J-tube removal and open takedown of his enterocutaneous fistula on 12/16. �He has significant worsening of the large diaphragmatic hernia with multiple loops of bowel within both hemithoraces as
well as a small bowel obstruction within the chest.
Patient had chest tube placed on the left side. �IR recommended repeat chest x-ray at 1:30 PM.
Unclear if patient has Pneumothoraces as a surgical complication� �vs pulmonary from metastatic disease.� �Due to complex small bowel obstruction within diaphragmatic hernia in the chest patient to be transferred to [place]. �General surgery consulted.
�N.p.o., IV fluids. �Zofran, Dilaudid as needed.� Empiric Zosyn.�
Patient was accepted by Dr. Marcus (surgical oncology)� and Dr Harris (trauma ICU) at [facility] which was arranged by me.
Original Note:
Family Physician
-
Family Physician: Stefan Stafford
Chief Complaint
-
Recurrent vomiting unable to hold down fluids
History of Present Illness
Patient was treated on 12/16/2024 for lap assisted takedown of enterocutaneous fistula did not want feeding tube access at that time. He returns today to the ER for recurrent episodes of vomiting unable to drink but only sips of boost. He reports
while vomiting he developed discomfort in the middle of his chest. yesterday he developed discomfort to the left mid back and today developed chest comfort with difficulty breathing. He also is complaining of feeling of a sensation of something is
stuck in his throat when he swallows. In the ER he was noted to have bilateral pneumothorax right greater than left. He has chronic abdominal wound at previous jejunostomy site that is leaking. Patient was taken to IR for chest tube placed in his
right chest wall he is currently still sedated from IV medication. He is very lethargic with very soft-spoken voice he reports some gurgling type of pain in his mid chest. He has a previous J-tube site left lower quadrant abdomen that has some
drainage on his current dressing. He denies fever, chills, diarrhea, urinary symptoms
He has past medical history esophageal cancer status post partial esophagectomy total gastrectomy with Alber-en-Y EJ reconstruction for adenocarcinoma with J-tube place. Post J-tube placement via left thoracoabdominal incision but unfortunately
developed recurrent esophageal cancer with mets to lungs and liver. Taken to the OR on 10/18/2024 for laparoscopic jejunostomy tube placement due to dislodgment where he developed abdominal wall infection due to persistent enterocutaneous
fistula/leaking around the J-tube. During his stay he had significant erythema around the drain as well as pain. He also had recent intracranial hemorrhage status post craniotomy at outside hospital and just finished rehab. Additional medical
history includes former smoker, former alcohol use
Medical History
Past Medical History
Past Medical History: Reports Other
Additional Past Medical History:
esophageal cancer status post partial esophagectomy total gastrectomy with Alber-en-Y EJ reconstruction for adenocarcinoma with J-tube place.
esophageal cancer with mets to liver and lung
Post J-tube placement via left thoracoabdominal incision October 14, 2024
Abdominal wall cellulitis status post J-tube removal November 2024
Intracranial hemorrhage November 2021
Former smoker
Former alcohol use
Past Surgical History: Reports Other
Additional Past Surgical History:
partial esophagectomy, gastrectomy for adenocarcinoma 03/2021; J-tube placement October 14, 2024, J-tube removal
November 2024 craniotomy secondary to intracranial hemorrhage
Social History
Tobacco: Former Smoker
Alcohol: None
Drug: None
Personal: Single
Living: With Family
Family History
Family History: Not pertinent
Allergies / Home Medications
Allergies reflects when Allergies were last updated in [facility].
Home Medications with original date entered in [facility]
Allergy/Medication List:
Allergies
Allergy/AdvReac Type Severity Reaction Status Date / Time
No Known Allergies Allergy Verified 12/21/24 06:35
Home Medications
atorvastatin 40 mg tablet 40 mg PO QPM 12/14/24
famotidine 20 mg tablet 20 mg PO BID 12/14/24
midodrine 5 mg tablet 5 mg PO TID 12/14/24
pantoprazole 40 mg tablet,delayed release (Protonix) 40 mg PO DAILY 12/16/24
cephalexin 500 mg capsule 500 mg PO QID 1 day #4 caps 12/19/24
oxycodone 5 mg/5 mL oral solution 5 mg (5 mL) PO Q6H PRN Pain #100 mL 12/20/24
Review of Systems
-
History Source: Patient
A 12 point ROS was completed and negative except as noted: Yes
Constitutional: Reports Fatigue; Denies Chills
EENT: Denies Sore Throat
Respiratory: Reports Trouble Breathing
Cardiac: Reports Chest Pain; Denies Diaphoresis, Palpitations or Syncope
Abdomen/GI: Reports Abdominal Pain, Nausea, Vomiting and Other (Left lower quadrant of abdomen prior fistula site with current drainage serosanguineous); Denies Diarrhea or Constipated
: Denies Dysuria, Frequency, Flank Pain or Incontinence
Musculoskeletal: Denies Joint Pain or Edema
Skin: Denies Itching or Rash
Neurological: Reports Weakness (Generalized due to dehydration); Denies Dizzy or Headache
Endocrine: Reports No Symptoms
Hematologic/Lymphatic: Reports No Symptoms
Psych: Reports Calm
Physical Exam
Vital Signs
Vital Signs
Temp Pulse Resp BP Pulse Ox
97.9 F 105 16 136/114 95
12/21/24 09:27 12/21/24 11:51 12/21/24 11:51 12/21/24 11:51 12/21/24 11:51
Physical Exam
General: Conversant; No Pain, Fever or Chills
HEENT: NormoCephalic, Anicteric, PERRLA, Athelstan Conjunctivae, No Ptosis and Other (Dry oral mucosa)
Respiratory: Clear and Other (Chest tube present to left chest wall diminished breath sounds right lung); No Wheezes, Rales or Rhonchi
Cardiac: S1/S2 and Tachycardia (Sinus tachycardia 108 bpm); No Murmur, Rub, Gallop or Peripheral Edema
GI: Soft, Normal Bowel Sounds, Tender (Generalized) and Other (Left lower quadrant of abdomen prior fistula site with current drainage serosanguineous)
Rectal: Deferred by Provider
Genito-urinary: Deferred by me
Musculoskeletal: No Clubbing, No Cyanosis and No Edema
Neuro: Cranial Nerves Intact, No Sensory Deficits and Other (Drowsy but oriented x 3 post sedation for right sided chest tube); No Slurred Speech, Facial Droop or Tremors
Psych: Calm
Laboratory Results
-
12/21/24 07:22
12/21/24 07:22
Laboratory Results
Lactic Acid 2.8 mmol/L (0.7-2.0) H 12/21/24 07:22
Total Bilirubin 0.8 mg/dl (0.2-1.3) 12/21/24 07:22
AST 23 U/L (17-59) 12/21/24 07:22
ALT 14 U/L (0-50) 12/21/24 07:22
Alkaline Phosphatase 175 U/L (38-126) H 12/21/24 07:22
Troponin I < 0.012 ng/ml 12/21/24 07:22
Lipase 24 U/L (23-300) 12/21/24 07:22
Data Reviewed
-
Diagnostic Radiology: Report Reviewed by me
CT Scan: Report Reviewed by me
Lab Data: Labs Reviewed by me
Impression/Plan
-
Impression/plan:
Admit to IMU
#Large left-sided hydropneumothorax status post chest tube with subcutaneous left axilla Emphysema
#Small right-sided hydropneumothorax
95% liters nasal cannula
- Status post chest tube by IR left-sided
- Repeat CXR at 1330 per IR
- Monitor pulse oximetry oxygen via nasal cannula as needed
- IV Dilaudid as needed pain
- IV Zofran, IV Phenergan
CXR post left chest tube insertion: 1. Left chest tube in stable position with improved appearance of bilateral pneumothoraces.
2. There is new subcutaneous emphysema within the left axilla.
3 Again seen is a large diaphragmatic hernia with multiple loops of bowel occupying the left hemithorax.
CT chest abdomen pelvis:
1. Interval development of bilateral hydropneumothoraces, left greater than right.
2. Interval significant worsening of large diaphragmatic hernia with multiple loops of bowel within both hemithoraces, left greater than right. Multiple loops of bowel occupy the majority of the left hemithorax.
Moreover, there are multiple fluid-filled dilated small bowel loops within the left midabdomen measuring 5.9 cm with several decompressed bowel loops seen within the left chest suspicious for
superimposed small bowel obstruction.
Moderate amount of free fluid seen within the pelvis.
3. Interval worsening of metastatic disease within the chest. Interval enlargement of right adrenal metastasis. Grossly stable hepatic metastatic disease.
There appears to be new sclerotic lesion involving the right eighth rib.
4. Soft tissue wound seen within the left upper quadrant site of prior J-tube. There are small foci of gas seen within the deeper soft tissue no gross evidence for pneumoperitoneum.
Presence of enteric cutaneous fistula cannot be excluded.
#Small bowel obstruction
#Large diaphragmatic hernia with multiple loops of bowel within the Willard thoraces left greater than right
#InTractable nausea vomiting/volume depletion due to above
Patient is accepted at [facility] by Surgery @ [address] Marcus Surgical oncology and [facility] icu Dr Harris
N.p.o.
-Consult general surgery
- IV NSS
-IV Zofran
- IV PPI
- IV Dilaudid
#Tachycardia with hypotension concerning for underlying bacterial infection pulmonary versus intra-abdominal at 1941 PM
-Will check Pro-Govind, lactic acid, blood cultures x 2
-Will give IV Zosyn
-Additional IV NSS 500 cc bolus
-Continue IV NSS 100 cc/h
#Esophageal cancer Dx 2021 with reoccurrence August 2023
#status post partial esophagectomy total gastrectomy with Alber-en-Y EJ reconstruction for adenocarcinoma with J-tube place
#NEW sclerotic lesion right eighth rib worsening metastatic disease within the chest enlargement right adrenal metastases stable hepatic metastatic disease
- [facility] had discussion in September with Dr. Reeder regarding palliative care now progressing on HER2 directed therapy patient was deciding on answer
#Current abdominal wall fistula
#Prior leaking J-tube status post removal due to abdominal wall cellulitis�resolved
#Patient's status post laparoscopic assisted open takedown of enterocutaneous fistula, small bowel resection 12/16/2024
#Status post incision and debridement of an abdominal wall soft tissue infection 12/16/2024
#Intracranial bleed left cerebellar intraparenchymal s/p craniotomy [place] October 2024
#former smoker
#Former etoh use
DVT prophylaxis
SCDs
Full code
--- NOTE | 2024-12-21 16:17 | CON.GS ---
Consultation
-
Date/Time Consultation Requested: 12/21/2024 3 PM
Date/Time Consultation Performed: 12/21/2024 4 PM
Requesting Provider: ED
Performing Provider: Dr. Pan
Reason for Consultation: Nausea vomiting
Medical History
-
Chief Complaint: Nausea vomiting
History of Present Illness:
Updated by emergency department that Art came back in today with nausea vomiting and some mild shortness of breath found to have enlarging left pneumothorax (likely secondary to advancing/enlarging metastases) with near complete collapse of his
left lung as well as a right pneumothorax. In addition to his hiatal hernia has enlarged and likely causing a small bowel obstruction. I reviewed and interpreted his CT scan images personally which though do not contain oral contrast show his
anastomosis is intact and that the likely site of obstruction is at the hiatal hernia. Patient is sedated and unable to give any history but I did talk to the patient's POONAM Bell. Given the complexity of this and the fact that we do not have
dedicated thoracic surgery team here at [place], I recommended the patient be transferred back to [place] where he had his initial surgery if the patient and family wish to pursue surgical repair though given the progressive nature of his cancer, a
discussion regarding goals of care would be very reasonable as well.
Past Medical History
Past Medical History: Other (Esophageal cancer with metastasis to the lung and liver, recent hemorrhagic stroke status post craniotomy)
Past Surgical History: Other (Esophageal resection, gastrectomy, J-tube replacement complicated by dislodgment and reversal/small bowel resection 1 week ago)
Social History
Tobacco: Former Smoker
Alcohol: None
Drug: None
Personal: Single
Family History
Family History: Reviewed & Not Pertinent
Allergies / Home Medications
Allergy/AdvReac Type Severity Reaction Status Date / Time
No Known Allergies Allergy Verified 12/21/24 06:35
�Medication �Instructions �Recorded �Confirmed �Type
atorvastatin 40 mg tablet 40 mg PO QPM 12/14/24 12/16/24 History
famotidine 20 mg tablet 20 mg PO BID 12/14/24 12/16/24 History
midodrine 5 mg tablet 5 mg PO TID 12/14/24 12/16/24 History
pantoprazole 40 mg tablet,delayed 40 mg PO DAILY 12/16/24 12/16/24 History
release (Protonix)
cephalexin 500 mg capsule 500 mg PO QID 1 day #4 caps 12/19/24 Rx
oxycodone 5 mg/5 mL oral solution 5 mg (5 mL) PO Q6H PRN Pain #100 mL 12/20/24 Rx
Review of Systems
-
Unable to obtain full review of systems at this time due to: Other (Patient sleeping, critically ill)
A 10 point review of systems was completed, and was negative except as per HPI.
Physical Exam
Vital Signs
Temp Pulse Resp BP Pulse Ox
97.9 F 117 11 132/99 97
12/21/24 09:27 12/21/24 15:30 12/21/24 15:30 12/21/24 15:01 12/21/24 15:30
12/20/24 12/21/24 12/22/24
06:59 06:59 06:59
Actual Weight 59.874 kg
Body Mass Index (BMI) 18.9
Lab Results
12/21/24 07:22
12/21/24 07:22
WBC 5.9 10^3/uL (4.8-10.8) 12/21/24 07:22
Hgb 12.2 g/dL (13.0-18.0) L 12/21/24 07:22
Hct 36.1 % (39.0-52.0) L 12/21/24 07:22
Plt Count 329 10^3/uL (130-400) D 12/21/24 07:22
Abs Immat Gran (auto) 0.0 10^3/uL (0-0.05) 12/21/24 07:22
Neutrophils % 74.4 % (42.2-75.2) 12/21/24 07:22
Physical Exam
General: Other (Uncomfortable and ill-appearing)
Respiratory: Non Labored Respirations
GI: Soft, Non Tender and Incisions (Laparoscopic incisions are clean dry and intact, left upper quadrant wound packing in place)
Data Reviewed
-
CT Scan: Image Personally Visualized and interpreted, Report Reviewed by me, Discussed with Physician and Discussed with Family
Labs: Labs Reviewed by me
Total Time Spent with Patient (in minutes): 10
Assessment / Plan
-
This is a 44-year-old male with with a history of esophageal cancer status post resection via a left thoracoabdominal incision now with progressive disease with mets to both the liver and lungs. He is 5 days out from a laparoscopic assisted open
takedown of his jejunostomy tube for which he was discharged on the . He presents with nausea vomiting and found to have near collapse of his left lung with enlargement of his hiatal hernia and corresponding small bowel obstruction. Though no
contrast was given during the scan it appears widely patent/filled with fluid on the CT.
I suspect his pneumothorax is secondary to worsening metastatic disease of the lung now status post IR chest tube. He may need an additional chest tube for his right side.
If the patient and family wish to pursue further repair, recommend transfer to [place] (where he originally had his initial surgery) or tertiary center with thoracic surgery, however given the progression of the disease reasonable to discuss goals of
care as well.
No role for an NG tube as the patient does not have a stomach. N.p.o., IV fluids.
General surgery will follow peripherally, please call with any questions or concerns.
--- NOTE | 2024-12-21 17:42 | CM ---
CM reviewed chart and met with pt and EVERETT Bell bedside in ED. Pt lives with his brother Ervin who is POA and EVERETT [place]. 1 story home, [address].
Needs assistance with ADLs and personal care. Ambulates with RW.
Was discharged 12/19 from rehab after craniotomy.
Had left chest tube placed in IR. Per MD notes, offered transfer to [place], also recommending goals of care discussion.
[facility].
Confirms prescription coverage.
PCP: Stefan Stafford
Pharmacy: [facility]
CM will continue to follow for all discharge planning needs.
[2024-12-21] MEDS: NSS 500 IV (19:48)
[2024-12-21 20:36] LABS: Procalcitonin 0.16 ng/ml (0.0-0.25)
[2024-12-21] MEDS: DILAUDID 0.5 MG IV (21:10)
[2024-12-21] MEDS: ZOSYN 50 IV (21:48)
--- NOTE | 2024-12-22 10:37 | VNURNOTE ---
Chart reviewed. Patient is current with [facility]. Appears that tentative plan is transfer to [facility]. Will continue to follow hospital course and DC plans.
== END 2024-12-21 23:58 | disposition short-term general hospital (02) ==
LOC: EMR 06:30
PROVIDERS: Clinical Nurse Specialist Family Health; ATTENDING PHYSICIAN Hospitalist; CONSULT PHYSICIAN Radiology Vascular & Interventional Radiology; CONSULT PHYSICIAN Surgery; EMERGENCY PHYSICIAN Emergency Medicine; FAMILY PHYSICIAN Family Medicine
DX: J93.9 Pneumothorax, unspecified (principal); E86.0 Dehydration; K56.609 Unspecified intestinal obstruction, unspecified as to partial versus complete obstruction; K44.9 Diaphragmatic hernia without obstruction or gangrene; D64.9 Anemia, unspecified; R79.89 Other specified abnormal findings of blood chemistry; E87.20 Acidosis, unspecified; C15.9 Malignant neoplasm of esophagus, unspecified; C78.00 Secondary malignant neoplasm of unspecified lung; C78.7 Secondary malignant neoplasm of liver and intrahepatic bile duct; C79.70 Secondary malignant neoplasm of unspecified adrenal gland; Z87.891 Personal history of nicotine dependence
CPT/HCPCS: 96374; 96376 ×3; 32557; 71045; 71046; 71260; 74177; 80053; 83605; 83690; 84145; 84484; 85025; 87040; 93005; 96361; 96365; 96375; 99152; 99153; 99291; Q9967